=== PATIENT | male | born 1995 | race Caucasian/White ===

== ENCOUNTER 2016-06-16 19:54 | Emergency (ER) | payer SELFPAY ==
[~2016-06-16] VITALS: Wt 90.7 kg
[~2016-06-16 19:54] MED LIST: ADDERALL XR 3030 MG PO; ADDERALL XR25 MG PO; CONCERTA54 MG PO; FLEXERIL5 MG PO; MOTRIN400 MG PO; MOTRIN600 MG PO; MOTRIN800 MG PO; Motrin,Rufen800 MG PO; SEROQUEL100 MG PO; SEROQUEL300 MG PO; ULTRAM50 MG PO; VICODIN 5/500 505 MG PO; VISTARIL50 MG PO; XANAX1 MG PO; ZOFRAN ODT4 MG SL
[2016-06-16 20:51] LABS: BASO % 0.1 % (0.0-1.0); EOS % 0.2 % (1.0-4.0); HEMATOCRIT 38.9 % (42.0-52.0); HEMOGLOBIN 13.5 g/dl (14.0-18.0); LYMPH # 2.3 10*3/uL (1.3-4.4); LYMPH % 17.1 % (27.0-41.0); MEAN CELL VOLUME 87.6 fl (80.0-94.0); MEAN CORPUSCULAR HGB 30.4 pg (27.0-31.0); MEAN CORPUSCULAR HGB CONC 34.7 g/dl (33.0-37.0); MEAN PLATELET VOLUME 9.2 fl (9.6-12.3); MONO # 1.1 10*3/uL (0.1-1.0); MONO % 8.2 % (3.0-9.0); NEUT # 9.9 10*3/uL (2.3-7.9); NEUT % 74.1 % (47.0-73.0); PLATELET COUNT AUTOMATED 177 10*3/uL (130-400); RED BLOOD COUNT 4.44 10*6/uL (4.50-5.90); RED CELL DISTRI WIDTH 12.9 % (0-14.5); WHITE BLOOD COUNT 13.4 10*3/uL (4.8-10.8)
[2016-06-16 21:04] LABS: BUN 12 mg/dl (7-24); CARBON DIOXIDE 26 mmol/L (21-32); CHLORIDE 100 mmol/L (98-107); EST GLOM FILT AFRICAN AMERICAN > 60 ml/min; GLUCOSE 85 mg/dL (65-99); POTASSIUM 3.5 mmol/L (3.5-5.1); SODIUM 134 mmol/L (136-145)
[2016-06-16] MEDS ORDERED: FLAGYL500 MG PO (23:49)
[2016-06-16] MEDS ORDERED: KEFLEX500 M1 PO (23:49)
[2016-06-16] MEDS ORDERED: Motrin,Rufen800 MG PO (23:49)
== END 2016-06-17 01:28 | disposition home or self-care (01) ==
LOC: ED 19:54
PROVIDERS: Emergency Medicine Emergency Medical Services
DX: L03.317 Cellulitis of buttock (principal); F41.9 Anxiety disorder, unspecified; F90.9 Attention-deficit hyperactivity disorder, unspecified type; I99.8 Other disorder of circulatory system; F12.10 Cannabis abuse, uncomplicated; F14.10 Cocaine abuse, uncomplicated; F11.10 Opioid abuse, uncomplicated

== ENCOUNTER 2016-07-25 08:00 | Inpatient (IN) | payer SELFPAY ==
[~2016-07-25] VITALS: Ht 203.2 cm; Wt 102.1 kg
[2016-07-25] VITALS (10 sets, daily range): BP systolic 103–120; BP diastolic 53–69
--- NOTE | ~2016-07-25 | CON ---
[place], [place] REPORT OF CONSULTATION NAME: BRIANNA COELLO UNIT #: [id number] ROOM: [place] [address] DOCTOR: EFREM GRECO MD,BETTINA BIRTHDATE: [birth year] DOS: 07/26/2016 PULMONARY CONSULTATION EVALUATION AND MANAGEMENT The pulmonary critical evaluation was done for this patient. REASON FOR CONSULTATION: The patient with acute respiratory failure. HISTORY OF PRESENT ILLNESS: A 21-year-old -[place] male for this patient who has been [place] to be unresponsive [place] the gas station on the curb. The patient was noted change in mental status, drowsiness, sleepiness. He was noted with a block of marijuana by the police, which was confiscated. The patient was advised either going to the [facility] or to the hospital. The patient agreed to come to the hospital and enroute he pulled out the pouch probably containing narcotic from the rectal area and reinserted again further deeper after that. The patient was brought to the hospital, was not answering questions noted change in mental status and some confusional status as well. Urine drug screen was noted positive for multiple illicit drugs. The patient was asked about removal of the drug pouch of the patient because of possibility of inadvertent rupture resulting in major toxicity of the patient and . The patient was not cooperative with that. Subsequently, the patient was intubated, after sedation of the patient and the pouches were recovered by surgery staff with manual manipulation effectively. The abdomen x-rays which were done prior and after removal of pouches does show complete removal of those foreign bodies noted in the rectal area. Currently, the patient is noted on mechanical ventilator requiring high dose of intravenous sedation, the patient with Diprivan and also receiving the IV Versed p.r.n. use 5 mg q.1 hour. He had not been noted any evidence of hypotension or tachycardia at the present time. The patient also remains afebrile. He has not been noted an excessive secretion production from the endotracheal tube. He had not been reported with any findings of hemoptysis. The remaining review of systems could not be completed from the patient because of the patient's current intubation and mechanical ventilatory status. The remaining history could not be obtained as well since the patient is intubated on mechanical ventilation. All the history essentially was reviewed for the patient and completed for the patient after review of the medical record of the patient by the other physician. PAST MEDICAL HISTORY: 1. The patient was noted with a history of ADHD. 2. Past history of cellulitis of the buttock. 3. History of multiple illicit drug use including cocaine, marijuana, opiates. 4. History of tobacco use. SOCIAL HISTORY: The patient has been noted history of tobacco use for long-term for this patient, quantity was unknown. History of illicit drug use was also described. FAMILY HISTORY: For the patient, both parents were noted alive for the patient [place], [place] REPORT OF CONSULTATION NAME: BRIANNA COELLO UNIT #: [id number] ROOM: [place] [address] DOCTOR: EFREM GRECO MD,BETTINA BIRTHDATE: [birth year] without any known medical illnesses. HOME MEDICATIONS: Essentially noted no known home medications. DRUG ALLERGIES: Reported as no known drug allergies. PHYSICAL EXAMINATION: GENERAL: This is a 21-year-old -[place] male, currently intubated and sedated on mechanical ventilation. Height for the patient recorded by the nursing staff at the time of current admission with height of 6 feet. Weight was noted as 102 kilograms. VITAL SIGNS: The patient showed the temperature was 99 degree Fahrenheit to normal temperature, respiratory rate 14-12, heart rate 75-63, blood pressure 110/60-121/76. Pulse oxygen saturation 30% oxygen 100% saturation recorded. Intake for the patient 3.292 liters, output 2.275 liters. HEENT: Moderate obesity. The patient orally intubated with endotracheal tube #6. Neck was supple. Head was atraumatic. Eyes: Nonicterus. CARDIOVASCULAR SYSTEM: S1, S2 is audible. LUNGS: The patient was noted without any wheeze or crackles at the present time. The breaths are noted mildly decreased bilaterally. ABDOMEN: Soft, obese, nontender. EXTREMITIES: Show no edema, clubbing, cyanosis, visible skin. No lesions or rashes. MUSCULOSKELETAL SYMPTOMS: No gross deformities. CENTRAL NERVOUS SYSTEM: Could not be examined since the patient is intubated. LABORATORY DATA: Lactic acid 07/25/2016 was 1.0 on admission. CBC on 07/25/2016 on admission, WBC count 4.9, hemoglobin 12.3, hematocrit 35.9, platelet count was normal. PT/PTT for the patient was noted as normal. The CMP for this patient that was done for this patient on 07/25/2016 on admission was noted as normal. CMP of the patient noted on 07/25/2016 for this patient, potassium 3.4, remaining electrolytes grossly normal. The liver function tests were normal. CK-MB and troponin normal. Urine drug screen positive for benzodiazepine, THC, cocaine and opiates. Arterial blood gas of the patient, pH of 7.38, pCO2 of 45, pO2 of 132 postintubation 30% oxygen assist control mode of mechanical ventilation. ABG this morning, pH of 7.35, pCO2 of 49, pO2 of 105. CBC 07/26/2016 for the patient essentially remains grossly normal. CK-MB and troponin repeated again this morning were noted as normal. Chest x-ray which was done this morning, endotracheal tube was noted in proper position. No acute abnormalities such as pleural effusion noted. The PT/INR this morning was repeated again and noted as normal. IMPRESSION: 1. The patient who has been noted with current use of illicit drugs, multifactorial change in mental status with acute respiratory failure as a factor and also requiring sedation. 2. Removal of the illicit drugs in the form of pouches from the rectal area for this patient as well. 3. History of chronic dependence on the illicit drugs. There were no signs of any active infection or others. [place], [place] REPORT OF CONSULTATION NAME: BRIANNA COELLO UNIT #: [id number] ROOM: [place] [address] DOCTOR: BETTINA AYALA MD BIRTHDATE: [birth year] 4. History of chronic eqru-fx-qoeazhlu obesity as well. 5. History of tobacco dependence. Several psychiatric problem has been listed in the past history as well. PLAN OF TREATMENT: Discontinue sedation completely. Once the patient noted awake and alert, consider extubation for this patient as the patient does not require to be intubated for any reason. Monitor respiratory status post extubation. Start the patient on oral diet for this patient post-extubation if noted with the normal mental status. Further supportive therapy, plan of management and care and treatment as in progress. Other treatment changes will be done for the patient. Ventilator bundle management continue for the patient in progress for the patient since hospitalization. Further change in treatment done based on progression of the illness. Total time for pulmonary critical care evaluation and management was 33 minutes. BETTINA TOPETE MD CM:CONSTR:REPORT OF CONSULTATION 1206 07/28/16 1538 interface
[~2016-07-25 08:00] MED LIST changes: +FLAGYL500 MG PO; +KEFLEX500 M1 PO
[2016-07-25 09:36] LABS: BASO % 0.4 % (0.0-1.0); EOS # 0.1 10*3/uL (0.0-0.4); EOS % 2.6 % (1.0-4.0); HEMATOCRIT 35.9 % (42.0-52.0); HEMOGLOBIN 12.3 g/dl (14.0-18.0); LYMPH # 1.9 10*3/uL (1.3-4.4); LYMPH % 38.3 % (27.0-41.0); MEAN CELL VOLUME 87.8 fl (80.0-94.0); MEAN CORPUSCULAR HGB 30.1 pg (27.0-31.0); MEAN CORPUSCULAR HGB CONC 34.3 g/dl (33.0-37.0); MONO # 0.7 10*3/uL (0.1-1.0); MONO % 13.4 % (3.0-9.0); NEUT # 2.2 10*3/uL (2.3-7.9); NEUT % 45.1 % (47.0-73.0); PLATELET COUNT AUTOMATED 175 10*3/uL (130-400); RED BLOOD COUNT 4.09 10*6/uL (4.50-5.90); RED CELL DISTRI WIDTH 13.8 % (0-14.5); WHITE BLOOD COUNT 4.9 10*3/uL (4.8-10.8)
[2016-07-25 09:44] LABS: PROTHROMBIN TIME 10.4 SECONDS (9.0-12.4)
[2016-07-25 09:51] LABS: ALBUMIN 3.6 gm/dl (3.1-4.5); ALKALINE PHOSPHATASE 101 U/L (45-117); BILIRUBIN, TOTAL 0.3 mg/dl (0.2-1.0); BUN 15 mg/dl (7-24); CARBON DIOXIDE 28 mmol/L (21-32); CHLORIDE 108 mmol/L (98-107); CKMB 1.1 ng/ml (0.5-3.6); CPK 213 U/L (39-308); EST GLOM FILT AFRICAN AMERICAN > 60 ml/min; GLUCOSE 86 mg/dL (65-99); MAGNESIUM 2.2 mg/dL (1.5-2.1); POTASSIUM 3.4 mmol/L (3.5-5.1); SGOT/AST 22 IU/L (3-35); SGPT/ALT 27 U/L (12-78); SODIUM 143 mmol/L (136-145); TOTAL PROTEIN 8.4 gm/dL (6.4-8.2)
[2016-07-25 09:52] LABS: C-REACTIVE PROTEIN < 0.29 MG/DL (0-0.3); TROPONIN I < 0.015 ng/ml (<0.045)
[2016-07-25 13:59] LABS: BILIRUBIN NEGATIVE (NEGATIVE); BLOOD NEGATIVE (NEGATIVE); CLARITY CLEAR (CLEAR); COLOR YELLOW (YELLOW); GLUCOSE NEGATIVE (NEGATIVE); KETONE NEGATIVE (NEGATIVE); LEUKO ESTERASE NEGATIVE (NEGATIVE); NITRITE NEGATIVE (NEGATIVE); PH 5.5 (5.0-9.0); PROTEIN NEGATIVE (NEGATIVE); UROBILINOGEN 0.2 E.U./dl (0.2-1.0)
[2016-07-25 14:02] LABS: URINE AMPHETAMINES < 1000 (1000ng/ml); URINE BARBITURATES < 200 (200ng/ml); URINE COCAINE > 300 (300ng/ml)
[2016-07-25 14:08] LABS: BACTERIA TRACE; URINE REFLEX COMMENT NO (NO)
[2016-07-25 18:14] LABS: ABG BASE EXCESS 1.3 mmol/L (-2.0-2.0); ABG HCO3 26.6 mmol/l (22-26); ABG TEMPERATURE 97.5 F (98.0-99.0); ARTERIAL BLOOD GAS PH 7.381 (7.35-7.45)
[2016-07-25 18:24] LABS: CPK 200 U/L (39-308)
[2016-07-25 18:28] LABS: TROPONIN I < 0.015 ng/ml (<0.045)
[2016-07-26] VITALS (7 sets, daily range): BP systolic 104–124; BP diastolic 52–80
[2016-07-26 00:38] LABS: CPK 171 U/L (39-308)
[2016-07-26 00:39] LABS: TROPONIN I < 0.015 ng/ml (<0.045)
[2016-07-26 05:46] LABS: ABG BASE EXCESS 1.2 mmol/L (-2.0-2.0); ABG CO2 CONTENT 28.8 mmol/L (23-27); ABG HCO3 27.2 mmol/l (22-26); ABG TEMPERATURE 97.3 F (98.0-99.0); ARTERIAL BLOOD GAS PH 7.358 (7.35-7.45)
[2016-07-26 08:17] LABS: BASO % 0.2 % (0.0-1.0); EOS # 0.3 10*3/uL (0.0-0.4); EOS % 4.3 % (1.0-4.0); HEMATOCRIT 39.6 % (42.0-52.0); HEMOGLOBIN 13.4 g/dl (14.0-18.0); LYMPH # 1.2 10*3/uL (1.3-4.4); LYMPH % 18.2 % (27.0-41.0); MEAN CELL VOLUME 89.4 fl (80.0-94.0); MEAN CORPUSCULAR HGB 30.2 pg (27.0-31.0); MEAN CORPUSCULAR HGB CONC 33.8 g/dl (33.0-37.0); MEAN PLATELET VOLUME 9.7 fl (9.6-12.3); MONO # 0.6 10*3/uL (0.1-1.0); MONO % 9.2 % (3.0-9.0); NEUT # 4.5 10*3/uL (2.3-7.9); NEUT % 67.9 % (47.0-73.0); PLATELET COUNT AUTOMATED 180 10*3/uL (130-400); RED BLOOD COUNT 4.43 10*6/uL (4.50-5.90); RED CELL DISTRI WIDTH 14.2 % (0-14.5); WHITE BLOOD COUNT 6.6 10*3/uL (4.8-10.8)
[2016-07-26 08:17] LABS: CKMB 1.2 ng/ml (0.5-3.6)
[2016-07-26 08:25] LABS: CPK 231 U/L (39-308); TROPONIN I < 0.015 ng/ml (<0.045)
[2016-07-26 08:45] LABS: ALBUMIN 3.3 gm/dl (3.1-4.5); ALKALINE PHOSPHATASE 97 U/L (45-117); BILIRUBIN, TOTAL 0.4 mg/dl (0.2-1.0); BUN 8 mg/dl (7-24); CARBON DIOXIDE 30 mmol/L (21-32); CHLORIDE 111 mmol/L (98-107); CHOLESTEROL 134 mg/dL (<200); EST GLOM FILT AFRICAN AMERICAN > 60 ml/min; FREE T4 1.07 ng/dl (0.76-1.46); GLUCOSE 84 mg/dL (65-99); HDL CHOLESTEROL 44 mg/dl (40-60); LDL CHOLESTEROL 61 mg/dL (9-159); MAGNESIUM 2.3 mg/dL (1.5-2.1); PHOSPHOROUS 3.6 mg/dL (2.5-4.9); POTASSIUM 3.8 mmol/L (3.5-5.1); PROTHROMBIN TIME 10.3 SECONDS (9.0-12.4); SGOT/AST 25 IU/L (3-35); SGPT/ALT 25 U/L (12-78); SODIUM 147 mmol/L (136-145); TOTAL PROTEIN 7.8 gm/dL (6.4-8.2); TRIGLYCERIDES 147 mg/dl (<150); VLDL CHOLESTEROL 29 mg/dL (6-40)
[2016-07-26 09:08] LABS: VITAMIN D, 25-HYDROXY 24.1 ng/mL (30-100)
[2016-07-26 10:17] LABS: FOLIC ACID 20.93 ng/mL (>5.38)
== END 2016-07-26 19:31 | disposition left against medical advice (07) | DRG 393 ==
LOC: ED 08:00 → EDHOLD 13:11 → ICCU 13:44 → 5E 15:14 → ICCU 15:24
PROVIDERS: Emergency Medicine; Internal Medicine; Internal Medicine Critical Care Medicine
PROC: 5A1935Z Respiratory Ventilation, Less than 24 Consecutive Hours (ICD-10-PCS; principal; 2016-07-25)
PROC: 0BH17EZ Insertion of Endotracheal Airway into Trachea, Via Natural or Artificial Opening (ICD-10-PCS; principal; 2016-07-25)
DX: T18.5XXA Foreign body in anus and rectum, initial encounter (principal); G93.41 Metabolic encephalopathy; J96.00 Acute respiratory failure, unspecified whether with hypoxia or hypercapnia; F19.10 Other psychoactive substance abuse, uncomplicated; F90.9 Attention-deficit hyperactivity disorder, unspecified type; F41.9 Anxiety disorder, unspecified; D64.9 Anemia, unspecified; E87.6 Hypokalemia; E83.41 Hypermagnesemia; F11.10 Opioid abuse, uncomplicated; F12.10 Cannabis abuse, uncomplicated; F14.10 Cocaine abuse, uncomplicated; F13.10 Sedative, hypnotic or anxiolytic abuse, uncomplicated; J02.9 Acute pharyngitis, unspecified; L29.9 Pruritus, unspecified; Z53.21 Procedure and treatment not carried out due to patient leaving prior to being seen by health care provider; X58.XXXA Exposure to other specified factors, initial encounter; Y93.89 Activity, other specified; Y92.89 Other specified places as the place of occurrence of the external cause; Y99.8 Other external cause status

== ENCOUNTER → 2016-09-05 | Outpatient (CLI) | payer OTHER ==
[2016-09-05 15:21] LABS: HEMATOCRIT 44.3 % (42.0-52.0); HEMOGLOBIN 15.1 g/dl (14.0-18.0); MEAN CELL VOLUME 87.4 fl (80.0-94.0); MEAN CORPUSCULAR HGB 29.8 pg (27.0-31.0); MEAN CORPUSCULAR HGB CONC 34.1 g/dl (33.0-37.0); MEAN PLATELET VOLUME 9.4 fl (9.6-12.3); RED BLOOD COUNT 5.07 10*6/uL (4.50-5.90); RED CELL DISTRI WIDTH 14.5 % (0-14.5); WHITE BLOOD COUNT 8.2 10*3/uL (4.8-10.8)
[2016-09-05 15:35] LABS: ALBUMIN 3.7 gm/dl (3.1-4.5); ALKALINE PHOSPHATASE 88 U/L (45-117); BILIRUBIN, TOTAL 0.5 mg/dl (0.2-1.0); BUN 8 mg/dl (7-24); CARBON DIOXIDE 27 mmol/L (21-32); CHLORIDE 105 mmol/L (98-107); CHOLESTEROL 114 mg/dL (<200); EST GLOM FILT AFRICAN AMERICAN > 60 ml/min; GLUCOSE 97 mg/dL (65-99); HDL CHOLESTEROL 42 mg/dl (40-60); LDL CHOLESTEROL 48 mg/dL (9-159); SGOT/AST 21 IU/L (3-35); SGPT/ALT 16 U/L (12-78); SODIUM 141 mmol/L (136-145); TOTAL PROTEIN 8.7 gm/dL (6.4-8.2); TRIGLYCERIDES 121 mg/dl (<150); VLDL CHOLESTEROL 24 mg/dL (6-40)
[2016-09-06 07:46] LABS: HEPATITIS C VIRUS ANTIBODY 0.1 s/co (0.0-0.9)
[2016-09-06 16:13] LABS: LOG10 HIV-1 RNA 4.118 (.)
== END | disposition home or self-care (01) ==
LOC: LAB 14:57
PROVIDERS: Family Medicine
DX: Z13.220 Encounter for screening for lipoid disorders (principal); E55.9 Vitamin D deficiency, unspecified; R53.83 Other fatigue; R75 Inconclusive laboratory evidence of human immunodeficiency virus [HIV]

== ENCOUNTER 2016-10-08 14:44 | Emergency (ER) | payer OTHER ==
[~2016-10-08] VITALS: Ht 180.3 cm; Wt 74.8 kg
[2016-10-08 14:59] VITALS: BP 143/88
== END 2016-10-08 17:37 | disposition short-term general hospital (02) ==
LOC: ED 14:44
DX: S02.91XA Unspecified fracture of skull, initial encounter for closed fracture (principal); S06.319A Contusion and laceration of right cerebrum with loss of consciousness of unspecified duration, initial encounter; S06.2X9A Diffuse traumatic brain injury with loss of consciousness of unspecified duration, initial encounter; F12.10 Cannabis abuse, uncomplicated; F17.200 Nicotine dependence, unspecified, uncomplicated; F90.9 Attention-deficit hyperactivity disorder, unspecified type; Y08.89XA Assault by other specified means, initial encounter; Y93.89 Activity, other specified; Y92.413 State road as the place of occurrence of the external cause; Y99.9 Unspecified external cause status

== ENCOUNTER 2016-10-15 18:26 | Emergency (ER) | payer OTHER ==
[~2016-10-15] VITALS: Ht 182.8 cm; Wt 99.8 kg
[2016-10-15 18:40] VITALS: BP 120/76
== END 2016-10-15 18:53 | disposition left against medical advice (07) ==
LOC: ED 18:26
DX: S09.90XA Unspecified injury of head, initial encounter (principal); R51 Headache; F17.200 Nicotine dependence, unspecified, uncomplicated; F12.10 Cannabis abuse, uncomplicated; F90.9 Attention-deficit hyperactivity disorder, unspecified type; F14.10 Cocaine abuse, uncomplicated; Z90.89 Acquired absence of other organs; Z53.21 Procedure and treatment not carried out due to patient leaving prior to being seen by health care provider; W19.XXXA Unspecified fall, initial encounter; Y93.89 Activity, other specified; Y92.89 Other specified places as the place of occurrence of the external cause; Y99.9 Unspecified external cause status

== ENCOUNTER 2016-10-26 02:51 | Emergency (ER) | payer OTHER ==
[~2016-10-26] VITALS: Ht 182.8 cm; Wt 99.8 kg
[2016-10-26 03:35] LABS: BASO % 0.4 % (0.0-1.0); EOS # 0.1 10*3/uL (0.0-0.4); EOS % 1.5 % (1.0-4.0); HEMOGLOBIN 11.7 g/dl (14.0-18.0); LYMPH # 1.4 10*3/uL (1.3-4.4); MEAN CORPUSCULAR HGB 29.3 pg (27.0-31.0); MEAN CORPUSCULAR HGB CONC 34.4 g/dl (33.0-37.0); MEAN PLATELET VOLUME 8.7 fl (9.6-12.3); MONO # 0.4 10*3/uL (0.1-1.0); MONO % 8.8 % (3.0-9.0); NEUT # 2.9 10*3/uL (2.3-7.9); NEUT % 60.1 % (47.0-73.0); PLATELET COUNT AUTOMATED 307 10*3/uL (130-400); RED CELL DISTRI WIDTH 13.4 % (0-14.5); WHITE BLOOD COUNT 4.8 10*3/uL (4.8-10.8)
[2016-10-26 03:49] LABS: ALBUMIN 3.4 gm/dl (3.1-4.5); BILIRUBIN, TOTAL 0.2 mg/dl (0.2-1.0); BUN 13 mg/dl (7-24); C-REACTIVE PROTEIN < 0.29 MG/DL (0-0.3); CARBON DIOXIDE 26 mmol/L (21-32); CHLORIDE 110 mmol/L (98-107); EST GLOM FILT AFRICAN AMERICAN > 60 ml/min; GLUCOSE 91 mg/dL (65-99); POTASSIUM 3.4 mmol/L (3.5-5.1); SGOT/AST 12 IU/L (3-35); SGPT/ALT 14 U/L (12-78); SODIUM 141 mmol/L (136-145); TOTAL PROTEIN 7.8 gm/dL (6.4-8.2)
[2016-10-26 04:00] LABS: BILIRUBIN NEGATIVE (NEGATIVE); BLOOD NEGATIVE (NEGATIVE); CLARITY CLEAR (CLEAR); COLOR YELLOW (YELLOW); GLUCOSE NEGATIVE (NEGATIVE); KETONE NEGATIVE (NEGATIVE); LEUKO ESTERASE NEGATIVE (NEGATIVE); NITRITE NEGATIVE (NEGATIVE); PROTEIN TRACE (NEGATIVE); SPECIFIC GRAVITY >= 1.030 (1.005-1.030); UROBILINOGEN 0.2 E.U./dl (0.2-1.0)
[2016-10-26 04:02] LABS: ALKALINE PHOSPHATASE 77 U/L (45-117)
[2016-10-26 04:06] LABS: URINE AMPHETAMINES < 1000 (1000ng/ml); URINE BARBITURATES < 200 (200ng/ml); URINE COCAINE > 300 (300ng/ml)
[2016-10-26 04:07] LABS: MUCOUS TRACE
[2016-10-26 06:06] VITALS: BP 113/56
[2016-10-26] MEDS ORDERED: KEPPRA500 MG PO (06:56)
== END 2016-10-26 09:05 | disposition home or self-care (01) ==
LOC: ED 02:51
PROVIDERS: Emergency Medicine Emergency Medical Services
DX: G40.909 Epilepsy, unspecified, not intractable, without status epilepticus (principal); S02.19XD Other fracture of base of skull, subsequent encounter for fracture with routine healing; F12.10 Cannabis abuse, uncomplicated; X58.XXXD Exposure to other specified factors, subsequent encounter

== ENCOUNTER 2017-01-09 14:07 | Inpatient (IN) | payer OTHER ==
[~2017-01-09] VITALS: Ht 182.8 cm; Wt 92.6 kg
[~2017-01-09 14:07] MED LIST changes: -ADDERALL XR20 MG PO
[2017-01-09 14:21] VITALS: BP 130/79
[2017-01-09 14:47] LABS: BILIRUBIN NEGATIVE (NEGATIVE); BLOOD NEGATIVE (NEGATIVE); CLARITY CLEAR (CLEAR); COLOR YELLOW (YELLOW); GLUCOSE NEGATIVE (NEGATIVE); KETONE TRACE (NEGATIVE); LEUKO ESTERASE TRACE (NEGATIVE); NITRITE NEGATIVE (NEGATIVE); PH 6.5 (5.0-9.0); UROBILINOGEN 0.2 E.U./dl (0.2-1.0)
[2017-01-09 14:56] LABS: URINE AMPHETAMINES < 1000 (1000ng/ml); URINE BARBITURATES < 200 (200ng/ml); URINE BENZODIAZEPINES < 200 (200ng/ml); URINE CANNABINOIDS (THC) > 50 (50ng/ml); URINE COCAINE > 300 (300ng/ml); URINE METHADONE < 300 (300ng/ml); URINE OPIATES < 300 (300ng/ml)
[2017-01-09 15:01] LABS: BACTERIA TRACE; MUCOUS 1+
[2017-01-09 15:04] LABS: URINE PHENCYCLIDINE < 25 (25ng/ml)
[2017-01-09 16:00] VITALS: BP 115/58
[2017-01-09 17:30] VITALS: BP 118/74
--- NOTE | 2017-01-09 17:30 | NUR ---
Time: 1729 A 21 year old MALE admitted to 5E under services of SUZANNE TEAGUE DO. Pt. arrived via bed from ER. Chief complaint: OPIATE WITHDRAWAL. ALEXANDRE PALAFOX
--- NOTE | 2017-01-09 17:34 | NUR ---
REPORT GIVEN TO GEORGI CLEMONS AT THIS TIME PATIENT TAKEN TO 5TH FLOOR BY DALE PARRA AT THIS TIME.
--- NOTE | 2017-01-09 17:45 | NUR ---
PATIENT RESTING QUIETLY IN BED, NO SXS OF DISTRESS. NO VOICED COMPLAINTS AT THIS TIME.RESPIRATIONS EASY/REGULAR. CALL LIGHT IN REACH. WILL MONITOR.
[2017-01-09] MEDS ORDERED: SEROQUEL XR300 MG PO (17:52)
[2017-01-09] MEDS ORDERED: ADDERALL XR20 MG PO (17:53)
[2017-01-09 18:22] VITALS: BP 142/81
--- NOTE | 2017-01-09 23:31 | NUR ---
Patient reports the following symptoms of withdrawal: body aches, leg pain, nausea and cravings. Patient given scheduled/PRN medication to control withdrawal symptoms. Close observation will be maintained.
[2017-01-10] VITALS: BP 122/66
--- NOTE | 2017-01-10 00:45 | NUR ---
Patient resting. Responding to scheduled medications with fewer complaints of pain and anxiety.
[2017-01-10 05:11] LABS: HEMOGLOBIN 12.9 g/dL (12.6-17.7); RBC 4.27 x10E6/uL (4.14-5.80); WBC 3.9 x10E3/uL (3.4-10.8)
[2017-01-10 08:00] VITALS: BP 100/55
[2017-01-10 11:04] LABS: ABSOLUTE CD 4 HELPER 172 /uL (359-1519); CD 4 POS LYMPH, % 14.3 % (30.8-58.5)
[2017-01-10 12:00] VITALS: BP 133/82
[2017-01-10 16:00] VITALS: BP 121/64
--- NOTE | 2017-01-10 16:16 | NUR ---
D/C PLANNING: PATIENT WANTS TO GO TO [facility] FOR [facility] TREAT[facility] FOR HIS AFTERCARE PLAN. ALEXI LEONARD B.A. [facility]ILDREN'S [employer]
--- NOTE | 2017-01-10 18:11 | NUR ---
NOTIFIED DR MOONEY OF NEW CONSULT FOR LOW CD4 COUNT.
[2017-01-10 20:00] VITALS: BP 121/66
--- NOTE | 2017-01-10 23:00 | NUR ---
Patient resting. Responding to scheduled medications with fewer complaints of pain and anxiety.
[2017-01-11] VITALS: BP 111/46
--- NOTE | 2017-01-11 04:23 | NUR ---
SLEEPING, NO SXS OF DISTRESS. CALL LIGHT IN REACH.
--- NOTE | 2017-01-11 06:23 | NUR ---
SLEPT T/O SHIFT. NO ACUTE EVENTS OVER NIGHT. PATIENT PLEASANT/COOPERATIVE. CURRENTLY SLEEPING, NO SXS OF DISTRESS, CALL LIGHT IS IN REACH.
[2017-01-11 06:49] LABS: BASO % 0.5 % (0.0-1.0); EOS # 0.2 10*3/uL (0.0-0.4); HEMATOCRIT 37.5 % (42.0-52.0); HEMOGLOBIN 13.5 g/dl (14.0-18.0); LYMPH # 1.4 10*3/uL (1.3-4.4); LYMPH % 33.2 % (27.0-41.0); MEAN CELL VOLUME 87.4 fl (80.0-94.0); MEAN CORPUSCULAR HGB 31.5 pg (27.0-31.0); MEAN PLATELET VOLUME 9.7 fl (9.6-12.3); MONO # 0.6 10*3/uL (0.1-1.0); MONO % 13.7 % (3.0-9.0); NEUT % 48.4 % (47.0-73.0); PLATELET COUNT AUTOMATED 193 10*3/uL (130-400); RED BLOOD COUNT 4.29 10*6/uL (4.50-5.90); RED CELL DISTRI WIDTH 13.3 % (0-14.5); WHITE BLOOD COUNT 4.2 10*3/uL (4.8-10.8)
[2017-01-11 07:17] LABS: CREATININE 0.93 mg/dL (0.70-1.30)
[2017-01-11 08:00] VITALS: BP 96/56
--- NOTE | 2017-01-11 08:00 | NUR ---
PT IN BED SLEEPING, EASILY AROUSES. PT DENIES PAIN, N/V/D. LUNGS CLEAR ON AUSCULTATION. NO EDEMA NOTED.
--- NOTE | 2017-01-11 11:19 | NUR ---
PT REQUESTED MEDICATION FOR NICOTINE URGE. NICODERM PATCH APPLIED TO LEFT UPPER ARM.
[2017-01-11 11:40] VITALS: BP 109/65
--- NOTE | 2017-01-11 12:10 | NUR ---
NICOTINE PATCH EFFECTIVE PER PT.
[2017-01-11 16:00] VITALS: BP 135/73
[2017-01-11 20:00] VITALS: BP 127/67
--- NOTE | 2017-01-11 22:53 | NUR ---
PT C/O RESTLESS LEGS, ANXIETY, AND MUSCLE SPASMS. REQUIP, VISTARIL, AND ROBAXIN ADMINISTERED PO. WILL MONITOR FOR EFFECTIVENESS. ALL SAFETY MEASURES IN PLACE. PT IS COOPERATIVE AT THIS TIME. CALL LIGHT IN REACH.
--- NOTE | 2017-01-11 23:30 | NUR ---
REQUIP, VISTARIL, AND ROBAXIN EFFECTIVE. NO FURTHER COMPLAINTS. PT RESTING IN BED AT THIS TIME.
[2017-01-12] VITALS: BP 125/69
--- NOTE | 2017-01-12 03:52 | NUR ---
24 HR chart check completed.
[2017-01-12 08:00] VITALS: BP 109/63
--- NOTE | 2017-01-12 08:00 | NUR ---
PATIENT RESTING IN BED. ADMITS TO SOME CHEST PAIN RATING A 5/10. PATIENT IS REFUSING PAIN MEDICATION AT THIS TIME. STATES THAT THE SUBUTEX GIVEN WILL HELP. VOICES NO OTHER COMPLAINTS. BED IS IN LOW POSITION. CALL LIGHT IS WITHIN REACH.
[2017-01-12] MEDS ORDERED: ATARAX,VISTARIL50 MG PO (10:33)
[2017-01-12] MEDS ORDERED: ZOFRAN 4 MG ED2 TAB PO (10:33)
[2017-01-12] MEDS ORDERED: SEPTDS PO (10:33)
[2017-01-12 11:55] VITALS: BP 125/66
--- NOTE | 2017-01-12 12:55 | NUR ---
Discharge instructions reviewed with patient/family. Patient receptive and verbalizes understanding. Follow-up care arranged. Written instructions given to patient/family. ANGÉLICA YBARRA
== END 2017-01-12 12:55 | disposition home or self-care (01) | DRG 896 ==
LOC: ED 14:07 → 5E 15:08 → EDHOLD 15:08 → 5E 17:27
PROVIDERS: Nurse Practitioner Family; ADMIT Internal Medicine
DX: F11.23 Opioid dependence with withdrawal (principal); B20 Human immunodeficiency virus [HIV] disease; D64.9 Anemia, unspecified; F12.10 Cannabis abuse, uncomplicated; F14.10 Cocaine abuse, uncomplicated; G40.909 Epilepsy, unspecified, not intractable, without status epilepticus; F41.9 Anxiety disorder, unspecified; F90.9 Attention-deficit hyperactivity disorder, unspecified type; G25.81 Restless legs syndrome; F17.210 Nicotine dependence, cigarettes, uncomplicated; Z79.899 Other long term (current) drug therapy; Z71.6 Tobacco abuse counseling

== ENCOUNTER → 2017-01-09 | Outpatient (CLI) | payer OTHER ==
[~2017-01-09] MED LIST changes: +ADDERALL XR20 MG PO; +KEPPRA500 MG PO
[2017-01-09 14:13] LABS: BASO % 0.3 % (0.0-1.0); EOS # 0.1 10*3/uL (0.0-0.4); EOS % 2.5 % (1.0-4.0); HEMATOCRIT 37.2 % (42.0-52.0); HEMOGLOBIN 13.3 g/dl (14.0-18.0); LYMPH # 1.2 10*3/uL (1.3-4.4); LYMPH % 30.3 % (27.0-41.0); MEAN CELL VOLUME 86.5 fl (80.0-94.0); MEAN CORPUSCULAR HGB 30.9 pg (27.0-31.0); MEAN CORPUSCULAR HGB CONC 35.8 g/dl (33.0-37.0); MEAN PLATELET VOLUME 9.4 fl (9.6-12.3); MONO # 0.3 10*3/uL (0.1-1.0); MONO % 7.8 % (3.0-9.0); NEUT # 2.4 10*3/uL (2.3-7.9); NEUT % 59.1 % (47.0-73.0); PLATELET COUNT AUTOMATED 205 10*3/uL (130-400); RED CELL DISTRI WIDTH 13.5 % (0-14.5)
[2017-01-09 14:30] LABS: ALBUMIN 3.8 gm/dl (3.1-4.5); ALKALINE PHOSPHATASE 86 U/L (45-117); BUN 12 mg/dl (7-24); POTASSIUM 3.8 mmol/L (3.5-5.1); SGOT/AST 15 IU/L (3-35); SGPT/ALT 21 U/L (12-78); SODIUM 141 mmol/L (136-145); TOTAL PROTEIN 8.8 gm/dL (6.4-8.2)
[2017-01-09 14:32] LABS: CHLORIDE 110 mmol/L (98-107)
[2017-01-11 19:04] LABS: HIV 1 AB Positive (Negative); HIV 2 AB Negative (Negative)
== END | disposition home or self-care (01) ==
LOC: LAB 12:41
PROVIDERS: Nurse Practitioner Family
DX: B20 Human immunodeficiency virus [HIV] disease (principal); E55.9 Vitamin D deficiency, unspecified; Z79.899 Other long term (current) drug therapy

== ENCOUNTER 2017-01-18 16:10 | Inpatient (IN) | payer OTHER ==
[~2017-01-18] VITALS: Ht 182.8 cm; Wt 93.4 kg
[~2017-01-18 16:10] MED LIST changes: +ADDERALL XR20 MG PO; +ATARAX,VISTARIL50 MG PO; +SEPTDS PO; +SEROQUEL XR300 MG PO; +ZOFRAN 4 MG ED2 TAB PO
[2017-01-18 16:17] VITALS: BP 129/85
[2017-01-18 17:10] LABS: BASO % 0.3 % (0.0-1.0); EOS # 0.1 10*3/uL (0.0-0.4); EOS % 2.4 % (1.0-4.0); HEMATOCRIT 39.5 % (42.0-52.0); HEMOGLOBIN 13.6 g/dl (14.0-18.0); LYMPH # 1.2 10*3/uL (1.3-4.4); LYMPH % 21.6 % (27.0-41.0); MEAN CELL VOLUME 86.2 fl (80.0-94.0); MEAN CORPUSCULAR HGB 29.7 pg (27.0-31.0); MEAN CORPUSCULAR HGB CONC 34.4 g/dl (33.0-37.0); MEAN PLATELET VOLUME 9.8 fl (9.6-12.3); MONO # 0.6 10*3/uL (0.1-1.0); MONO % 9.9 % (3.0-9.0); NEUT # 3.8 10*3/uL (2.3-7.9); NEUT % 65.6 % (47.0-73.0); PLATELET COUNT AUTOMATED 223 10*3/uL (130-400); RED BLOOD COUNT 4.58 10*6/uL (4.50-5.90); WHITE BLOOD COUNT 5.7 10*3/uL (4.8-10.8)
[2017-01-18 17:26] LABS: ALKALINE PHOSPHATASE 94 U/L (45-117); BUN 7 mg/dl (7-24); CHLORIDE 110 mmol/L (98-107); POTASSIUM 4.1 mmol/L (3.5-5.1); SGOT/AST 15 IU/L (3-35); SGPT/ALT 33 U/L (12-78); SODIUM 138 mmol/L (136-145); TOTAL PROTEIN 9.4 gm/dL (6.4-8.2)
--- NOTE | 2017-01-18 17:56 | NUR ---
A MEAL WAS ORDERED FOR THE PATIENT
--- NOTE | 2017-01-18 18:13 | NUR ---
3 OF THE 4 MEDS ON THE MED REC (ALL BUT SEROQUEL) WERE JUST ORDERED ON DISCHARGE 4 DAYS AGO BUT NEVER FILLED.
--- NOTE | 2017-01-18 18:14 | NUR ---
ARRIVED TO FLOOR
--- NOTE | 2017-01-18 18:15 | NUR ---
Time: 1814 A 21 year old MALE admitted to 5E under services of SUZANNE TEAGUE DO. Pt. arrived via wheel chair from ER. Chief complaint: PENILE CELLULITIS. LONNIE LOO
[2017-01-18] MEDS ORDERED: ADDERALL 20 MG20 MG PO (18:17)
--- NOTE | 2017-01-18 18:21 | NUR ---
PER THE PATIENT THIS STARTED TO LOOSE THE SKIN THE DAY HE LEFT HERE. SAID THE DAY BEFORE HE LEFT FELT NEEDLE FEELING BUT DIDN'T SAY ANYTHING. SAYS THIS IS THE 3RD TIME HE LEFT HERE THAT THIS HAPPENED.
[2017-01-18 18:22] VITALS: BP 131/77
--- NOTE | 2017-01-18 18:34 | NUR ---
DENIES BURNING & STINGING WHEN VOIDS. DENIES ITCHING TO AREA JUST HURTS. IV VANCOMYCIN INFUSING FROM ER.
--- NOTE | 2017-01-18 18:50 | NUR ---
DR. MOSELEY TO THE FLOOR TO SEE PATIENT AND STATES HE SPOKE WITH THE CONSULT DR. ARRIOLA REGARDING PENILE CELLULITIS.
[2017-01-18 20:00] VITALS: BP 139/68
--- NOTE | 2017-01-18 20:31 | NUR ---
PT C/O PAIN TO PENIS. RATES IT A 08/27. TYLENOL 650 MG TABLET ADMINSITERED PO. WILL MONITOR FOR EFFECTIVENESS. CALLL LIGHT IN REACH.
--- NOTE | 2017-01-18 21:30 | NUR ---
TYLENOL INEFFECTIVE PER PT. PHYSICIAN NOTIFIED, AWAITING NEW ORDERS.
--- NOTE | 2017-01-18 22:20 | NUR ---
PHYSICIAN ORDERS ONE TIME DOSE OF TORADOL 60 MG. GIVEN AT THIS TIME, TOLERATED WELL BY PT. WILL MONITOR FOR EFFECTIVENESS. CALL LIGHT IN REACH.
--- NOTE | 2017-01-18 23:20 | NUR ---
TORADOL EFFECTIVE. PT RESTING IN BED, NO S/S OF DISTRESS. ALL SAFETY MEASURES IN PLACE, CALL LIGHT IN REACH.
[2017-01-19] VITALS: BP 120/63
--- NOTE | 2017-01-19 04:22 | NUR ---
24 HR chart check completed.
--- NOTE | 2017-01-19 04:48 | NUR ---
PT RESTING PEACEFULLY IN BED AT THIS TIME, NO S/S OF DISTRESS OR PAIN. RESPIRATIONS EASY AND UNLABORED. CALL LIGHT IN REACH.
[2017-01-19 06:51] LABS: BASO % 0.3 % (0.0-1.0); EOS # 0.2 10*3/uL (0.0-0.4); EOS % 4.5 % (1.0-4.0); HEMATOCRIT 36.7 % (42.0-52.0); HEMOGLOBIN 13.3 g/dl (14.0-18.0); LYMPH # 1.3 10*3/uL (1.3-4.4); LYMPH % 32.7 % (27.0-41.0); MEAN CELL VOLUME 87.2 fl (80.0-94.0); MEAN CORPUSCULAR HGB 31.6 pg (27.0-31.0); MEAN CORPUSCULAR HGB CONC 36.2 g/dl (33.0-37.0); MEAN PLATELET VOLUME 9.6 fl (9.6-12.3); MONO # 0.4 10*3/uL (0.1-1.0); MONO % 11.1 % (3.0-9.0); NEUT % 51.4 % (47.0-73.0); PLATELET COUNT AUTOMATED 192 10*3/uL (130-400); RED BLOOD COUNT 4.21 10*6/uL (4.50-5.90)
[2017-01-19 07:34] LABS: BUN 11 mg/dl (7-24); CHLORIDE 109 mmol/L (98-107); PHOSPHOROUS 3.9 mg/dL (2.5-4.9); POTASSIUM 3.8 mmol/L (3.5-5.1); SODIUM 139 mmol/L (136-145)
[2017-01-19 07:41] LABS: THYROID STIM HORMONE (HS) 0.854 uIU/ml (0.358-4.75)
[2017-01-19 08:00] VITALS: BP 98/56
[2017-01-19 08:06] LABS: VITAMIN D, 25-HYDROXY 29.7 ng/mL (30-100)
--- NOTE | 2017-01-19 08:30 | NUR ---
MEDICAL SUPPLY TECHNICIAN VS. PT STATES HE IS ESSENTIALLY HOMELESS. UPON QUESTIONING, STATES HE HAS BEEN STAYING WITH HIS GIRLFRIEND BUT CANNOT LIVE THERE. OFFERED HOMELESS LONG-TERM INFO. STATES HE WILL LIKELY GO BACK TO GIRLFRIEND[place]S [place] BUT WOULD LIKE THE INFORMATION. [place] [facility]ER WILL PROVIDE THIS LATER THIS AM.
--- NOTE | 2017-01-19 09:02 | NUR ---
Patient requested list of homeless shelters. Provided list to patient.
--- NOTE | 2017-01-19 10:45 | NUR ---
BRIANNA COELLO [id number] Please refer to the physician's history and physical for past medical history, comorbid conditions, and allergies. Diagnosis: PENILE CELLULITIS Woo Score: 22,LOW OR NO RISK WOUND DESCRIPTIONS: Location of the wound: penis Thickness: Full Size: 3.5cm x 8.0cm x 0.1cm Tunneling: none Undermining: none Sinus Tract: none Presence of Exudate: Purulent Amount: Light Color: Yellow, red, brown Odor: None Periwound Skin Appearance: Erythema Wound edges: approximated Pain (associated with wound): very tender to touch How does patient state this happened? pt unsure how it happen but stated started about a week ago Surface the patient is resting on: Isoflex SKIN PREVENTION RECOMMENDATION: 1. Pressure redistribution support surface as appropriate 2. Elevate heels 3. Remove boots/TEDS every shift and reapply 4. Head of bed 30 degrees as tolerated 5. Assess nutrition and hydration 6. Manage moisture 7. Avoid the use of containment devices while in bed 8. Use absorptive products on surfaces limit layers of linens on bed 9. Turn and reposition every 1-2 hours in bed and every 1 hour in chair as tolerated 10. Weight shifts every 15 minutes while up in chair 11. Offloading with pillows or device to keep heels elevated off bed 12. Monitor skin at least every shift 13. Inspect under medical devices twice a day WOUND TREATMENT RECOMMENDATIONS: Cleanse area with nss and apply bactroban BID no cover dressing.
[2017-01-19 12:00] VITALS: BP 130/73
[2017-01-19 16:00] VITALS: BP 126/66
[2017-01-19] MEDS ORDERED: ZITHROMAX1 GM PO (16:33)
[2017-01-19] MEDS ORDERED: ACYCLOVIR400 MG PO (16:33)
[2017-01-19] MEDS ORDERED: DOXYCYCLINE100 M3 PO (16:33)
--- NOTE | 2017-01-19 20:10 | NUR ---
PATIENT LEFT [place] AT THIS TIME. SAID HE HAD TO TAKE HIS DAUGHTER TO [place] BECAUSE SHE WAS HAVING SEIZURES. PATIENT LEFT WITHOUT HAVING IV REMOVED.
[2017-01-22 00:03] LABS: HERPES VIRUS CULTURE WO/TYPING Negative (.)
== END 2017-01-19 20:10 | disposition left against medical advice (07) | DRG 977 ==
LOC: ED 16:10 → 5E 18:01
PROVIDERS: Physician Assistant; Student in an Organized Health Care Education/Training Program; ADMIT Internal Medicine
DX: B20 Human immunodeficiency virus [HIV] disease (principal); E87.8 Other disorders of electrolyte and fluid balance, not elsewhere classified; F11.23 Opioid dependence with withdrawal; N48.22 Cellulitis of corpus cavernosum and penis; F07.81 Postconcussional syndrome; G40.909 Epilepsy, unspecified, not intractable, without status epilepticus; F12.10 Cannabis abuse, uncomplicated; F41.9 Anxiety disorder, unspecified; F90.9 Attention-deficit hyperactivity disorder, unspecified type; D64.9 Anemia, unspecified; F14.10 Cocaine abuse, uncomplicated; Z53.21 Procedure and treatment not carried out due to patient leaving prior to being seen by health care provider; Z71.6 Tobacco abuse counseling; Z72.0 Tobacco use; Z82.5 Family history of asthma and other chronic lower respiratory diseases; Z79.899 Other long term (current) drug therapy; Z86.19 Personal history of other infectious and parasitic diseases

== ENCOUNTER 2017-01-28 20:19 | Emergency (ER) | payer OTHER ==
[~2017-01-28] VITALS: Ht 182.8 cm; Wt 93.0 kg
[~2017-01-28 20:19] MED LIST changes: +ACYCLOVIR400 MG PO; +ADDERALL 20 MG20 MG PO; +DOXYCYCLINE100 M3 PO; +ZITHROMAX1 GM PO
[2017-01-28 21:39] LABS: BASO % 0.2 % (0.0-1.0); EOS # 0.1 10*3/uL (0.0-0.4); EOS % 1.8 % (1.0-4.0); HEMATOCRIT 34.9 % (42.0-52.0); HEMOGLOBIN 12.7 g/dl (14.0-18.0); LYMPH # 1.4 10*3/uL (1.3-4.4); LYMPH % 22.2 % (27.0-41.0); MEAN CELL VOLUME 85.5 fl (80.0-94.0); MEAN CORPUSCULAR HGB 31.1 pg (27.0-31.0); MEAN CORPUSCULAR HGB CONC 36.4 g/dl (33.0-37.0); MEAN PLATELET VOLUME 9.6 fl (9.6-12.3); MONO # 0.5 10*3/uL (0.1-1.0); MONO % 7.5 % (3.0-9.0); NEUT # 4.3 10*3/uL (2.3-7.9); PLATELET COUNT AUTOMATED 240 10*3/uL (130-400); RED BLOOD COUNT 4.08 10*6/uL (4.50-5.90); RED CELL DISTRI WIDTH 12.7 % (0-14.5); WHITE BLOOD COUNT 6.3 10*3/uL (4.8-10.8)
[2017-01-28 21:49] VITALS: BP 123/61
[2017-01-28 21:59] LABS: ALBUMIN 3.7 gm/dl (3.1-4.5); ALKALINE PHOSPHATASE 86 U/L (45-117); BUN 12 mg/dl (7-24); CHLORIDE 106 mmol/L (98-107); CREATININE 0.94 mg/dL (0.70-1.30); POTASSIUM 3.6 mmol/L (3.5-5.1); SGOT/AST 24 IU/L (3-35); SGPT/ALT 55 U/L (12-78); SODIUM 138 mmol/L (136-145); TOTAL PROTEIN 8.9 gm/dL (6.4-8.2)
[2017-01-28 22:04] LABS: TROPONIN I < 0.015 ng/ml (<0.045)
[2017-01-28] MEDS ORDERED: VISTARIL25 MG PO (22:25)
[2017-01-31 08:12] LABS: HEPATITIS B SURFACE AG Negative (Negative); HEPATITIS C VIRUS ANTIBODY <0.1 s/co (0.0-0.9)
[2017-01-31 10:03] LABS: HEMATOCRIT 39.9 % (37.5-51.0); HEMOGLOBIN 13.2 g/dL (12.6-17.7); RBC 4.29 x10E6/uL (4.14-5.80); WBC 5.6 x10E3/uL (3.4-10.8)
[2017-01-31 14:05] LABS: ABSOLUTE CD 4 HELPER 190 /uL (359-1519); CD 4 POS LYMPH, % 17.3 % (30.8-58.5)
[2017-02-01 12:10] LABS: CRYPTOCOCCUS ANTIGEN Negative (Negative)
[2017-02-01 14:08] LABS: HIV-1 RNA BY PCR 19410 (.); LOG10 HIV-1 RNA 4.288 (.)
== END 2017-01-28 22:31 | disposition home or self-care (01) ==
LOC: EDSTATUS 20:19 → ED 20:20
PROVIDERS: Nurse Practitioner Family; Specialist
DX: F41.9 Anxiety disorder, unspecified (principal); F17.200 Nicotine dependence, unspecified, uncomplicated

== ENCOUNTER 2017-01-29 05:09 | Inpatient (IN) | payer OTHER ==
[~2017-01-29] VITALS: Ht 208.3 cm; Wt 95.0 kg
--- NOTE | ~2017-01-29 | WRIGHTHP ---
[place], [place] PATIENT HISTORY AND PHYSICAL EXAM [id number] UN[facility] #: [id number] ROOM: 419 DOCTOR: KEMI COBOS MD BIRTHDATE: [birth year] DOS: 01/29/2017 HISTORY OF PRESENT ILLNESS: 1. A 21-year-old gentleman with 2 year history of being HIV positive and now he has AIDS. 2. Previous history of syphilis treated according to the patient. 3. History of attention deficit disorder. 4. History of generalized anxiety disorder. 5. History of cocaine abuse. 6. History of heroin withdrawal. 7. History of herpes simplex type 2. 8. History of seizure after head injury in the past. 9. History of subarachnoid bleed. 10. History of nicotine smoke dependence. The patient presented to Emergency Department with recurrent complaints of chest pains and that he lost consciousness twice. The patient was evaluated in Emergency Department. His CAT scan of the head was normal. The patient was recommended for admission for the management and his second set of cardiac enzymes was normal. Infectious disease specialist and cardiology have been consulted. The patient is symptomatic at present time. He is without chest pain, no nausea, vomiting, no shortness of breath, no GI or urinary symptoms. REVIEW OF SYSTEMS: LUNGS: No increasing shortness of breath or wheezing. GASTROINTESTINAL: No nausea, vomiting, diarrhea, or constipation. CARDIOVASCULAR: Recurrent chest pains, no palpitations. FAMILY HISTORY: Noncontributory. SOCIAL HISTORY: The patient says he has 3 children. Smokes 1 pack of cigarettes a day and takes marijuana. He denies cocaine or any other drug abuse. FAMILY HISTORY: Noncontributory. HOME MEDICATIONS: None. ALLERGIES: No known drug allergies. PHYSICAL EXAMINATION: GENERAL APPEARANCE: The patient is alert and oriented x 3, in no visible distress. VITAL SIGNS: Blood pressure 141/82, heart rate 101 beats per minute, respiratory rate 20 per minute, temperature 98.3 degrees Fahrenheit. HEENT AND NECK: Extraocular movements are intact. Sclerae are anicteric. Oral mucosa is moist and clean. No obvious facial weakness. Neck is supple without any lymphadenopathy. No thyromegaly. No JVD. No carotid arterial bruits. LUNGS: Clear to auscultation. No wheezing. No rhonchi. CARDIOVASCULAR SYSTEM: Heart rate is regular in rate and rhythm. S1 and S2 [place], [place] PATIENT HISTORY AND PHYSICAL EXAM NAME: BRIANNA COELLO UNIT #: [id number] ROOM: [facility] DOCTOR: KEMI COBOS MD BIRTHDATE: [birth year] normally audible. No significant murmur or any other abnormal cardiac sounds. ABDOMEN: Soft, nontender. No obvious organomegaly. Bowel sounds are present. No obvious herniation. EXTREMITIES: Without significant cyanosis or edema. Warm to touch. CENTRAL NERVOUS SYSTEM: Alert and oriented x 3. Cranial nerves II-XII are intact. Speech is normal. The patient is able to move all extremities. Normal muscle strength. Deep tendon reflexes are equal on both sides. Plantars were downgoing. The patient has right facial palsy. LABORATORY DATA: Cardiac enzymes are negative so far. Alcohol level of 109. Tylenol was undetectable. White cell count of 5900, hemoglobin of 13.2. Normal serum electrolytes, RPR nonreactive, herpes simplex virus culture is negative. IMPRESSION: The patient with AIDS with CD4 cell count of less than 200 without treatment, complaining of recurrent chest pains. The patient says he was never suicidal and he does not feel suicidal and patient has been seen by Alissa Torres, psych social work specialist at the hospital. The patient was initially given a pain slip based on information from his mother, which has been discontinued by Emergency Department, Dr. Efrain Gallagher now. The patient is symptomatic. IMPRESSION: 1. The patient with AIDS. I consulted infectious disease specialist who had recommended that the patient should be transferred to a tertiary care center and I am trying to make arrangements so he is sent out. No signs of any toxoplasmosis. CT of the head was normal. 2. Recurrent chest pain with negative cardiac enzymes. So far cardiology had been consulted. 3. History of illegal drug abuse. He is positive for cocaine and marijuana, although he denies using cocaine, salicylates, Tylenol were normal levels. Urine drug screen is positive for marijuana and cocaine. The patient is alert and oriented. 4. Two episodes of loss of consciousness reported at home with elevated alcohol level and cocaine positive. The patient remains in normal sinus rhythm and he has been started on a night monitor. 5. I am contacting tertiary care hospitals to see if he can be transferred out as recommended by infectious disease specialist, so he can get started on treatment. 6. Nicotine smoke dependence. The patient is encouraged to stop smoking cigarettes. He smokes 1 pack of cigarettes a day. [place], [place] PATIENT HISTORY AND PHYSICAL EXAM NAME: BRIANNA COELLO UNIT #: [id number] ROOM: [facility] DOCTOR: KEMI COBOS MD BIRTHDATE: [birth year] KEMI COBOS MD CM:HISPHYS:PATIENT HISTORY AND PHYSICAL EXAMINATION 12 13 KEMI COBOS MD 02/02/17 0829 interface
[~2017-01-29 05:09] MED LIST changes: +VISTARIL25 MG PO
[2017-01-29 05:16] VITALS: BP 141/82
[2017-01-29 05:48] LABS: BASO % 0.3 % (0.0-1.0); EOS # 0.1 10*3/uL (0.0-0.4); HEMATOCRIT 36.6 % (42.0-52.0); HEMOGLOBIN 13.2 g/dl (14.0-18.0); LYMPH # 1.6 10*3/uL (1.3-4.4); LYMPH % 27.6 % (27.0-41.0); MEAN CELL VOLUME 85.3 fl (80.0-94.0); MEAN CORPUSCULAR HGB 30.8 pg (27.0-31.0); MEAN CORPUSCULAR HGB CONC 36.1 g/dl (33.0-37.0); MEAN PLATELET VOLUME 9.2 fl (9.6-12.3); MONO # 0.5 10*3/uL (0.1-1.0); MONO % 7.8 % (3.0-9.0); NEUT # 3.7 10*3/uL (2.3-7.9); PLATELET COUNT AUTOMATED 251 10*3/uL (130-400); RED BLOOD COUNT 4.29 10*6/uL (4.50-5.90); RED CELL DISTRI WIDTH 12.8 % (0-14.5); WHITE BLOOD COUNT 5.9 10*3/uL (4.8-10.8)
[2017-01-29 05:49] LABS: BILIRUBIN NEGATIVE (NEGATIVE); BLOOD NEGATIVE (NEGATIVE); CLARITY CLEAR (CLEAR); COLOR YELLOW (YELLOW); GLUCOSE NEGATIVE (NEGATIVE); KETONE NEGATIVE (NEGATIVE); LEUKO ESTERASE NEGATIVE (NEGATIVE); NITRITE NEGATIVE (NEGATIVE); PH 5.5 (5.0-9.0); SPECIFIC GRAVITY <= 1.005 (1.005-1.030); UROBILINOGEN 0.2 E.U./dl (0.2-1.0)
[2017-01-29 05:57] LABS: BUN 11 mg/dl (7-24); CHLORIDE 107 mmol/L (98-107); CREATININE 1.06 mg/dL (0.70-1.30); POTASSIUM 3.4 mmol/L (3.5-5.1); SODIUM 139 mmol/L (136-145)
[2017-01-29 05:58] LABS: URINE AMPHETAMINES < 1000 (1000ng/ml); URINE BARBITURATES < 200 (200ng/ml); URINE BENZODIAZEPINES < 200 (200ng/ml); URINE CANNABINOIDS (THC) > 50 (50ng/ml); URINE COCAINE > 300 (300ng/ml); URINE METHADONE < 300 (300ng/ml); URINE OPIATES < 300 (300ng/ml)
--- NOTE | 2017-01-29 06:01 | NUR ---
PT TO CT
--- NOTE | 2017-01-29 06:11 | NUR ---
PT REFUSES TO STAY IN HOSPITAL GOWN AND KEEP MONITOR ON PT LEAVES ROOM INSTRUCTED TO STAY IN ROOM
[2017-01-29 06:15] LABS: URINE PHENCYCLIDINE < 25 (25ng/ml)
[2017-01-29 06:17] LABS: ACETAMINOPHEN (TYLENOL) < 2.0 ug/ml (10-30)
--- NOTE | 2017-01-29 06:54 | NUR ---
PT LYING IN ROOM, NO ACUTE DISTRESS AT PRESENT, USING PHONE
[2017-01-29 07:24] VITALS: BP 122/73
--- NOTE | 2017-01-29 07:25 | NUR ---
PT REATING ON CART AMBULATORY TO BATHROOM . GAIT STEADY. PT STATES HE IS FEELING FINE AT THIS TIME. DENNIS NEGRO RN.
--- NOTE | 2017-01-29 07:30 | NUR ---
ASK MD ABOUT DISPOSITION OF PATIENT AND THE MD STATES THE PATIENT WAS SUICIDAL. I DID GO AND ASK HTE PATIENT IF HE FELT LIKE HURTING HIMSELF OR ANY ONE AND HTE PATIENT STATES NO. HE IS HERE BECAUSE HE HAS AIDS AND HE PASSED OUT. I EXPLAINED TO HIM OT WAS TOLD TO THE MD THAT HE POSTED ON FACEBOOK THAT HE WANTED TO KILL HINSELF AND HIS MOTHER WAS CONCERNED FOR HIM. AT THIS TIME THE PATIENT WAS MOVED TO EXAM ROOM 3 . HE BECAME VERY UPSET AND STATES THE HOSPITAL DOES NOTHING FOR HIS PASSING OUT AND HIS DX OF AIDS. STATES HE IS LEAVING. MD MADE AWARE. DENNIS NEGRO RN.
--- NOTE | 2017-01-29 07:46 | NUR ---
REPORT TAKEN FROM PREVIOUS NURSE. PATIENT MOVED TO ROOM 3 FOR SUICIDE PRECAUTIONS. ACCORDING TO PATIENTS MOTHER PATIENT POSTED ON FACEBOOK THAT HE WANTED TO KILL HIMSELF, PATIENT DENIES THESE FEELING AND STATED HE NEVER POSTED ANYTHING OF THE SORT. HE IS VERY FRUSTRATED BECAUSE WE "ARE NOT DOING ANYTHING FOR HIS AIDS AND WHY HE KEEPS PASSING OUT". PATIENT REFUSES TO REMOVE HIS CLOTHING PER POLICY.
--- NOTE | 2017-01-29 08:21 | NUR ---
PATIENT SHOWED THIS RN AND ANOTHER PLUS MD POSTS ON FACEBOOK, WHICH LOOKS LIKE THE SUICIDAL IDEATION AND THOUGHTS WERE A MISUNDERSTANDING.
[2017-01-29 08:28] VITALS: BP 125/69
--- NOTE | 2017-01-29 08:52 | NUR ---
CALLED REPORT TO 4TH FLOOR WAS TOLD SHE WOULD CALL BACK UNABLE TO TAKE REPORT AT THIS TIME
--- NOTE | 2017-01-29 09:20 | NUR ---
A 21, admitted to , under the services of Dr. CHANDRIKA STYLES,KEMI Quan with a diagnosis of SYNCOPY. Chief complaint is PASSED OUT X2 TODAY. Patient arrived via stretcher from ER. Monitor applied. Initial assessment completed. Vital signs taken and recorded. DR. CHANDRIKA STYLES,KEMI Quan notified of admission to the unit. Orders received. See assessment for past medical history, medications and allergies. Patient and/or family oriented to unit. [facility] Clothing/patient valuable form completed. PER THE PATIENT HE ADAMANTLY DENIED EVER THINKING ABOUT SUICIDE. HE SAID THAT THE FACEBOOK POST DOES NOT SAY HE IS TRYING TO KILL HIMSELF AND HE WOULD SHOW ME. SAID HE SHOWED THE ER STAFF & PER THE ER REPORT IT WAS A MISUNDERSTANDING AND THAT HE WAS NOT PINK SLIPPED. LATER A PINK SLIP WAS SENT TO THE FLOOR FROM ER SAYING THAT THE OTHER SAYS HE IS SUICIDAL. THE PATIENT SAID HE DOES NOT WANT TO KILL HIMSELF AND THEN THE NURSE OVER HEARD HIM TELL SOMEONE ON THE PHONE THAT HIS MOTHER IS TELLING PEOPLE THAT HE IS SUICIDAL AND HE LAUGHED SAYING REALLY, LIKE I WOULD EVER DO THAT. WHY WOULD I HAVE COME HERE VOLUNTARILY IF I WAS THINKING ABOUT IT. JOHN MIRANDA
--- NOTE | 2017-01-29 09:45 | NUR ---
DR MANNING CALLED IN AND ASKED ABOUT THE PATIENT BEING TRANSFERRED TO A [facility] LOCATION FOR NEUROLOGY EVALUATION. DISCUSSED ALCOHOL LEVEL & DRUG LEVEL. WILL NOT ARRANGE TRANSFER UNTIL SEEN BY ELISSA TODAY. EQUESTED IT BE DISCUSSED WITH PRIMARY CARE PHYSICIAN.
--- NOTE | 2017-01-29 11:31 | NUR ---
CALL PLACED TO DR GLYNN ABOUT CONSULT.
--- NOTE | 2017-01-29 11:41 | NUR ---
AFTER TALKING WITH DR RENARD MCKEON TO ORDER HOME MEDS REQUESTED BY DR COBOS. HE WILL SEE THE PATIENT IN THE AM.
--- NOTE | 2017-01-29 11:53 | NUR ---
MOVED T O 419 D/T PINK SLIUP IN EFFECT UNTIL SEEN. PATIENT AWARE AND THINKS THIS IS A JOKE BECAUSE HE ONCE AGAIN SAID I NEVER SAID OR THOUGHT I WANTED TO KILL MYSELF OR ANYONE ELSE
--- NOTE | 2017-01-29 13:30 | NUR ---
LONNIE CAZARES HERE, IN TO SEE THE PATIENT.
--- NOTE | 2017-01-29 13:38 | NUR ---
met with client to assess for suicide risk, this client is pleasant, cooperative, alert and oriented x4. he denies to me that he was ever suicidal, he denies that he is presently suicidal, he reports that he does not know who or why someone would say that, he said that his face book actually said "i dont want to " he said referring to having aids now vs HIV, he said he wants to live, we talked about his situation and he said that he baby momma gave him aids and now she does not have it,. he reports that he does not get mental health treatment and does not feel depressed. spoke with client about outpatient options and he said that he thinks that he is ok with that, he said that he uses alcohol and thc, we talked about treatment options and he said he would consider this, gave client resources. this client is not a risk for self harm, i spoke with his nurse, the pink slip that was written in ER should be discontinued, he is not a suicide risk. this client can be dc when he is medically stable.
--- NOTE | 2017-01-29 14:09 | NUR ---
LONNIE CAZARES WAS IN, FEELS PATIENT IS NOT SUICIDAL. PATIENT DOES NOT NEED ANYTHING FROM HER AT THIS TIME.
[2017-01-29 16:00] VITALS: BP 122/80
--- NOTE | 2017-01-29 16:00 | NUR ---
dr dunaway called to report pt having chest pain in epigastric area, constant , nonradiating. see new orders.
--- NOTE | 2017-01-29 16:05 | NUR ---
consult called to dr fan. spoke with dr daniels who is covering . refer to new orders.
--- NOTE | 2017-01-29 17:00 | NUR ---
PRN PRILOSEC AND MAALOX ORDERED AND GIVEN FOR CHEST PAIN/EPIGASTRIC PAIN.
--- NOTE | 2017-01-29 17:54 | NUR ---
DR COBOS HERE TO SEE PATIENT AND SPOKE WITH MARIN HOUSTON SHIFT DIRECTOR AND DR GARCIA REGTANYARDING DISCONTINUING PINK SLIP. PER DR COBOS HE DOES NOT WISH TO GET INTO THE MIDDLE OF THIS ISSUE. SPOKE WITH DR GARCIA WHO REQUEST THAT I DISCONTINUE PINK SLIP ORDER. THIS RN SPOKE WITH MARIN HOUSTON, AND INFORMED HER THAT NO ORDER FOR A PINK SLIP IS FOUND IN [facility]. THIS RN REQUESTED MARIN HOUSTON TO SPEAK WITH DR GARCIA REGUARDING THIS ORDER. MARIN HOUSTON CALLED [facility] AND REQUESTED THAT ACTUAL PINK SLIP BE SENT TO ER.
[2017-01-29 20:00] VITALS: BP 115/65
--- NOTE | 2017-01-29 20:00 | NUR ---
PT ADVISED OF TRANSFER TO [facility]. PT VISITING WITH GRANDMOTHER AT THIS TIME. CONTINUES TO C/O MIDSTERNAL CP 08/27.
--- NOTE | 2017-01-29 21:31 | NUR ---
REPORT CALLED TO NURSE AT [facility].
--- NOTE | 2017-01-29 22:00 | NUR ---
D/C PAPERS REVIEWED AND SIGNED. PT LEAVING FLOOR W/BELONGINS VIA CART W/2 AMBULANCE ATTENDANTS.
== END 2017-01-29 22:00 | disposition short-term general hospital (02) | DRG 313 ==
LOC: ED 05:09 → 4E 08:32 → EDHOLD 08:32 → 4E 08:42
PROVIDERS: Emergency Medicine Emergency Medical Services; Internal Medicine Cardiovascular Disease; ADMIT Internal Medicine
DX: R07.9 Chest pain, unspecified (principal); B20 Human immunodeficiency virus [HIV] disease; F07.81 Postconcussional syndrome; F32.9 Major depressive disorder, single episode, unspecified; F90.9 Attention-deficit hyperactivity disorder, unspecified type; G40.909 Epilepsy, unspecified, not intractable, without status epilepticus; F41.1 Generalized anxiety disorder; F17.210 Nicotine dependence, cigarettes, uncomplicated; F14.10 Cocaine abuse, uncomplicated; F12.10 Cannabis abuse, uncomplicated; F10.10 Alcohol abuse, uncomplicated; Z71.6 Tobacco abuse counseling; Z83.6 Family history of other diseases of the respiratory system; Z90.89 Acquired absence of other organs; Z59.0 Homelessness; Z79.899 Other long term (current) drug therapy

== ENCOUNTER 2017-06-26 13:53 | Emergency (ER) | payer OTHER ==
[~2017-06-26] VITALS: Ht 182.8 cm; Wt 99.8 kg
[~2017-06-26 13:53] MED LIST changes: +COGENTIN0.5 MG PO; +DESCOVY 200-251 EACH PO; +EDURANT PO; +MIXED AMPHETAMI30 M1 PO; +SEROQUEL XR400 MG PO; +TIVICAY50 M1 PO
[2017-06-26 13:59] VITALS: BP 126/73
[2017-06-26 14:32] LABS: BASO % 0.1 % (0.0-1.0); EOS % 0.1 % (1.0-4.0); HEMATOCRIT 33.8 % (42.0-52.0); LYMPH # 1.7 10*3/uL (1.3-4.4); LYMPH % 18.4 % (27.0-41.0); MEAN CELL VOLUME 92.3 fl (80.0-94.0); MEAN CORPUSCULAR HGB 32.8 pg (27.0-31.0); MEAN CORPUSCULAR HGB CONC 35.5 g/dl (33.0-37.0); MEAN PLATELET VOLUME 10.2 fl (9.6-12.3); MONO # 0.7 10*3/uL (0.1-1.0); MONO % 7.3 % (3.0-9.0); NEUT # 6.6 10*3/uL (2.3-7.9); NEUT % 73.4 % (47.0-73.0); PLATELET COUNT AUTOMATED 210 10*3/uL (130-400); RED BLOOD COUNT 3.66 10*6/uL (4.50-5.90); RED CELL DISTRI WIDTH 12.8 % (0-14.5)
[2017-06-26 14:46] LABS: ALBUMIN 3.1 gm/dl (3.1-4.5); ALKALINE PHOSPHATASE 61 U/L (45-117); BUN 12 mg/dl (7-24); CHLORIDE 109 mmol/L (98-107); CREATININE 0.66 mg/dL (0.70-1.30); POTASSIUM 2.9 mmol/L (3.5-5.1); SGOT/AST 33 IU/L (3-35); SGPT/ALT 91 U/L (12-78); SODIUM 143 mmol/L (136-145); TOTAL PROTEIN 7.1 gm/dL (6.4-8.2)
[2017-06-26] MEDS ORDERED: K-TAB20 MEQ PO (14:49)
== END 2017-06-26 15:07 | disposition home or self-care (01) ==
LOC: ED 13:53
PROVIDERS: Nurse Practitioner Family
DX: R10.10 Upper abdominal pain, unspecified (principal); E87.6 Hypokalemia; F17.200 Nicotine dependence, unspecified, uncomplicated; G40.909 Epilepsy, unspecified, not intractable, without status epilepticus; F14.10 Cocaine abuse, uncomplicated; E78.00 Pure hypercholesterolemia, unspecified; F12.10 Cannabis abuse, uncomplicated; F11.10 Opioid abuse, uncomplicated; Z90.89 Acquired absence of other organs; Z79.899 Other long term (current) drug therapy

== ENCOUNTER 2017-06-26 20:48 | Inpatient (IN) | payer OTHER ==
[~2017-06-26] VITALS: Ht 182.8 cm; Wt 99.8 kg
--- NOTE | ~2017-06-26 | WRIGHTHP ---
[place], [place] PATIENT HISTORY AND PHYSICAL EXAM NAME: [id number] UNIT #: [id number] ROOM: 406 DOCTOR: HAZEL SPRING MD BIRTHDATE: [birth year] DOS: HISTORY OF PRESENT ILLNESS: The patient is 22-year-old. The patient has a rather complicated history with multiple hospitalizations. He was last admitted to the hospital just a few days ago for encephalopathy, was agitated, was intubated and was transferred to [facility]. After extubation at [facility], he signed out against medical advice and was admitted. He came back to the emergency room yesterday with complaints of abdominal pain. He was sent home after his first visit. He came back again for the second visit to the ER on the same day with continued abdominal pain. At this time, his LFTs were slightly elevated, so they decided to admit him with the diagnosis of acute cholecystitis. This morning, he is not having any complaints other than some minimal abdominal discomfort. Denies having any fever, any chills, any chest pains or palpitations. PAST MEDICAL HISTORY: 1. HIV positive from IV drug abuse, substance abuse issues with usage of multiple street drugs. 2. History of syphilis. 3. History of herpes simplex. 4. History of seizure disorder. 5. History of subarachnoid bleed. MEDICATIONS: His medications that he is currently on are Seroquel, Cogentin, and Adderall. Also, he takes HIV drugs, he does not know the name of the drugs. PHYSICAL EXAMINATION: GENERAL: He is awake and alert and oriented, slightly sleepy, but does not appear to be in any distress. VITAL SIGNS: Blood pressure is 118/60, pulse of 53, respirations 16, temperature 97.8. LUNGS: Diminished breath sounds, clear. HEART: Regular. ABDOMEN: Soft, nontender. EXTREMITIES: Without any edema. ASSESSMENT AND PLAN: 1. The patient who presents with abdominal pain. CT initially in the emergency room showed possibility of cholecystitis, so the patient has been admitted with IV Flagyl. The patient's LFTs were slightly elevated, so surgical consultation has been obtained as well as a gallbladder ultrasound. 2. Substance abuse issues. The patient has cocaine and pot as well as benzodiazepines in the urine. Slow IV hydration was ordered. 3. Recent hospitalization for encephalopathy following intubation after getting agitated and was placed on multiple medications, which made him quite sedated and resulted in respiratory arrest. The patient seems to be doing well in that regards. If the CT scan of the abdomen and HIDA scan comes back negative, the patient should be able to go home and follow up with his PCP as an outpatient. [place], [place] PATIENT HISTORY AND PHYSICAL EXAM NAME: BRIANNA COELLO UNIT #: [id number] ROOM: 406 DOCTOR: HAZEL SPRING MD BIRTHDATE: [birth year] HAZEL SPRING MD CM:HISPHYS:PATIENT HISTORY AND PHYSICAL EXAMINATION 0908 [id number] HAZEL SPRING MD 06/27/17 1015 interface
[~2017-06-26 20:48] MED LIST changes: +K-TAB20 MEQ PO
[2017-06-26 20:50] VITALS: BP 128/67
[2017-06-26 21:19] LABS: BASO % 0.1 % (0.0-1.0); EOS % 0.4 % (1.0-4.0); HEMATOCRIT 34.3 % (42.0-52.0); HEMOGLOBIN 12.4 g/dl (14.0-18.0); LYMPH % 25.8 % (27.0-41.0); MEAN CORPUSCULAR HGB 33.2 pg (27.0-31.0); MEAN CORPUSCULAR HGB CONC 36.2 g/dl (33.0-37.0); MEAN PLATELET VOLUME 10.3 fl (9.6-12.3); MONO # 0.8 10*3/uL (0.1-1.0); MONO % 10.1 % (3.0-9.0); NEUT % 62.8 % (47.0-73.0); PLATELET COUNT AUTOMATED 238 10*3/uL (130-400); RED BLOOD COUNT 3.73 10*6/uL (4.50-5.90); RED CELL DISTRI WIDTH 12.7 % (0-14.5); WHITE BLOOD COUNT 7.9 10*3/uL (4.8-10.8)
[2017-06-26 21:36] LABS: BILIRUBIN NEGATIVE (NEGATIVE); BLOOD NEGATIVE (NEGATIVE); CLARITY SL CLOUDY (CLEAR); COLOR YELLOW (YELLOW); GLUCOSE NEGATIVE (NEGATIVE); KETONE NEGATIVE (NEGATIVE); LEUKO ESTERASE NEGATIVE (NEGATIVE); NITRITE NEGATIVE (NEGATIVE); PH 7.5 (5.0-9.0); SPECIFIC GRAVITY 1.015 (1.005-1.030)
[2017-06-26 21:44] LABS: URINE AMPHETAMINES < 1000 (1000ng/ml); URINE BARBITURATES > 200 (200ng/ml); URINE BENZODIAZEPINES > 200 (200ng/ml); URINE CANNABINOIDS (THC) > 50 (50ng/ml); URINE COCAINE > 300 (300ng/ml); URINE METHADONE < 300 (300ng/ml); URINE OPIATES < 300 (300ng/ml)
[2017-06-26 21:44] LABS: ALBUMIN 3.2 gm/dl (3.1-4.5); ALKALINE PHOSPHATASE 67 U/L (45-117); BUN 14 mg/dl (7-24); CHLORIDE 109 mmol/L (98-107); CREATININE 0.72 mg/dL (0.70-1.30); LIPASE 149 U/L (73-393); POTASSIUM 3.5 mmol/L (3.5-5.1); SGOT/AST 44 IU/L (3-35); SGPT/ALT 94 U/L (12-78); SODIUM 144 mmol/L (136-145); TOTAL PROTEIN 6.8 gm/dL (6.4-8.2)
[2017-06-26 21:48] LABS: BACTERIA TRACE; WBC 0-2 wbc/hpf (0-5)
[2017-06-26 21:49] LABS: URINE PHENCYCLIDINE < 25 (25ng/ml)
[2017-06-26 23:42] VITALS: BP 114/74
[2017-06-27] VITALS (7 sets, daily range): BP systolic 94–129; BP diastolic 39–84
[2017-06-28] MEDS ORDERED: Motrin,Rufen800 MG PO (20:15)
[2017-06-28] MEDS ORDERED: ZOFRAN ODT4 MG SL (20:15)
== END 2017-06-27 16:25 | disposition home or self-care (01) | DRG 391 ==
LOC: ED 20:48 → EDHOLD 06-27 00:51 → 4E 06-27 01:06
PROVIDERS: Student in an Organized Health Care Education/Training Program
DX: K29.70 Gastritis, unspecified, without bleeding (principal); B20 Human immunodeficiency virus [HIV] disease; F07.81 Postconcussional syndrome; F11.10 Opioid abuse, uncomplicated; F12.10 Cannabis abuse, uncomplicated; F90.9 Attention-deficit hyperactivity disorder, unspecified type; F41.9 Anxiety disorder, unspecified; G40.909 Epilepsy, unspecified, not intractable, without status epilepticus; R94.5 Abnormal results of liver function studies; Z72.0 Tobacco use; Z79.899 Other long term (current) drug therapy; Z87.820 Personal history of traumatic brain injury

== ENCOUNTER 2017-06-27 20:23 | Emergency (ER) | payer OTHER ==
[~2017-06-27] VITALS: Ht 182.8 cm; Wt 95.3 kg
[2017-06-27 20:27] VITALS: BP 131/81
[2017-06-27 21:30] LABS: BASO % 0.3 % (0.0-1.0)
[2017-06-27 21:45] LABS: EOS # 0.1 10*3/uL (0.0-0.4); EOS % 1.8 % (1.0-4.0); HEMATOCRIT 38.7 % (42.0-52.0); HEMOGLOBIN 14.3 g/dl (14.0-18.0); LYMPH # 1.7 10*3/uL (1.3-4.4); LYMPH % 25.7 % (27.0-41.0); MEAN CELL VOLUME 89.6 fl (80.0-94.0); MEAN CORPUSCULAR HGB 33.1 pg (27.0-31.0); MEAN PLATELET VOLUME 10.1 fl (9.6-12.3); MONO # 0.8 10*3/uL (0.1-1.0); MONO % 11.6 % (3.0-9.0); NEUT # 3.8 10*3/uL (2.3-7.9); NEUT % 59.2 % (47.0-73.0); PLATELET COUNT AUTOMATED 241 10*3/uL (130-400); RED BLOOD COUNT 4.32 10*6/uL (4.50-5.90); WHITE BLOOD COUNT 6.5 10*3/uL (4.8-10.8)
[2017-06-27 21:49] LABS: ALBUMIN 3.3 gm/dl (3.1-4.5); ALKALINE PHOSPHATASE 79 U/L (45-117); BUN 10 mg/dl (7-24); CHLORIDE 105 mmol/L (98-107); CREATININE 0.59 mg/dL (0.70-1.30); LIPASE 203 U/L (73-393); POTASSIUM 3.2 mmol/L (3.5-5.1); SGOT/AST 35 IU/L (3-35); SGPT/ALT 95 U/L (12-78); SODIUM 139 mmol/L (136-145); TOTAL PROTEIN 7.4 gm/dL (6.4-8.2)
[2017-06-28] MEDS ORDERED: Motrin,Rufen800 MG PO (20:15)
[2017-06-28] MEDS ORDERED: ZOFRAN ODT4 MG SL (20:15)
== END 2017-06-28 01:24 | disposition left against medical advice (07) ==
LOC: ED 20:23
PROVIDERS: Physician Assistant
DX: R51 Headache (principal); R11.0 Nausea; R42 Dizziness and giddiness; F17.200 Nicotine dependence, unspecified, uncomplicated; Z79.899 Other long term (current) drug therapy

== ENCOUNTER 2017-06-28 17:03 | Emergency (ER) | payer OTHER ==
[~2017-06-28] VITALS: Ht 182.8 cm; Wt 99.8 kg
[2017-06-28 18:56] LABS: ACT PARTIAL THROMBO TIME 26.1 SECONDS (20.8-31.5)
[2017-06-28 18:58] LABS: ALBUMIN 3.2 gm/dl (3.1-4.5); ALKALINE PHOSPHATASE 68 U/L (45-117); BUN 12 mg/dl (7-24); CHLORIDE 107 mmol/L (98-107); CREATININE 0.65 mg/dL (0.70-1.30); LIPASE 143 U/L (73-393); POTASSIUM 3.3 mmol/L (3.5-5.1); SGOT/AST 26 IU/L (3-35); SGPT/ALT 91 U/L (12-78); SODIUM 140 mmol/L (136-145); TOTAL PROTEIN 7.4 gm/dL (6.4-8.2); TROPONIN I < 0.015 ng/ml (<0.045)
[2017-06-28 19:06] LABS: BASO % 0.2 % (0.0-1.0); EOS # 0.1 10*3/uL (0.0-0.4); EOS % 1.2 % (1.0-4.0); HEMATOCRIT 40.9 % (42.0-52.0); HEMOGLOBIN 15.2 g/dl (14.0-18.0); LYMPH # 1.5 10*3/uL (1.3-4.4); LYMPH % 18.3 % (27.0-41.0); MEAN CELL VOLUME 88.3 fl (80.0-94.0); MEAN CORPUSCULAR HGB 32.8 pg (27.0-31.0); MEAN PLATELET VOLUME 10.5 fl (9.6-12.3); MONO # 0.8 10*3/uL (0.1-1.0); MONO % 9.1 % (3.0-9.0); NEUT # 5.7 10*3/uL (2.3-7.9); NEUT % 69.9 % (47.0-73.0); PLATELET COUNT AUTOMATED 231 10*3/uL (130-400); RED BLOOD COUNT 4.63 10*6/uL (4.50-5.90); RED CELL DISTRI WIDTH 12.1 % (0-14.5); WHITE BLOOD COUNT 8.2 10*3/uL (4.8-10.8)
[2017-06-28 19:07] LABS: MEAN CORPUSCULAR HGB CONC 37.2 g/dl (33.0-37.0)
[2017-06-28] MEDS ORDERED: ZOFRAN ODT4 MG SL (20:15)
[2017-06-28] MEDS ORDERED: Motrin,Rufen800 MG PO (20:15)
[2017-06-28 20:38] VITALS: BP 115/89
== END 2017-06-28 20:39 | disposition home or self-care (01) ==
LOC: ED 17:03
PROVIDERS: Emergency Medicine
DX: G43.909 Migraine, unspecified, not intractable, without status migrainosus (principal); F17.200 Nicotine dependence, unspecified, uncomplicated; F12.10 Cannabis abuse, uncomplicated; E78.00 Pure hypercholesterolemia, unspecified; G40.909 Epilepsy, unspecified, not intractable, without status epilepticus; Z79.899 Other long term (current) drug therapy; Z90.49 Acquired absence of other specified parts of digestive tract

== ENCOUNTER 2017-07-21 10:16 | Emergency (ER) | payer OTHER ==
[~2017-07-21] VITALS: Ht 182.8 cm; Wt 95.3 kg
[2017-07-21 10:19] VITALS: BP 127/86
[2017-07-21 12:31] LABS: BASO % 0.1 % (0.0-1.0); EOS # 0.3 10*3/uL (0.0-0.4); EOS % 3.9 % (1.0-4.0); HEMATOCRIT 34.2 % (42.0-52.0); HEMOGLOBIN 12.4 g/dl (14.0-18.0); LYMPH # 1.2 10*3/uL (1.3-4.4); LYMPH % 17.9 % (27.0-41.0); MEAN CELL VOLUME 90.2 fl (80.0-94.0); MEAN CORPUSCULAR HGB 32.7 pg (27.0-31.0); MEAN CORPUSCULAR HGB CONC 36.3 g/dl (33.0-37.0); MEAN PLATELET VOLUME 9.2 fl (9.6-12.3); MONO # 0.8 10*3/uL (0.1-1.0); MONO % 11.1 % (3.0-9.0); NEUT # 4.6 10*3/uL (2.3-7.9); NEUT % 66.7 % (47.0-73.0); PLATELET COUNT AUTOMATED 226 10*3/uL (130-400); RED BLOOD COUNT 3.79 10*6/uL (4.50-5.90); WHITE BLOOD COUNT 6.9 10*3/uL (4.8-10.8)
[2017-07-21 12:34] LABS: BILIRUBIN NEGATIVE (NEGATIVE); BLOOD NEGATIVE (NEGATIVE); CLARITY CLEAR (CLEAR); COLOR YELLOW (YELLOW); GLUCOSE NEGATIVE (NEGATIVE); KETONE NEGATIVE (NEGATIVE); LEUKO ESTERASE NEGATIVE (NEGATIVE); NITRITE NEGATIVE (NEGATIVE); SPECIFIC GRAVITY <= 1.005 (1.005-1.030); UROBILINOGEN 0.2 E.U./dl (0.2-1.0)
[2017-07-21 12:46] LABS: ACT PARTIAL THROMBO TIME 29.2 SECONDS (20.8-31.5)
[2017-07-21 12:51] LABS: ALBUMIN 3.6 gm/dl (3.1-4.5); ALKALINE PHOSPHATASE 75 U/L (45-117); BUN 4 mg/dl (7-24); CHLORIDE 105 mmol/L (98-107); CREATININE 0.87 mg/dL (0.70-1.30); SGOT/AST 46 IU/L (3-35); SGPT/ALT 67 U/L (12-78); SODIUM 140 mmol/L (136-145); TOTAL PROTEIN 7.4 gm/dL (6.4-8.2)
[2017-07-21 12:53] LABS: ETHYL ALCOHOL < 3.0 mg/dl (<3); TROPONIN I < 0.015 ng/ml (<0.045)
[2017-07-21 12:57] LABS: THYROID STIM HORMONE (HS) 0.888 uIU/ml (0.358-4.75)
[2017-07-21 12:58] LABS: ACETAMINOPHEN (TYLENOL) < 2.0 ug/ml (10-30)
[2017-07-21 12:58] LABS: URINE AMPHETAMINES < 1000 (1000ng/ml); URINE BARBITURATES < 200 (200ng/ml); URINE BENZODIAZEPINES < 200 (200ng/ml); URINE CANNABINOIDS (THC) < 50 (50ng/ml); URINE COCAINE > 300 (300ng/ml); URINE METHADONE < 300 (300ng/ml); URINE OPIATES < 300 (300ng/ml); URINE PHENCYCLIDINE < 25 (25ng/ml)
[2017-07-21 13:04] LABS: BACTERIA TRACE; RBC 0-2 rbc/hpf (0-2); WBC 0-2 wbc/hpf (0-5)
== END 2017-07-21 14:13 | disposition home or self-care (01) ==
LOC: ED 10:16
PROVIDERS: Internal Medicine
DX: F32.2 Major depressive disorder, single episode, severe without psychotic features (principal); F14.10 Cocaine abuse, uncomplicated; F17.200 Nicotine dependence, unspecified, uncomplicated; F90.9 Attention-deficit hyperactivity disorder, unspecified type; F41.9 Anxiety disorder, unspecified; F15.10 Other stimulant abuse, uncomplicated; F12.10 Cannabis abuse, uncomplicated; G43.909 Migraine, unspecified, not intractable, without status migrainosus; F11.10 Opioid abuse, uncomplicated; G40.909 Epilepsy, unspecified, not intractable, without status epilepticus; Z90.89 Acquired absence of other organs; Z79.899 Other long term (current) drug therapy

== ENCOUNTER 2017-07-31 15:44 | Inpatient (IN) | payer OTHER ==
[~2017-07-31] VITALS: Ht 182.8 cm; Wt 95.3 kg
[2017-07-31 15:50] VITALS: BP 124/77
[2017-07-31 16:15] LABS: BILIRUBIN NEGATIVE (NEGATIVE); BLOOD NEGATIVE (NEGATIVE); CLARITY CLEAR (CLEAR); COLOR YELLOW (YELLOW); GLUCOSE NEGATIVE (NEGATIVE); KETONE NEGATIVE (NEGATIVE); LEUKO ESTERASE NEGATIVE (NEGATIVE); NITRITE NEGATIVE (NEGATIVE); PH 7.5 (5.0-9.0); UROBILINOGEN 0.2 E.U./dl (0.2-1.0)
[2017-07-31 16:20] LABS: BACTERIA TRACE; EPITHELIAL CELLS 0-2; RBC 0-2 rbc/hpf (0-2); WBC 0-2 wbc/hpf (0-5)
[2017-07-31 16:23] LABS: URINE AMPHETAMINES < 1000 (1000ng/ml); URINE BARBITURATES < 200 (200ng/ml); URINE BENZODIAZEPINES > 200 (200ng/ml); URINE CANNABINOIDS (THC) > 50 (50ng/ml); URINE COCAINE > 300 (300ng/ml); URINE METHADONE < 300 (300ng/ml); URINE OPIATES < 300 (300ng/ml)
[2017-07-31 16:29] LABS: URINE PHENCYCLIDINE < 25 (25ng/ml)
[2017-07-31 16:50] VITALS: BP 127/88
[2017-07-31 18:01] LABS: BASO % 0.6 % (0.0-1.0); EOS # 0.2 10*3/uL (0.0-0.4); EOS % 2.3 % (1.0-4.0); HEMATOCRIT 37.8 % (42.0-52.0); HEMOGLOBIN 13.4 g/dl (14.0-18.0); LYMPH # 1.8 10*3/uL (1.3-4.4); LYMPH % 24.9 % (27.0-41.0); MEAN CORPUSCULAR HGB 32.6 pg (27.0-31.0); MEAN CORPUSCULAR HGB CONC 35.4 g/dl (33.0-37.0); MEAN PLATELET VOLUME 9.2 fl (9.6-12.3); MONO # 0.6 10*3/uL (0.1-1.0); NEUT # 4.5 10*3/uL (2.3-7.9); NEUT % 63.9 % (47.0-73.0); PLATELET COUNT AUTOMATED 311 10*3/uL (130-400); RED BLOOD COUNT 4.11 10*6/uL (4.50-5.90); RED CELL DISTRI WIDTH 12.3 % (0-14.5)
[2017-07-31 18:24] VITALS: BP 121/70
[2017-07-31 18:33] LABS: ALBUMIN 3.6 gm/dl (3.1-4.5); ALKALINE PHOSPHATASE 76 U/L (45-117); BUN 13 mg/dl (7-24); CREATININE 0.78 mg/dL (0.70-1.30); SGOT/AST 44 IU/L (3-35); SGPT/ALT 81 U/L (12-78); TOTAL PROTEIN 7.6 gm/dL (6.4-8.2)
[2017-07-31 18:34] LABS: ACETAMINOPHEN (TYLENOL) < 2.0 ug/ml (10-30); ETHYL ALCOHOL < 3.0 mg/dl (<3)
[2017-07-31 18:36] LABS: CHLORIDE 109 mmol/L (98-107); POTASSIUM 3.7 mmol/L (3.5-5.1); SODIUM 140 mmol/L (136-145)
[2017-07-31 20:00] VITALS: BP 104/62
[2017-08-01] VITALS: BP 109/59
[2017-08-01 08:00] VITALS: BP 116/66
[2017-08-01 12:00] VITALS: BP 103/60
[2017-08-01 16:00] VITALS: BP 114/68
[2017-08-01 20:00] VITALS: BP 118/68
[2017-08-02] VITALS: BP 110/50
[2017-08-02 08:00] VITALS: BP 94/57
[2017-08-02 12:00] VITALS: BP 96/60
[2017-08-02 16:00] VITALS: BP 119/69
[2017-08-02 20:00] VITALS: BP 121/64
[2017-08-03] VITALS: BP 140/89
[2017-08-03 07:08] LABS: CREATININE 0.75 mg/dL (0.70-1.30)
[2017-08-03 07:25] LABS: BASO % 0.8 % (0.0-1.0); EOS # 0.3 10*3/uL (0.0-0.4); EOS % 5.8 % (1.0-4.0); HEMATOCRIT 38.9 % (42.0-52.0); HEMOGLOBIN 13.7 g/dl (14.0-18.0); LYMPH # 1.5 10*3/uL (1.3-4.4); LYMPH % 28.7 % (27.0-41.0); MEAN CELL VOLUME 91.1 fl (80.0-94.0); MEAN CORPUSCULAR HGB 32.1 pg (27.0-31.0); MEAN CORPUSCULAR HGB CONC 35.2 g/dl (33.0-37.0); MEAN PLATELET VOLUME 9.5 fl (9.6-12.3); MONO # 0.6 10*3/uL (0.1-1.0); MONO % 10.6 % (3.0-9.0); NEUT # 2.8 10*3/uL (2.3-7.9); NEUT % 53.1 % (47.0-73.0); PLATELET COUNT AUTOMATED 280 10*3/uL (130-400); RED BLOOD COUNT 4.27 10*6/uL (4.50-5.90); RED CELL DISTRI WIDTH 12.5 % (0-14.5); WHITE BLOOD COUNT 5.2 10*3/uL (4.8-10.8)
[2017-08-03 08:00] VITALS: BP 94/56
== END 2017-08-03 11:13 | disposition home or self-care (01) | DRG 896 ==
LOC: ED 15:44 → EDHOLD 16:11 → 4E 16:11
PROVIDERS: Internal Medicine; Nurse Practitioner Family
DX: F11.23 Opioid dependence with withdrawal (principal); B20 Human immunodeficiency virus [HIV] disease; F12.10 Cannabis abuse, uncomplicated; F14.10 Cocaine abuse, uncomplicated; D64.9 Anemia, unspecified; R74.0 Nonspecific elevation of levels of transaminase and lactic acid dehydrogenase [LDH]; F07.81 Postconcussional syndrome; G40.909 Epilepsy, unspecified, not intractable, without status epilepticus; R73.9 Hyperglycemia, unspecified; F19.10 Other psychoactive substance abuse, uncomplicated; F90.9 Attention-deficit hyperactivity disorder, unspecified type; F41.9 Anxiety disorder, unspecified; F32.9 Major depressive disorder, single episode, unspecified; A74.9 Chlamydial infection, unspecified; Z71.6 Tobacco abuse counseling; Z72.0 Tobacco use; Z87.820 Personal history of traumatic brain injury; Z82.5 Family history of asthma and other chronic lower respiratory diseases; Z79.899 Other long term (current) drug therapy

== ENCOUNTER 2018-09-19 16:31 | Emergency (ER) | payer OTHER ==
[~2018-09-19] VITALS: Ht 180.3 cm; Wt 104.3 kg
[~2018-09-19 16:31] MED LIST changes: +AMOXICILLIN500 M2 PO; +BIKTARVY 50-201 EACH PO; +DICYCLOMINE HCL20 MG PO; +METHOCARBAMOL750 M1 PO; +MOTRIN 600 MG E4 TAB PO
[2018-09-19 17:38] LABS: BASO # 0.1 10*3/uL (0.0-0.1); BASO % 0.5 % (0.0-1.0); EOS # 0.2 10*3/uL (0.0-0.4); EOS % 2.1 % (1.0-4.0); HEMATOCRIT 41.2 % (42.0-52.0); HEMOGLOBIN 14.8 g/dl (14.0-18.0); LYMPH # 1.8 10*3/uL (1.3-4.4); LYMPH % 15.3 % (27.0-41.0); MEAN CELL VOLUME 91.2 fl (80.0-94.0); MEAN CORPUSCULAR HGB 32.7 pg (27.0-31.0); MEAN CORPUSCULAR HGB CONC 35.9 g/dl (33.0-37.0); MEAN PLATELET VOLUME 9.5 fl (9.6-12.3); MONO # 1.1 10*3/uL (0.1-1.0); MONO % 9.4 % (3.0-9.0); NEUT # 8.4 10*3/uL (2.3-7.9); NEUT % 72.5 % (47.0-73.0); PLATELET COUNT AUTOMATED 322 10*3/uL (130-400); RED BLOOD COUNT 4.52 10*6/uL (4.50-5.90); RED CELL DISTRI WIDTH 11.9 % (0-14.5); WHITE BLOOD COUNT 11.5 10*3/uL (4.8-10.8)
[2018-09-19 17:52] LABS: ALBUMIN 4.1 gm/dl (3.1-4.5); ALKALINE PHOSPHATASE 82 U/L (45-117); BUN 24 mg/dl (7-24); CHLORIDE 103 mmol/L (98-107); CREATININE 1.36 mg/dL (0.70-1.30); POTASSIUM 2.8 mmol/L (3.5-5.1); SGOT/AST 34 IU/L (3-35); SGPT/ALT 40 U/L (12-78); SODIUM 140 mmol/L (136-145); TOTAL PROTEIN 8.3 gm/dL (6.4-8.2)
[2018-09-19 17:53] LABS: ETHYL ALCOHOL < 3.0 mg/dl (<3)
[2018-09-20 01:30] LABS: URINE AMPHETAMINES > 1000 (1000ng/ml); URINE BARBITURATES < 200 (200ng/ml); URINE BENZODIAZEPINES < 200 (200ng/ml); URINE CANNABINOIDS (THC) > 50 (50ng/ml); URINE COCAINE > 300 (300ng/ml); URINE METHADONE < 300 (300ng/ml); URINE OPIATES > 300 (300ng/ml)
[2018-09-20 01:32] LABS: URINE PHENCYCLIDINE < 25 (25ng/ml)
[2018-09-20 05:16] VITALS: BP 106/55
== END 2018-09-20 09:26 | disposition home or self-care (01) ==
LOC: ED 16:31
PROVIDERS: Emergency Medicine
DX: E87.6 Hypokalemia (principal); R11.10 Vomiting, unspecified; R06.02 Shortness of breath; F19.10 Other psychoactive substance abuse, uncomplicated; F14.10 Cocaine abuse, uncomplicated; F12.10 Cannabis abuse, uncomplicated; F11.10 Opioid abuse, uncomplicated; F17.200 Nicotine dependence, unspecified, uncomplicated; Z79.899 Other long term (current) drug therapy

== ENCOUNTER 2018-10-17 11:24 | Inpatient (IN) | payer OTHER ==
[~2018-10-17] VITALS: Ht 180.3 cm; Wt 93.4 kg
--- NOTE | ~2018-10-17 | EKG ---
[place], [place] ELECTROCARDIOGRAM REPORT NAME: BRIANNA COELLO UNIT #: [id number] ROOM: 415 DOCTOR: TWYLA DRAFT REPORT BIRTHDATE: [birth year] [facility] Test Date: 2018-10-17 Test Time: 18:06:44 Pat Name: BRIANNA COELLO Department: Room: 415 2 Gender: M Pulp Machine Operator: : 1995 Requested By: JANAK RUSH Order Number: [id number] Reading MD: Cathleen Newberry MD Measurements Intervals Warren Rate: 61 P: 6 SC: 161 QRS: 64 QRSD: 92 T: 46 QT: 422 QTc: 425 Interpretive Statements Sinus rhythm RSR' in V1 or V2, probably normal variant Compared to ECG 09/11/2018 18:08:51 RSR' in V1 or V2 now present Electronically Signed On 10-19-2018 11:25:49 PDT by Cathleen Newberry MD CM:EKGRPT:ELECTROCARDIOGRAM REPORT [id number] JANAK WEEKSANY DRAFT REPORT JANAK RUSH
[2018-10-17] MEDS ORDERED: SEROQUEL XR200 MG PO (11:49)
[2018-10-17 12:00] VITALS: BP 105/57
--- NOTE | 2018-10-17 12:00 | NUR ---
23 year old MALE admitted to room # 415-2 for stabilization. Reports an addiction to IV HEROIN, CRYSTAL METH, COCAIN last used 12 hours prior to admission. Compliant with admission procedure. Patient denies any anxiety, but is unable to sit still, taps toes to floor continuously, looks about room, unable to focus eyes on nurse during interview. See assessment forms for additional information about patient status.
[2018-10-17 13:02] LABS: BASO % 0.5 % (0.0-1.0); EOS # 0.3 10*3/uL (0.0-0.4); EOS % 3.9 % (1.0-4.0); HEMATOCRIT 32.9 % (42.0-52.0); HEMOGLOBIN 11.5 g/dl (14.0-18.0); LYMPH # 2.3 10*3/uL (1.3-4.4); LYMPH % 29.8 % (27.0-41.0); MEAN CELL VOLUME 92.4 fl (80.0-94.0); MEAN CORPUSCULAR HGB 32.3 pg (27.0-31.0); MEAN PLATELET VOLUME 10.2 fl (9.6-12.3); MONO # 0.8 10*3/uL (0.1-1.0); MONO % 10.6 % (3.0-9.0); NEUT # 4.3 10*3/uL (2.3-7.9); NEUT % 54.9 % (47.0-73.0); PLATELET COUNT AUTOMATED 252 10*3/uL (130-400); RED BLOOD COUNT 3.56 10*6/uL (4.50-5.90); RED CELL DISTRI WIDTH 12.8 % (0-14.5); WHITE BLOOD COUNT 7.8 10*3/uL (4.8-10.8)
[2018-10-17 13:20] LABS: ALKALINE PHOSPHATASE 64 U/L (45-117); BUN 11 mg/dl (7-24); CHLORIDE 104 mmol/L (98-107); CREATININE 0.79 mg/dL (0.70-1.30); SGOT/AST 23 IU/L (3-35); SGPT/ALT 30 U/L (12-78); SODIUM 137 mmol/L (136-145); TOTAL PROTEIN 6.4 gm/dL (6.4-8.2)
[2018-10-17 13:24] LABS: ETHYL ALCOHOL < 3.0 mg/dl (<3)
--- NOTE | 2018-10-17 13:36 | NUR ---
Patient meets New Vision Criteria. CINA=17. Patient wants to go to an inpatient after discharge. We are currently looking for somewhere for the patient to go. [facility]
[2018-10-17 16:00] VITALS: BP 110/55
[2018-10-17 16:35] LABS: BILIRUBIN NEGATIVE (NEGATIVE); BLOOD NEGATIVE (NEGATIVE); CLARITY CLEAR (CLEAR); COLOR YELLOW (YELLOW); GLUCOSE NEGATIVE (NEGATIVE); KETONE NEGATIVE (NEGATIVE); LEUKO ESTERASE NEGATIVE (NEGATIVE); NITRITE NEGATIVE (NEGATIVE); SPECIFIC GRAVITY >= 1.030 (1.005-1.030)
[2018-10-17 16:48] LABS: URINE AMPHETAMINES > 1000 (1000ng/ml); URINE BARBITURATES < 200 (200ng/ml); URINE BENZODIAZEPINES < 200 (200ng/ml); URINE CANNABINOIDS (THC) > 50 (50ng/ml); URINE COCAINE > 300 (300ng/ml); URINE METHADONE < 300 (300ng/ml); URINE OPIATES > 300 (300ng/ml); URINE PHENCYCLIDINE < 25 (25ng/ml)
[2018-10-17 17:06] LABS: EPITHELIAL CELLS 0-2; MUCOUS 2+
[2018-10-17 20:00] VITALS: BP 114/58
--- NOTE | 2018-10-17 23:18 | NUR ---
FEMALE VISITOR SEEN GOING INTO PATIENT'S ROOM. SHE STATED SHE HAD TO GIVE HIM HIS MEDS. STOPPED HER ON THE WAY OUT AND TOLD HER HE IS NOT ALLOWED TO HAVE MEDS FROM HOME AND SHE SAID THEY ARE HIS LIFE SUSTAINING MEDS AND WE DON'T HAVE THEM HERE. WENT INTO PATIENT'S ROOM AND TOLD PATIENT I NEEDED THE MEDS SHE JUST GAVE HIM AND HE SAID THEY ARE FOR HIS HIV AND WE DON'T HAVE THEM HERE. I TOLD HIM I HAD TO SEND THEM TO PHARMACY TO BE RELABELED AND THEY WOULD SEND THEM BACK. HE SAID HE WAS GOING TO TAKE ONE OUT FOR IN THE MORNING AND I TOLD HIM THEY WOULD GIVE IT TO HIM AND THE MORNING AND HE HANDED OVER 1 BOTTLE OF PILLS. FEMALE VISITOR SAID SHE GAVE HIM 2 BOTTLES OF SEROQUEL. PILLS HANDED OVER WERE NOT SEROQUEL AND HE SAID IT WAS THE ONLY BOTTLE SHE GAVE HIM. SENDING BOTTLE OF PILLS TO PHARMACY. [facility] WORKERS MARIN NOTIFIED OF INCIDENT.
[2018-10-18] VITALS: BP 94/50
[2018-10-18 08:00] VITALS: BP 110/49
--- NOTE | 2018-10-18 09:30 | NUR ---
PATIENT DROWSY AT THE TIME OF ASSESSMENT.LUNGS CLEAR, DENIES SOB, NO EDEMA NOTED. ABD SOFT & NONTENDER, BSX4. PT ENCOURAGED TO ASK FOR PRN MEDS, DENIES NEEDS AT THIS TIME. HOME MED OBTAINED FROM PHARMACY AND GIVEN. CALL LIGHT IN REACH.
[2018-10-18 12:00] VITALS: BP 98/49
--- NOTE | 2018-10-18 14:56 | NUR ---
[place] STAFF PROVIDED PATIENT WITH REFERRAL OPTIONS. PATIENT IS LOOKING FOR RESIDENTIAL TREATMENT. [facility] HAS AN OPEN BED. [place] STAFF SENT PATIENT'S ASSESSMENT. [place] STAFF WILL FOLLOW BACK UP WITH [facility]. ALEXI LEONARD B.A. RETAIL STOCKER
[2018-10-18 16:00] VITALS: BP 110/61
[2018-10-18 20:00] VITALS: BP 108/49
[2018-10-19] VITALS: BP 108/61
[2018-10-19 08:00] VITALS: BP 126/74
--- NOTE | 2018-10-19 08:30 | NUR ---
medcated with prn motrin for c/o headache.
--- NOTE | 2018-10-19 09:20 | NUR ---
[facility] IN [place] WILL ACCEPT PATIENT. THEY HAVE A OPEN BED FOR HIM ON MONDAY,October. [place] STAFF WILL FOLLOW UP WITH PATIENT CONCERNING TRANSPORTATION. ALEXI LEONARD B.A. INTAKE COORDIANTOR
--- NOTE | 2018-10-19 10:28 | NUR ---
MEDICATED WITH PRN BENTYL PER ORDER.
--- NOTE | 2018-10-19 12:58 | NUR ---
PATIENT HAS BEEN ACCEPTED TO [facility] IN [place]. THEY HAVE A BED AVAILABLE FOR HIM FOR MONDAY, October UPON DISCHARGE. [place] STAFF WILL SET UP TRANSPORTATION FOR HIM THROUGH HIS INSURANCE. PATIENT AGREES AND UNDERSTANDS HIS AFTERCARE PLAN. ALEXI LEONARD B.A. GUEST RELATIONS EXECUTIVE
[2018-10-19 16:00] VITALS: BP 100/53
--- NOTE | 2018-10-19 19:29 | NUR ---
PATIENT RESTING IN BED. DENIES NEEDS OR PRN MEDICATIONS AT THIS TIME. REMINDED TO NOT LEAVE THE FLOOR. VERBALIZED UNDERSTANDING. BED IN LOWEST POSITION, CALL LIGHT IN REACH
[2018-10-19 20:00] VITALS: BP 117/58
--- NOTE | 2018-10-19 22:11 | NUR ---
MEDICATED WITH PRN MOTRIN FOR GENERALIZED PAIN RATED 5/10 ON A 0/10 PAIN SCALE. WILL MONITOR
[2018-10-20] VITALS: BP 123/64
--- NOTE | 2018-10-20 00:17 | NUR ---
PATIENT RESTING IN BED WITH EYES CLOSED. RESPS EASY AND REGULAR. MEDICATION SEEMS EFFECTIVE
--- NOTE | 2018-10-20 01:47 | NUR ---
24 HR chart check completed.
--- NOTE | 2018-10-20 07:30 | NUR ---
PT ASLEEP IN BED AT THIS TIME. HE REQUESTED NOT TO BE AWAKEN FOR BEDSIDE REPORT PER EMS HELICOPTER PILOT RN. RESPIRATIONS EASY AND NONLABORED. NO OBVOIOUS SIGNS OF PAIN OR DISCOMFORT. BED LOCKED AND IN THE LOWEST POSITION, CALL LIGHT WITHIN REACH. WILL CONTINUE TO MONITOR.
[2018-10-20 08:00] VITALS: BP 110/58
--- NOTE | 2018-10-20 14:48 | NUR ---
DR. RUSH NOTIFIED PT WANTS TO LEAVE AMA
--- NOTE | 2018-10-20 15:00 | NUR ---
PT LEAVING AMA AT THIS TIME. DISCUSSED THAT HE WAS LEAVING AGAINST MEDICAL ADVICE. PT STATES "I DON'T CARE, I AM JUST GETTING OUT OF HERE". HE STATES THAT HE STILL PLANS TO GO TO [facility] ON MONDAY PLANNED. HE WAS PROVIDED WITH THE PHONE NUMBER PER HIS REQUEST. PT HAS NO IV ACCESS. HOME MED FROM [facility] RETURNED TO PT. PT AMBULATED OFF FLOOR.
== END 2018-10-20 15:00 | disposition left against medical advice (07) | DRG 894 ==
LOC: 4E 11:24
PROVIDERS: ADMIT Internal Medicine
DX: F11.23 Opioid dependence with withdrawal (principal); K92.0 Hematemesis; E44.0 Moderate protein-calorie malnutrition; B20 Human immunodeficiency virus [HIV] disease; G25.81 Restless legs syndrome; B19.20 Unspecified viral hepatitis C without hepatic coma; E87.6 Hypokalemia; Z53.29 Procedure and treatment not carried out because of patient's decision for other reasons; Z53.21 Procedure and treatment not carried out due to patient leaving prior to being seen by health care provider; F90.9 Attention-deficit hyperactivity disorder, unspecified type; G43.709 Chronic migraine without aura, not intractable, without status migrainosus; D64.9 Anemia, unspecified; F17.210 Nicotine dependence, cigarettes, uncomplicated; F41.9 Anxiety disorder, unspecified; Z79.899 Other long term (current) drug therapy; Z68.28 Body mass index [BMI] 28.0-28.9, adult

== ENCOUNTER 2018-12-15 11:40 | Emergency (ER) | payer OTHER ==
[~2018-12-15] VITALS: Ht 180.3 cm; Wt 88.5 kg
[~2018-12-15 11:40] MED LIST changes: +SEROQUEL XR200 MG PO
[2018-12-15 11:42] VITALS: BP 115/69
[2018-12-15 12:00] LABS: BILIRUBIN NEGATIVE (NEGATIVE); BLOOD NEGATIVE (NEGATIVE); CLARITY SL CLOUDY (CLEAR); COLOR YELLOW (YELLOW); GLUCOSE NEGATIVE (NEGATIVE); KETONE NEGATIVE (NEGATIVE); LEUKO ESTERASE NEGATIVE (NEGATIVE); NITRITE NEGATIVE (NEGATIVE); PH 6.5 (5.0-9.0)
[2018-12-15 12:07] LABS: URINE AMPHETAMINES > 1000 (1000ng/ml); URINE BARBITURATES < 200 (200ng/ml); URINE BENZODIAZEPINES > 200 (200ng/ml); URINE CANNABINOIDS (THC) > 50 (50ng/ml); URINE COCAINE > 300 (300ng/ml); URINE METHADONE < 300 (300ng/ml); URINE OPIATES > 300 (300ng/ml)
[2018-12-15 12:08] LABS: MUCOUS 1+
[2018-12-15 12:08] LABS: URINE PHENCYCLIDINE < 25 (25ng/ml)
== END 2018-12-15 12:32 | disposition left against medical advice (07) ==
LOC: ED 11:40
PROVIDERS: Emergency Medicine
DX: T73.0XXA Starvation, initial encounter (principal); R45.83 Excessive crying of child, adolescent or adult; R63.1 Polydipsia; F17.200 Nicotine dependence, unspecified, uncomplicated; Z59.0 Homelessness; Z79.899 Other long term (current) drug therapy; X58.XXXA Exposure to other specified factors, initial encounter

== ENCOUNTER 2019-03-24 16:21 | Inpatient (IN) | payer OTHER ==
[2019-03-24] VITALS (10 sets, daily range): BP systolic 88–138; BP diastolic 32–99
[~2019-03-24] VITALS: Ht 185.4 cm; Wt 93.9 kg
[2019-03-24 16:44] LABS: BASO % 0.3 % (0.0-1.0); EOS # 0.5 10*3/uL (0.0-0.4); EOS % 3.4 % (1.0-4.0); HEMATOCRIT 41.5 % (42.0-52.0); HEMOGLOBIN 14.6 g/dl (14.0-18.0); LYMPH # 2.6 10*3/uL (1.3-4.4); LYMPH % 19.1 % (27.0-41.0); MEAN CELL VOLUME 89.1 fl (80.0-94.0); MEAN CORPUSCULAR HGB 31.3 pg (27.0-31.0); MEAN CORPUSCULAR HGB CONC 35.2 g/dl (33.0-37.0); MEAN PLATELET VOLUME 9.4 fl (9.6-12.3); MONO # 1.5 10*3/uL (0.1-1.0); PLATELET COUNT AUTOMATED 347 10*3/uL (130-400); RED BLOOD COUNT 4.66 10*6/uL (4.50-5.90); RED CELL DISTRI WIDTH 12.9 % (0-14.5); WHITE BLOOD COUNT 13.7 10*3/uL (4.8-10.8)
[2019-03-24 16:59] LABS: ACT PARTIAL THROMBO TIME 29.2 SECONDS (20.0-32.1)
[2019-03-24 17:19] LABS: ALBUMIN 4.7 gm/dl (3.1-4.5); ALKALINE PHOSPHATASE 98 U/L (45-117); BUN 42 mg/dl (7-24); CHLORIDE 102 mmol/L (98-107); CREATININE 2.76 mg/dL (0.70-1.30); POTASSIUM 3.7 mmol/L (3.5-5.1); SGOT/AST 78 IU/L (3-35); SGPT/ALT 84 U/L (12-78); SODIUM 138 mmol/L (136-145); TOTAL PROTEIN 9.4 gm/dL (6.4-8.2)
[2019-03-24 17:36] LABS: CPK 1566 U/L (39-308); ETHYL ALCOHOL < 3.0 mg/dl (<3)
[2019-03-24 19:10] LABS: ABG BASE EXCESS -1.1 mmol/L (-2.0-2.0); ARTERIAL BLOOD GAS PH 7.332 (7.35-7.45)
[2019-03-24 19:14] LABS: BILIRUBIN 2+ (NEGATIVE); BLOOD 1+ (NEGATIVE); CLARITY SL CLOUDY (CLEAR); COLOR YELLOW (YELLOW); GLUCOSE NEGATIVE (NEGATIVE); KETONE TRACE (NEGATIVE); LEUKO ESTERASE NEGATIVE (NEGATIVE); NITRITE NEGATIVE (NEGATIVE); SPECIFIC GRAVITY >= 1.030 (1.005-1.030); UROBILINOGEN 0.2 E.U./dl (0.2-1.0)
[2019-03-24 19:20] LABS: URINE AMPHETAMINES > 1000 (1000ng/ml); URINE BARBITURATES < 200 (200ng/ml); URINE BENZODIAZEPINES < 200 (200ng/ml); URINE CANNABINOIDS (THC) > 50 (50ng/ml); URINE COCAINE > 300 (300ng/ml); URINE METHADONE < 300 (300ng/ml); URINE OPIATES > 300 (300ng/ml)
[2019-03-24 19:27] LABS: URINE PHENCYCLIDINE < 25 (25ng/ml)
[2019-03-24 19:34] LABS: BACTERIA 1+; RBC 0-2 rbc/hpf (0-2)
[2019-03-25] VITALS (13 sets, daily range): BP systolic 98–117; BP diastolic 44–70
[2019-03-25 05:35] LABS: ALBUMIN 3.2 gm/dl (3.1-4.5); CHLORIDE 111 mmol/L (98-107); CHOLESTEROL 111 mg/dL (<200); CREATININE 1.23 mg/dL (0.70-1.30); PHOSPHOROUS 2.7 mg/dL (2.5-4.9); POTASSIUM 3.9 mmol/L (3.5-5.1); SGOT/AST 60 IU/L (3-35); SGPT/ALT 64 U/L (12-78); SODIUM 139 mmol/L (136-145); TRIGLYCERIDES 62 mg/dl (<150); VLDL CHOLESTEROL 12 mg/dL (6-40)
[2019-03-25 05:45] LABS: ALKALINE PHOSPHATASE 72 U/L (45-117); HDL CHOLESTEROL 60 mg/dl (40-60); LDL CHOLESTEROL 39 mg/dL (9-159); THYROID STIM HORMONE (HS) 0.221 uIU/ml (0.358-4.75); TOTAL PROTEIN 6.8 gm/dL (6.4-8.2)
[2019-03-25 05:47] LABS: BUN 28 mg/dl (7-24)
[2019-03-25 07:13] LABS: BASO % 0.2 % (0.0-1.0); EOS # 0.3 10*3/uL (0.0-0.4); EOS % 5.5 % (1.0-4.0); HEMATOCRIT 33.7 % (42.0-52.0); HEMOGLOBIN 11.6 g/dl (14.0-18.0); LYMPH # 1.4 10*3/uL (1.3-4.4); LYMPH % 25.9 % (27.0-41.0); MEAN CELL VOLUME 90.8 fl (80.0-94.0); MEAN CORPUSCULAR HGB 31.3 pg (27.0-31.0); MEAN CORPUSCULAR HGB CONC 34.4 g/dl (33.0-37.0); MEAN PLATELET VOLUME 9.6 fl (9.6-12.3); MONO # 0.8 10*3/uL (0.1-1.0); MONO % 15.2 % (3.0-9.0); NEUT # 2.9 10*3/uL (2.3-7.9); PLATELET COUNT AUTOMATED 243 10*3/uL (130-400); RED BLOOD COUNT 3.71 10*6/uL (4.50-5.90); RED CELL DISTRI WIDTH 13.1 % (0-14.5); WHITE BLOOD COUNT 5.4 10*3/uL (4.8-10.8)
[2019-03-25 07:34] LABS: ABG BASE EXCESS -1.1 mmol/L (-2.0-2.0); ARTERIAL BLOOD GAS PH 7.366 (7.35-7.45)
[2019-03-25 08:07] LABS: VITAMIN D, 25-HYDROXY 30.1 ng/mL (30-100)
[2019-03-26] VITALS (9 sets, daily range): BP systolic 95–129; BP diastolic 34–68
[2019-03-26 07:07] LABS: HEMATOCRIT 34.2 % (42.0-52.0); HEMOGLOBIN 11.5 g/dl (14.0-18.0); MEAN CELL VOLUME 93.2 fl (80.0-94.0); MEAN CORPUSCULAR HGB 31.3 pg (27.0-31.0); MEAN CORPUSCULAR HGB CONC 33.6 g/dl (33.0-37.0); MEAN PLATELET VOLUME 10.1 fl (9.6-12.3); PLATELET COUNT AUTOMATED 209 10*3/uL (130-400); RED BLOOD COUNT 3.67 10*6/uL (4.50-5.90); RED CELL DISTRI WIDTH 13.2 % (0-14.5); WHITE BLOOD COUNT 19.5 10*3/uL (4.8-10.8)
[2019-03-26 07:21] LABS: ALKALINE PHOSPHATASE 72 U/L (45-117); CHLORIDE 111 mmol/L (98-107); CREATININE 0.62 mg/dL (0.70-1.30); SGOT/AST 54 IU/L (3-35); SGPT/ALT 65 U/L (12-78); SODIUM 142 mmol/L (136-145); TOTAL PROTEIN 6.6 gm/dL (6.4-8.2)
[2019-03-26 07:24] LABS: BUN 15 mg/dl (7-24)
[2019-03-26 07:24] LABS: ABG BASE EXCESS -1.7 mmol/L (-2.0-2.0); ARTERIAL BLOOD GAS PH 7.401 (7.35-7.45)
[2019-03-26 08:32] LABS: BASOPHILS 1 % (0-1); PLATELET SUFFICIENCY NORMAL (NORMAL); TOTAL CELLS COUNTED 100 #CELLS
[2019-03-26 11:29] LABS: ABG BASE EXCESS -1.9 mmol/L (-2.0-2.0); ARTERIAL BLOOD GAS PH 7.387 (7.35-7.45)
[2019-03-27] VITALS: BP 110/60
[2019-03-27 07:15] LABS: BASO % 0.2 % (0.0-1.0); EOS # 0.2 10*3/uL (0.0-0.4); EOS % 1.5 % (1.0-4.0); HEMATOCRIT 33.3 % (42.0-52.0); HEMOGLOBIN 11.3 g/dl (14.0-18.0); LYMPH # 1.7 10*3/uL (1.3-4.4); LYMPH % 13.7 % (27.0-41.0); MEAN CELL VOLUME 92.2 fl (80.0-94.0); MEAN CORPUSCULAR HGB 31.3 pg (27.0-31.0); MEAN CORPUSCULAR HGB CONC 33.9 g/dl (33.0-37.0); MEAN PLATELET VOLUME 10.7 fl (9.6-12.3); MONO # 0.9 10*3/uL (0.1-1.0); MONO % 7.1 % (3.0-9.0); NEUT # 9.3 10*3/uL (2.3-7.9); NEUT % 77.1 % (47.0-73.0); PLATELET COUNT AUTOMATED 227 10*3/uL (130-400); RED BLOOD COUNT 3.61 10*6/uL (4.50-5.90)
[2019-03-27 08:00] VITALS: BP 105/55
[2019-03-27 12:00] VITALS: BP 108/54
[2019-03-27] MEDS ORDERED: CEFDINIR300 MG PO (14:09)
== END 2019-03-27 16:07 | disposition left against medical advice (07) | DRG 890 ==
LOC: ED 16:21 → ICCU 17:42 → EDHOLD 17:42 → ICCU 17:53
PROVIDERS: Emergency Medicine; Internal Medicine; Internal Medicine Critical Care Medicine; ADMIT Family Medicine
PROC: 5A1945Z Respiratory Ventilation, 24-96 Consecutive Hours (ICD-10-PCS; principal; 2019-03-24)
PROC: 0BH17EZ Insertion of Endotracheal Airway into Trachea, Via Natural or Artificial Opening (ICD-10-PCS; 2019-03-24)
PROC: 02HV33Z Insertion of Infusion Device into Superior Vena Cava, Percutaneous Approach (ICD-10-PCS; 2019-03-25)
PROC: B548ZZA Ultrasonography of Superior Vena Cava, Guidance (ICD-10-PCS; 2019-03-25)
DX: A41.9 Sepsis, unspecified organism (principal); T40.5X1A Poisoning by cocaine, accidental (unintentional), initial encounter; J96.00 Acute respiratory failure, unspecified whether with hypoxia or hypercapnia; B20 Human immunodeficiency virus [HIV] disease; J69.0 Pneumonitis due to inhalation of food and vomit; N17.0 Acute kidney failure with tubular necrosis; M62.82 Rhabdomyolysis; F05 Delirium due to known physiological condition; F19.10 Other psychoactive substance abuse, uncomplicated; F14.10 Cocaine abuse, uncomplicated; F15.10 Other stimulant abuse, uncomplicated; F12.10 Cannabis abuse, uncomplicated; F90.9 Attention-deficit hyperactivity disorder, unspecified type; F17.210 Nicotine dependence, cigarettes, uncomplicated; G43.909 Migraine, unspecified, not intractable, without status migrainosus; E87.8 Other disorders of electrolyte and fluid balance, not elsewhere classified; F11.10 Opioid abuse, uncomplicated; F10.239 Alcohol dependence with withdrawal, unspecified; Y90.9 Presence of alcohol in blood, level not specified; F32.9 Major depressive disorder, single episode, unspecified; Z53.29 Procedure and treatment not carried out because of patient's decision for other reasons; Y92.89 Other specified places as the place of occurrence of the external cause; Z79.899 Other long term (current) drug therapy

== ENCOUNTER 2019-03-30 18:16 | Emergency (ER) | payer OTHER ==
[~2019-03-30] VITALS: Ht 172.7 cm; Wt 90.7 kg
[~2019-03-30 18:16] MED LIST changes: +CEFDINIR300 MG PO
[2019-03-30 18:33] VITALS: BP 129/78
[2019-03-30 19:19] LABS: BASO % 0.4 % (0.0-1.0); EOS # 0.4 10*3/uL (0.0-0.4); EOS % 3.6 % (1.0-4.0); HEMATOCRIT 35.9 % (42.0-52.0); HEMOGLOBIN 12.9 g/dl (14.0-18.0); LYMPH # 2.4 10*3/uL (1.3-4.4); LYMPH % 24.6 % (27.0-41.0); MEAN CELL VOLUME 87.8 fl (80.0-94.0); MEAN CORPUSCULAR HGB 31.5 pg (27.0-31.0); MEAN CORPUSCULAR HGB CONC 35.9 g/dl (33.0-37.0); MEAN PLATELET VOLUME 9.5 fl (9.6-12.3); MONO % 10.2 % (3.0-9.0); NEUT # 5.9 10*3/uL (2.3-7.9); NEUT % 60.6 % (47.0-73.0); PLATELET COUNT AUTOMATED 309 10*3/uL (130-400); RED BLOOD COUNT 4.09 10*6/uL (4.50-5.90); RED CELL DISTRI WIDTH 12.1 % (0-14.5); WHITE BLOOD COUNT 9.8 10*3/uL (4.8-10.8)
[2019-03-30 19:41] LABS: ALKALINE PHOSPHATASE 78 U/L (45-117); BUN 30 mg/dl (7-24); CHLORIDE 106 mmol/L (98-107); CREATININE 1.38 mg/dL (0.70-1.30); POTASSIUM 3.4 mmol/L (3.5-5.1); SGOT/AST 34 IU/L (3-35); SGPT/ALT 56 U/L (12-78); SODIUM 140 mmol/L (136-145); TOTAL PROTEIN 8.8 gm/dL (6.4-8.2)
[2019-03-30 19:48] LABS: ETHYL ALCOHOL < 3.0 mg/dl (<3); TROPONIN I < 0.015 ng/ml (<0.045)
== END 2019-03-31 08:56 | disposition home or self-care (01) ==
LOC: ED 18:16
PROVIDERS: Internal Medicine
DX: F19.921 Other psychoactive substance use, unspecified with intoxication with delirium (principal); F90.9 Attention-deficit hyperactivity disorder, unspecified type; F31.9 Bipolar disorder, unspecified; F17.210 Nicotine dependence, cigarettes, uncomplicated; Z79.899 Other long term (current) drug therapy

== ENCOUNTER 2019-04-12 22:08 | Emergency (ER) | payer OTHER ==
[~2019-04-12] VITALS: Ht 180.3 cm; Wt 94.8 kg
[2019-04-12] MEDS ORDERED: ZANAFLEX4 MG PO (22:58)
[2019-04-12] MEDS ORDERED: Motrin,Rufen800 MG PO (22:58)
[2019-04-12] MEDS ORDERED: XANAX0.5 MG PO (23:00)
[2019-04-12 23:02] LABS: BASO # 0.1 10*3/uL (0.0-0.1); BASO % 0.5 % (0.0-1.0); EOS # 0.2 10*3/uL (0.0-0.4); EOS % 1.8 % (1.0-4.0); HEMATOCRIT 35.1 % (42.0-52.0); HEMOGLOBIN 12.1 g/dl (14.0-18.0); LYMPH # 2.5 10*3/uL (1.3-4.4); LYMPH % 24.5 % (27.0-41.0); MEAN CELL VOLUME 91.2 fl (80.0-94.0); MEAN CORPUSCULAR HGB 31.4 pg (27.0-31.0); MEAN CORPUSCULAR HGB CONC 34.5 g/dl (33.0-37.0); MEAN PLATELET VOLUME 9.3 fl (9.6-12.3); MONO % 9.7 % (3.0-9.0); NEUT # 6.4 10*3/uL (2.3-7.9); NEUT % 63.3 % (47.0-73.0); PLATELET COUNT AUTOMATED 281 10*3/uL (130-400); RED BLOOD COUNT 3.85 10*6/uL (4.50-5.90); RED CELL DISTRI WIDTH 13.2 % (0-14.5); WHITE BLOOD COUNT 10.1 10*3/uL (4.8-10.8)
[2019-04-12] MEDS ORDERED: ALBUTEROL2.5 MG/0.5 INH (23:03)
[2019-04-12 23:57] LABS: URINE AMPHETAMINES > 1000 (1000ng/ml); URINE BARBITURATES < 200 (200ng/ml); URINE BENZODIAZEPINES < 200 (200ng/ml); URINE CANNABINOIDS (THC) < 50 (50ng/ml); URINE COCAINE < 300 (300ng/ml); URINE METHADONE < 300 (300ng/ml); URINE OPIATES > 300 (300ng/ml)
[2019-04-13 00:05] LABS: ALBUMIN 3.8 gm/dl (3.1-4.5); ALKALINE PHOSPHATASE 85 U/L (45-117); BUN 24 mg/dl (7-24); CHLORIDE 110 mmol/L (98-107); CREATININE 1.37 mg/dL (0.70-1.30); POTASSIUM 3.6 mmol/L (3.5-5.1); SGOT/AST 44 IU/L (3-35); SGPT/ALT 64 U/L (12-78); SODIUM 138 mmol/L (136-145)
[2019-04-13 00:09] LABS: ACETAMINOPHEN (TYLENOL) < 5.0 ug/ml (10-30); ETHYL ALCOHOL < 3.0 mg/dl (<3)
[2019-04-13 00:09] LABS: URINE PHENCYCLIDINE < 25 (25ng/ml)
[2019-04-13 00:16] LABS: BILIRUBIN NEGATIVE (NEGATIVE); BLOOD NEGATIVE (NEGATIVE); CLARITY SL CLOUDY (CLEAR); COLOR YELLOW (YELLOW); GLUCOSE NEGATIVE (NEGATIVE); KETONE NEGATIVE (NEGATIVE); LEUKO ESTERASE NEGATIVE (NEGATIVE); NITRITE NEGATIVE (NEGATIVE); UROBILINOGEN 0.2 E.U./dl (0.2-1.0)
[2019-04-13 00:21] LABS: HYALINE CAST 30-35; MUCOUS TRACE
[2019-04-13 06:16] VITALS: BP 114/80
== END 2019-04-13 09:54 | disposition home or self-care (01) ==
LOC: ED 22:08
PROVIDERS: Emergency Medicine Emergency Medical Services
DX: F41.8 Other specified anxiety disorders (principal); F19.10 Other psychoactive substance abuse, uncomplicated; G43.909 Migraine, unspecified, not intractable, without status migrainosus; F14.10 Cocaine abuse, uncomplicated; F12.10 Cannabis abuse, uncomplicated; F11.10 Opioid abuse, uncomplicated; F15.90 Other stimulant use, unspecified, uncomplicated; F17.200 Nicotine dependence, unspecified, uncomplicated; Z79.899 Other long term (current) drug therapy

== ENCOUNTER 2019-04-15 14:42 | Emergency (ER) | payer OTHER ==
[~2019-04-15 14:42] MED LIST changes: +ALBUTEROL2.5 MG/0.5 INH; +XANAX0.5 MG PO; +ZANAFLEX4 MG PO
[2019-04-15 15:43] LABS: BASO % 0.3 % (0.0-1.0); EOS # 0.1 10*3/uL (0.0-0.4); EOS % 1.2 % (1.0-4.0); HEMATOCRIT 33.9 % (42.0-52.0); HEMOGLOBIN 11.7 g/dl (14.0-18.0); LYMPH # 1.3 10*3/uL (1.3-4.4); LYMPH % 14.7 % (27.0-41.0); MEAN CELL VOLUME 91.4 fl (80.0-94.0); MEAN CORPUSCULAR HGB 31.5 pg (27.0-31.0); MEAN CORPUSCULAR HGB CONC 34.5 g/dl (33.0-37.0); MEAN PLATELET VOLUME 9.3 fl (9.6-12.3); MONO # 0.8 10*3/uL (0.1-1.0); MONO % 9.1 % (3.0-9.0); NEUT # 6.6 10*3/uL (2.3-7.9); NEUT % 74.5 % (47.0-73.0); PLATELET COUNT AUTOMATED 258 10*3/uL (130-400); RED BLOOD COUNT 3.71 10*6/uL (4.50-5.90); RED CELL DISTRI WIDTH 13.1 % (0-14.5); WHITE BLOOD COUNT 8.8 10*3/uL (4.8-10.8)
[2019-04-15 15:52] LABS: ACT PARTIAL THROMBO TIME 29.6 SECONDS (20.0-32.1)
[2019-04-15 16:01] LABS: ALBUMIN 3.9 gm/dl (3.1-4.5); ALKALINE PHOSPHATASE 81 U/L (45-117); BUN 28 mg/dl (7-24); CHLORIDE 106 mmol/L (98-107); CPK 746 U/L (39-308); SGOT/AST 58 IU/L (3-35); SGPT/ALT 65 U/L (12-78); SODIUM 137 mmol/L (136-145); TOTAL PROTEIN 7.9 gm/dL (6.4-8.2)
[2019-04-15 16:05] LABS: ETHYL ALCOHOL < 3.0 mg/dl (<3); TROPONIN I < 0.015 ng/ml (<0.045)
[2019-04-16 10:50] LABS: URINE AMPHETAMINES > 1000 (1000ng/ml); URINE BARBITURATES < 200 (200ng/ml); URINE BENZODIAZEPINES < 200 (200ng/ml); URINE CANNABINOIDS (THC) < 50 (50ng/ml); URINE COCAINE < 300 (300ng/ml); URINE METHADONE < 300 (300ng/ml); URINE OPIATES < 300 (300ng/ml)
[2019-04-16 10:55] LABS: URINE PHENCYCLIDINE < 25 (25ng/ml)
[2019-04-16 11:01] LABS: BILIRUBIN NEGATIVE (NEGATIVE); CLARITY SL CLOUDY (CLEAR); COLOR YELLOW (YELLOW); GLUCOSE NEGATIVE (NEGATIVE); KETONE NEGATIVE (NEGATIVE)
[2019-04-16 11:02] LABS: BLOOD NEGATIVE (NEGATIVE); LEUKO ESTERASE NEGATIVE (NEGATIVE); NITRITE NEGATIVE (NEGATIVE); PH 5.5 (5.0-9.0); SPECIFIC GRAVITY 1.025 (1.005-1.030); UROBILINOGEN 0.2 E.U./dl (0.2-1.0)
[2019-04-16 11:05] LABS: WBC 21-30 wbc/hpf (0-5)
[2019-04-16 11:06] LABS: BACTERIA 1+
== END 2019-04-16 13:31 | disposition home or self-care (01) ==
LOC: ED 14:42
PROVIDERS: Emergency Medicine
DX: F15.10 Other stimulant abuse, uncomplicated (principal); E87.6 Hypokalemia; R74.8 Abnormal levels of other serum enzymes; F32.9 Major depressive disorder, single episode, unspecified; F41.9 Anxiety disorder, unspecified; G43.909 Migraine, unspecified, not intractable, without status migrainosus; F11.10 Opioid abuse, uncomplicated; F14.10 Cocaine abuse, uncomplicated; F17.200 Nicotine dependence, unspecified, uncomplicated; Z79.899 Other long term (current) drug therapy

== ENCOUNTER 2019-04-22 15:30 | Emergency (ER) | payer OTHER ==
[~2019-04-22] VITALS: Ht 180.3 cm; Wt 86.2 kg
[2019-04-22 16:36] VITALS: BP 154/80
[2019-04-23 07:11] LABS: BASO % 0.3 % (0.0-1.0); EOS # 0.3 10*3/uL (0.0-0.4); EOS % 2.7 % (1.0-4.0); HEMATOCRIT 33.2 % (42.0-52.0); HEMOGLOBIN 11.4 g/dl (14.0-18.0); LYMPH # 2.1 10*3/uL (1.3-4.4); MEAN CELL VOLUME 90.5 fl (80.0-94.0); MEAN CORPUSCULAR HGB 31.1 pg (27.0-31.0); MEAN CORPUSCULAR HGB CONC 34.3 g/dl (33.0-37.0); MEAN PLATELET VOLUME 9.3 fl (9.6-12.3); MONO # 1.2 10*3/uL (0.1-1.0); NEUT # 7.3 10*3/uL (2.3-7.9); NEUT % 66.7 % (47.0-73.0); PLATELET COUNT AUTOMATED 259 10*3/uL (130-400); RED BLOOD COUNT 3.67 10*6/uL (4.50-5.90); RED CELL DISTRI WIDTH 13.3 % (0-14.5)
[2019-04-23 07:22] LABS: ALBUMIN 2.9 gm/dl (3.1-4.5); ALKALINE PHOSPHATASE 74 U/L (45-117); BUN 8 mg/dl (7-24); CHLORIDE 109 mmol/L (98-107); CREATININE 0.78 mg/dL (0.70-1.30); POTASSIUM 3.2 mmol/L (3.5-5.1); SGOT/AST 17 IU/L (3-35); SGPT/ALT 37 U/L (12-78); SODIUM 139 mmol/L (136-145)
== END 2019-04-23 11:14 | disposition short-term general hospital (02) ==
LOC: ED 15:30
PROVIDERS: Emergency Medicine
DX: L08.9 Local infection of the skin and subcutaneous tissue, unspecified (principal); F19.10 Other psychoactive substance abuse, uncomplicated; F31.9 Bipolar disorder, unspecified; F41.9 Anxiety disorder, unspecified; G43.909 Migraine, unspecified, not intractable, without status migrainosus; F14.10 Cocaine abuse, uncomplicated; F12.10 Cannabis abuse, uncomplicated; F11.10 Opioid abuse, uncomplicated; F15.10 Other stimulant abuse, uncomplicated; F17.200 Nicotine dependence, unspecified, uncomplicated; Z79.899 Other long term (current) drug therapy

== ENCOUNTER 2019-04-28 02:08 | Emergency (ER) | payer OTHER ==
[~2019-04-28] VITALS: Ht 180.3 cm; Wt 90.7 kg
[2019-04-28 02:13] VITALS: BP 151/95
[2019-04-28] MEDS ORDERED: DOXYCYCLINE HY100 M3 PO (06:41)
[2019-04-28] MEDS ORDERED: SEPTDS PO (06:41)
== END 2019-04-28 07:00 | disposition home or self-care (01) ==
LOC: ED 02:08
DX: A49.02 Methicillin resistant Staphylococcus aureus infection, unspecified site (principal); F41.9 Anxiety disorder, unspecified; F31.9 Bipolar disorder, unspecified; F17.210 Nicotine dependence, cigarettes, uncomplicated; Z59.0 Homelessness; Z79.899 Other long term (current) drug therapy

== ENCOUNTER 2019-05-03 15:05 | Emergency (ER) | payer OTHER ==
[~2019-05-03] VITALS: Ht 182.8 cm; Wt 63.5 kg
[~2019-05-03 15:05] MED LIST changes: +DOXYCYCLINE HY100 M3 PO
[2019-05-03 15:34] VITALS: BP 148/88
[2019-05-03 16:06] LABS: URINE AMPHETAMINES > 1000 (1000ng/ml); URINE BARBITURATES < 200 (200ng/ml); URINE BENZODIAZEPINES < 200 (200ng/ml); URINE CANNABINOIDS (THC) > 50 (50ng/ml); URINE COCAINE > 300 (300ng/ml); URINE METHADONE < 300 (300ng/ml); URINE OPIATES > 300 (300ng/ml)
[2019-05-03 16:13] LABS: URINE PHENCYCLIDINE < 25 (25ng/ml)
[2019-05-06 18:08] LABS: GONOCOCCUS BY NAA Negative (Negative)
== END 2019-05-03 16:48 | disposition home or self-care (01) ==
LOC: ED 15:05
PROVIDERS: Nurse Practitioner Family
DX: F11.10 Opioid abuse, uncomplicated (principal); F15.10 Other stimulant abuse, uncomplicated; Z20.2 Contact with and (suspected) exposure to infections with a predominantly sexual mode of transmission; Z79.2 Long term (current) use of antibiotics; Z79.899 Other long term (current) drug therapy; Z87.891 Personal history of nicotine dependence

== ENCOUNTER 2019-05-04 03:26 | Emergency (ER) | payer OTHER ==
[~2019-05-04] VITALS: Ht 185.4 cm; Wt 79.4 kg
[2019-05-04 04:00] LABS: BASO % 0.3 % (0.0-1.0); EOS # 0.2 10*3/uL (0.0-0.4); EOS % 1.2 % (1.0-4.0); HEMATOCRIT 34.8 % (42.0-52.0); LYMPH % 14.9 % (27.0-41.0); MEAN CELL VOLUME 89.7 fl (80.0-94.0); MEAN CORPUSCULAR HGB 30.9 pg (27.0-31.0); MEAN CORPUSCULAR HGB CONC 34.5 g/dl (33.0-37.0); MEAN PLATELET VOLUME 8.8 fl (9.6-12.3); MONO # 0.9 10*3/uL (0.1-1.0); MONO % 6.5 % (3.0-9.0); NEUT # 10.5 10*3/uL (2.3-7.9); NEUT % 76.8 % (47.0-73.0); PLATELET COUNT AUTOMATED 369 10*3/uL (130-400); RED BLOOD COUNT 3.88 10*6/uL (4.50-5.90); RED CELL DISTRI WIDTH 12.8 % (0-14.5); WHITE BLOOD COUNT 13.7 10*3/uL (4.8-10.8)
[2019-05-04 04:11] LABS: ACT PARTIAL THROMBO TIME 32.5 SECONDS (20.0-32.1)
[2019-05-04 04:16] LABS: ALBUMIN 3.9 gm/dl (3.1-4.5); ALKALINE PHOSPHATASE 93 U/L (45-117); BUN 24 mg/dl (7-24); CHLORIDE 106 mmol/L (98-107); POTASSIUM 3.5 mmol/L (3.5-5.1); SGOT/AST 37 IU/L (3-35); SGPT/ALT 51 U/L (12-78); SODIUM 140 mmol/L (136-145); TOTAL PROTEIN 8.7 gm/dL (6.4-8.2)
[2019-05-04 04:18] LABS: TROPONIN I < 0.015 ng/ml (<0.045)
[2019-05-04 10:00] VITALS: BP 122/70
== END 2019-05-04 23:33 ==
LOC: ED 03:26
PROVIDERS: Emergency Medicine Emergency Medical Services
DX: F19.10 Other psychoactive substance abuse, uncomplicated (principal); G43.909 Migraine, unspecified, not intractable, without status migrainosus; F31.9 Bipolar disorder, unspecified; F41.9 Anxiety disorder, unspecified; F14.10 Cocaine abuse, uncomplicated; F12.10 Cannabis abuse, uncomplicated; F11.10 Opioid abuse, uncomplicated; F17.200 Nicotine dependence, unspecified, uncomplicated; Z79.2 Long term (current) use of antibiotics; Z79.899 Other long term (current) drug therapy

== ENCOUNTER 2019-05-16 11:09 | Inpatient (IN) | payer OTHER ==
[~2019-05-16] VITALS: Ht 180.3 cm; Wt 41.0 kg
[2019-05-16 11:09] VITALS: BP 111/77
--- NOTE | 2019-05-16 11:30 | NUR ---
Pt currently drinking water and aware of urine sample needed.
--- NOTE | 2019-05-16 11:45 | NUR ---
Went into room to see pt at this time.All ekg wires and pulse ox removed by pt.Currently pt resting and appears calm. All lights turned off per request and call scott and siderails in place.
[2019-05-16 12:13] LABS: BASO # 0.1 10*3/uL (0.0-0.1); BASO % 0.3 % (0.0-1.0); EOS # 0.1 10*3/uL (0.0-0.4); EOS % 0.3 % (1.0-4.0); HEMATOCRIT 35.9 % (42.0-52.0); HEMOGLOBIN 12.3 g/dl (14.0-18.0); LYMPH # 1.1 10*3/uL (1.3-4.4); MEAN CELL VOLUME 91.1 fl (80.0-94.0); MEAN CORPUSCULAR HGB 31.2 pg (27.0-31.0); MEAN CORPUSCULAR HGB CONC 34.3 g/dl (33.0-37.0); MEAN PLATELET VOLUME 9.4 fl (9.6-12.3); MONO # 0.8 10*3/uL (0.1-1.0); MONO % 4.6 % (3.0-9.0); NEUT % 88.4 % (47.0-73.0); PLATELET COUNT AUTOMATED 283 10*3/uL (130-400); RED BLOOD COUNT 3.94 10*6/uL (4.50-5.90); RED CELL DISTRI WIDTH 13.7 % (0-14.5); WHITE BLOOD COUNT 18.1 10*3/uL (4.8-10.8)
[2019-05-16 12:31] LABS: ALBUMIN 3.9 gm/dl (3.1-4.5); ALKALINE PHOSPHATASE 99 U/L (45-117); BUN 35 mg/dl (7-24); CHLORIDE 103 mmol/L (98-107); CREATININE 1.48 mg/dL (0.70-1.30); LIPASE 39 U/L (73-393); POTASSIUM 3.8 mmol/L (3.5-5.1); SGOT/AST 87 IU/L (3-35); SGPT/ALT 69 U/L (12-78); SODIUM 135 mmol/L (136-145); TOTAL PROTEIN 8.8 gm/dL (6.4-8.2)
--- NOTE | 2019-05-16 12:33 | NUR ---
Pt currently sleeping at this time and respirations easily and unlabored.
--- NOTE | 2019-05-16 12:45 | NUR ---
PT HAS URINAL AND KNOWS WE NEED A URINE SPECIMEN AND HAS NOT YET PROVIDED THIS SPECIMEN.
[2019-05-16 13:55] VITALS: BP 124/77
--- NOTE | 2019-05-16 13:55 | NUR ---
No open wounds noted but old scabs noted on right and left arm.
--- NOTE | 2019-05-16 14:00 | NUR ---
Time: 1399 A 23 year old MALE admitted to under services of DR. CHANDRIKA STYLES,KEMI Farfan Pt. arrived via WC from ER. Chief complaint: RHABDOMYLOSIS . RADHA SIMENTAL
[2019-05-16 14:15] VITALS: BP 111/70
[2019-05-16 14:21] LABS: URINE AMPHETAMINES > 1000 (1000ng/ml); URINE BARBITURATES < 200 (200ng/ml); URINE BENZODIAZEPINES < 200 (200ng/ml); URINE CANNABINOIDS (THC) < 50 (50ng/ml); URINE COCAINE < 300 (300ng/ml); URINE METHADONE < 300 (300ng/ml); URINE OPIATES < 300 (300ng/ml); URINE PHENCYCLIDINE < 25 (25ng/ml)
[2019-05-16 14:38] LABS: BILIRUBIN NEGATIVE (NEGATIVE); CLARITY SL CLOUDY (CLEAR); COLOR YELLOW (YELLOW); GLUCOSE NEGATIVE (NEGATIVE)
[2019-05-16 14:39] LABS: BLOOD 2+ (NEGATIVE); KETONE 2+ (NEGATIVE); LEUKO ESTERASE NEGATIVE (NEGATIVE); NITRITE NEGATIVE (NEGATIVE); SPECIFIC GRAVITY 1.025 (1.005-1.030); UROBILINOGEN 0.2 E.U./dl (0.2-1.0)
[2019-05-16] MEDS ORDERED: BIKTARVY 50-201 EACH PO (14:39)
[2019-05-16 14:40] LABS: BACTERIA 2+; WBC 21-30 wbc/hpf (0-5)
[2019-05-16 16:00] VITALS: BP 120/62
[2019-05-16 20:00] VITALS: BP 110/53
[2019-05-17] VITALS: BP 106/42
[2019-05-17 07:16] LABS: CHLORIDE 107 mmol/L (98-107); CREATININE 0.86 mg/dL (0.70-1.30); POTASSIUM 3.7 mmol/L (3.5-5.1); SODIUM 137 mmol/L (136-145)
[2019-05-17 07:17] LABS: BUN 23 mg/dl (7-24)
[2019-05-17 07:20] LABS: CPK 702 U/L (39-308)
[2019-05-17 08:00] VITALS: BP 120/80
--- NOTE | 2019-05-17 08:00 | NUR ---
IN TO ROOM TO SEE PT. HE IS AWAKE, ALERT AND ORIENTED. NO STATED COMPLAINTS AT THIS TIME. PT REQUESETS TO HAVE HOME MEDS CONTINUED. DENIES PAIN. PT REPOSITIONS SELF FOR COMFORT. RESPIRATIONS ARE EASY AND REGULAR, NO SOB NOTED. BED IN LOWEST LOCKED POSITION AND CALL LIGHT WITHIN REACH. WILL CONTINUE TO MONITOR.
[2019-05-17 12:00] VITALS: BP 102/61
--- NOTE | 2019-05-17 12:00 | NUR ---
DR. ROWLAND NOTIFIED OF PT WANTING HOME MEDS CONTINUED. ORDERS OBTAINED AND ENTERED. PT NOTIFIED OF MEDS BEING CONTINUED. RESPIRATIONS ARE EASY AND REGULAR. NO S/S OF DISTRESS OR PAIN. NO STATED COMPLAINTS. BED IN LOWEST LOCKED POSITION AND CALL LIGHT WITHIN REACH.
[2019-05-17] MEDS ORDERED: SEROQUEL XR300 MG PO (12:25)
--- NOTE | 2019-05-17 13:59 | NUR ---
PHYSICAL THERAPY Attempted to see pt for evaluation spoke with nsg pt just got into shower he was up ambulating in the room prior to that. Will follow for eval or just screen pending further assessment. [place] PT
[2019-05-17 16:00] VITALS: BP 123/67
--- NOTE | 2019-05-17 18:05 | NUR ---
PT PROVIDED WITH MASK AT THIS TIME SO HE COULD WALK HALLS. STEADY GAIT OBSERVED. NO SOB NOTED. DENIES PAIN.
[2019-05-18] VITALS: BP 123/62
[2019-05-18 08:00] VITALS: BP 113/63
--- NOTE | 2019-05-18 12:49 | NUR ---
Discharge instructions reviewed with patient/family. Patient receptive and verbalizes understanding. Follow-up care arranged. Written instructions given to patient/family. SANIA SIMMS
== END 2019-05-18 13:12 | disposition home or self-care (01) | DRG 351 ==
LOC: ED 11:09 → EDHOLD 13:08 → 5E 13:08
PROVIDERS: Emergency Medicine; ADMIT Internal Medicine
DX: M62.82 Rhabdomyolysis (principal); N17.0 Acute kidney failure with tubular necrosis; F11.10 Opioid abuse, uncomplicated; F12.10 Cannabis abuse, uncomplicated; F15.10 Other stimulant abuse, uncomplicated; F13.10 Sedative, hypnotic or anxiolytic abuse, uncomplicated; F14.10 Cocaine abuse, uncomplicated; F16.10 Hallucinogen abuse, uncomplicated; F90.9 Attention-deficit hyperactivity disorder, unspecified type; G43.909 Migraine, unspecified, not intractable, without status migrainosus; F17.210 Nicotine dependence, cigarettes, uncomplicated; B20 Human immunodeficiency virus [HIV] disease; F41.8 Other specified anxiety disorders; B19.20 Unspecified viral hepatitis C without hepatic coma; Z87.01 Personal history of pneumonia (recurrent); Z83.6 Family history of other diseases of the respiratory system

== ENCOUNTER 2019-05-20 14:42 | Emergency (ER) | payer OTHER ==
[~2019-05-20] VITALS: Ht 187.9 cm; Wt 68.0 kg
[2019-05-20 14:44] VITALS: BP 140/86
[2019-05-20 15:45] LABS: URINE AMPHETAMINES > 1000 (1000ng/ml); URINE BARBITURATES < 200 (200ng/ml); URINE BENZODIAZEPINES < 200 (200ng/ml); URINE CANNABINOIDS (THC) > 50 (50ng/ml); URINE COCAINE > 300 (300ng/ml); URINE METHADONE < 300 (300ng/ml); URINE OPIATES < 300 (300ng/ml)
[2019-05-20 15:46] LABS: URINE PHENCYCLIDINE < 25 (25ng/ml)
[2019-05-20 15:47] LABS: BILIRUBIN NEGATIVE (NEGATIVE); BLOOD NEGATIVE (NEGATIVE); CLARITY CLEAR (CLEAR); COLOR YELLOW (YELLOW); GLUCOSE NEGATIVE (NEGATIVE); KETONE NEGATIVE (NEGATIVE); LEUKO ESTERASE NEGATIVE (NEGATIVE); NITRITE NEGATIVE (NEGATIVE); PH 6.5 (5.0-9.0); UROBILINOGEN 0.2 E.U./dl (0.2-1.0)
[2019-05-20 15:48] LABS: BACTERIA TRACE
== END 2019-05-20 15:58 | disposition home or self-care (01) ==
LOC: ED 14:42
PROVIDERS: Emergency Medicine
DX: F19.10 Other psychoactive substance abuse, uncomplicated (principal); F11.10 Opioid abuse, uncomplicated; F14.10 Cocaine abuse, uncomplicated; F12.90 Cannabis use, unspecified, uncomplicated; Z79.899 Other long term (current) drug therapy; Z72.0 Tobacco use

== ENCOUNTER 2019-08-13 23:07 | Emergency (ER) | payer OTHER ==
[~2019-08-13] VITALS: Ht 180.3 cm; Wt 111.1 kg
[2019-08-14 00:10] LABS: BASO # 0.1 10*3/uL (0.0-0.1); BASO % 0.4 % (0.0-1.0); EOS # 0.2 10*3/uL (0.0-0.4); EOS % 1.5 % (1.0-4.0); HEMATOCRIT 42.7 % (42.0-52.0); LYMPH # 2.2 10*3/uL (1.3-4.4); LYMPH % 16.6 % (27.0-41.0); MEAN CELL VOLUME 89.1 fl (80.0-94.0); MEAN CORPUSCULAR HGB 32.2 pg (27.0-31.0); MEAN CORPUSCULAR HGB CONC 36.1 g/dl (33.0-37.0); MEAN PLATELET VOLUME 9.5 fl (9.6-12.3); MONO # 1.2 10*3/uL (0.1-1.0); MONO % 9.3 % (3.0-9.0); NEUT # 9.6 10*3/uL (2.3-7.9); NEUT % 71.8 % (47.0-73.0); PLATELET COUNT AUTOMATED 232 10*3/uL (130-400); RED BLOOD COUNT 4.79 10*6/uL (4.50-5.90); WHITE BLOOD COUNT 13.3 10*3/uL (4.8-10.8)
[2019-08-14 00:23] LABS: ALBUMIN 4.3 gm/dl (3.1-4.5); ALKALINE PHOSPHATASE 91 U/L (45-117); BUN 28 mg/dl (7-24); CHLORIDE 107 mmol/L (98-107); CREATININE 2.32 mg/dL (0.70-1.30); SGOT/AST 44 IU/L (3-35); SGPT/ALT 110 U/L (12-78); SODIUM 141 mmol/L (136-145); TOTAL PROTEIN 8.7 gm/dL (6.4-8.2)
[2019-08-14 00:24] LABS: ACETAMINOPHEN (TYLENOL) < 5.0 ug/ml (10-30); ETHYL ALCOHOL < 3.0 mg/dl (<3)
[2019-08-14 01:19] LABS: CLARITY SL CLOUDY (CLEAR); COLOR YELLOW (YELLOW)
[2019-08-14 01:21] LABS: BILIRUBIN 1+ (NEGATIVE); GLUCOSE NEGATIVE (NEGATIVE)
[2019-08-14 01:22] LABS: BLOOD NEGATIVE (NEGATIVE); KETONE NEGATIVE (NEGATIVE); NITRITE NEGATIVE (NEGATIVE); UROBILINOGEN 0.2 E.U./dl (0.2-1.0)
[2019-08-14 01:27] LABS: LEUKO ESTERASE TRACE (NEGATIVE)
[2019-08-14 01:28] LABS: URINE AMPHETAMINES > 1000 (1000ng/ml); URINE BARBITURATES < 200 (200ng/ml); URINE BENZODIAZEPINES < 200 (200ng/ml); URINE CANNABINOIDS (THC) > 50 (50ng/ml); URINE COCAINE > 300 (300ng/ml); URINE METHADONE < 300 (300ng/ml); URINE OPIATES > 300 (300ng/ml)
[2019-08-14 01:29] LABS: BACTERIA 1+; FINE GRANULAR CAST 16-20; HYALINE CAST 41-50; URINE PHENCYCLIDINE < 25 (25ng/ml)
[2019-08-14 06:22] VITALS: BP 131/85
== END 2019-08-14 08:50 | disposition left against medical advice (07) ==
LOC: ED 23:07
PROVIDERS: Emergency Medicine
DX: F31.9 Bipolar disorder, unspecified (principal); F90.9 Attention-deficit hyperactivity disorder, unspecified type; F11.10 Opioid abuse, uncomplicated; F15.10 Other stimulant abuse, uncomplicated; F17.200 Nicotine dependence, unspecified, uncomplicated; Z79.899 Other long term (current) drug therapy

== ENCOUNTER 2019-08-16 17:47 | Emergency (ER) | payer OTHER ==
[2019-08-16 17:47] VITALS: BP 146/90
[2019-08-16 19:33] LABS: BASO % 0.3 % (0.0-1.0); EOS # 0.2 10*3/uL (0.0-0.4); EOS % 1.9 % (1.0-4.0); HEMATOCRIT 37.7 % (42.0-52.0); LYMPH # 1.8 10*3/uL (1.3-4.4); LYMPH % 19.9 % (27.0-41.0); MEAN CELL VOLUME 89.5 fl (80.0-94.0); MEAN CORPUSCULAR HGB 32.1 pg (27.0-31.0); MEAN CORPUSCULAR HGB CONC 35.8 g/dl (33.0-37.0); MEAN PLATELET VOLUME 9.4 fl (9.6-12.3); MONO # 1.1 10*3/uL (0.1-1.0); MONO % 12.8 % (3.0-9.0); NEUT # 5.7 10*3/uL (2.3-7.9); NEUT % 64.9 % (47.0-73.0); PLATELET COUNT AUTOMATED 259 10*3/uL (130-400); RED BLOOD COUNT 4.21 10*6/uL (4.50-5.90); RED CELL DISTRI WIDTH 13.2 % (0-14.5); WHITE BLOOD COUNT 8.8 10*3/uL (4.8-10.8)
[2019-08-16 19:49] LABS: ALBUMIN 3.9 gm/dl (3.1-4.5); ALKALINE PHOSPHATASE 78 U/L (45-117); BUN 17 mg/dl (7-24); CHLORIDE 106 mmol/L (98-107); CREATININE 0.99 mg/dL (0.70-1.30); POTASSIUM 3.3 mmol/L (3.5-5.1); SGOT/AST 46 IU/L (3-35); SGPT/ALT 80 U/L (12-78); SODIUM 138 mmol/L (136-145)
[2019-08-16 19:51] LABS: ACETAMINOPHEN (TYLENOL) < 5.0 ug/ml (10-30); ETHYL ALCOHOL < 3.0 mg/dl (<3)
[2019-08-16 19:53] LABS: URINE AMPHETAMINES > 1000 (1000ng/ml); URINE BARBITURATES < 200 (200ng/ml); URINE BENZODIAZEPINES < 200 (200ng/ml); URINE CANNABINOIDS (THC) > 50 (50ng/ml); URINE COCAINE > 300 (300ng/ml); URINE METHADONE < 300 (300ng/ml); URINE OPIATES > 300 (300ng/ml)
[2019-08-16 19:56] LABS: URINE PHENCYCLIDINE < 25 (25ng/ml)
[2019-08-16 20:13] LABS: BILIRUBIN NEGATIVE (NEGATIVE); BLOOD NEGATIVE (NEGATIVE); CLARITY CLEAR (CLEAR); COLOR YELLOW (YELLOW); GLUCOSE NEGATIVE (NEGATIVE); KETONE TRACE (NEGATIVE); NITRITE NEGATIVE (NEGATIVE); UROBILINOGEN 0.2 E.U./dl (0.2-1.0)
[2019-08-16 20:20] LABS: BACTERIA TRACE; EPITHELIAL CELLS 0-2; LEUKO ESTERASE NEGATIVE (NEGATIVE); MUCOUS 1+; RBC 0-2 rbc/hpf (0-2); WBC 0-2 wbc/hpf (0-5)
== END 2019-08-17 05:00 | disposition home or self-care (01) ==
LOC: ED 17:47
PROVIDERS: Emergency Medicine
DX: T65.91XA Toxic effect of unspecified substance, accidental (unintentional), initial encounter (principal); F19.90 Other psychoactive substance use, unspecified, uncomplicated; Z79.899 Other long term (current) drug therapy; Y92.89 Other specified places as the place of occurrence of the external cause

== ENCOUNTER 2019-09-22 19:07 | Emergency (ER) | payer OTHER ==
[~2019-09-22] VITALS: Ht 180.3 cm; Wt 105.9 kg
[2019-09-22 19:17] VITALS: BP 176/148
[2019-09-22] MEDS ORDERED: DEXILANT60 M1 PO (19:22)
[2019-09-22] MEDS ORDERED: IBU800 MG PO (19:24)
--- NOTE | 2019-09-22 20:01 | NUR ---
PT REMAINS RESTLESS ASKING IF HE CAN TAKE HIS IBUPROFEN. 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 ADVISED NOT TO TAKE. DENNIS NEGRO RN.
[2019-09-22 20:02] VITALS: BP 144/88
--- NOTE | 2019-09-22 20:24 | NUR ---
PT STATES UNABLE TO VOID AT THIS TIME. DENNIS NEGRO RN.
[2019-09-22 20:26] LABS: HEMATOCRIT 46.2 % (42.0-52.0); MEAN CELL VOLUME 89.7 fl (80.0-94.0); MEAN CORPUSCULAR HGB 31.3 pg (27.0-31.0); MEAN CORPUSCULAR HGB CONC 34.8 g/dl (33.0-37.0); MEAN PLATELET VOLUME 9.5 fl (9.6-12.3); PLATELET COUNT AUTOMATED 322 10*3/uL (130-400); RED BLOOD COUNT 5.15 10*6/uL (4.50-5.90); WHITE BLOOD COUNT 18.6 10*3/uL (4.8-10.8)
[2019-09-22 20:42] LABS: ALBUMIN 4.5 gm/dl (3.1-4.5); ALKALINE PHOSPHATASE 98 U/L (45-117); BUN 34 mg/dl (7-24); CHLORIDE 109 mmol/L (98-107); CREATININE 1.85 mg/dL (0.70-1.30); POTASSIUM 3.8 mmol/L (3.5-5.1); SGOT/AST 56 IU/L (3-35); SGPT/ALT 76 U/L (12-78); SODIUM 140 mmol/L (136-145)
[2019-09-22 20:47] LABS: PLATELET SUFFICIENCY NORMAL (NORMAL); TOTAL CELLS COUNTED 100 #CELLS
[2019-09-22 20:50] LABS: ACETAMINOPHEN (TYLENOL) < 3.0 ug/ml (10-30); ETHYL ALCOHOL < 3.0 mg/dl (<3)
[2019-09-22 20:52] LABS: URINE AMPHETAMINES > 1000 (1000ng/ml); URINE BARBITURATES < 200 (200ng/ml); URINE BENZODIAZEPINES < 200 (200ng/ml); URINE CANNABINOIDS (THC) > 50 (50ng/ml); URINE COCAINE < 300 (300ng/ml); URINE METHADONE < 300 (300ng/ml); URINE OPIATES < 300 (300ng/ml)
[2019-09-22 21:00] LABS: BILIRUBIN 1+ (NEGATIVE); BLOOD 2+ (NEGATIVE); CLARITY SL CLOUDY (CLEAR); COLOR YELLOW (YELLOW); GLUCOSE NEGATIVE (NEGATIVE); KETONE TRACE (NEGATIVE); LEUKO ESTERASE NEGATIVE (NEGATIVE); NITRITE NEGATIVE (NEGATIVE); UROBILINOGEN 0.2 E.U./dl (0.2-1.0)
--- NOTE | 2019-09-22 21:00 | NUR ---
PT C/O NAUSEA GAGGING IN ROOM . PT IS VERY RESTLESS. WILL NOT STAY ON THE CART.DENINS NEGRO RN
[2019-09-22 21:01] LABS: BACTERIA 1+; HYALINE CAST TNTC; MUCOUS 1+
[2019-09-22 21:04] LABS: URINE PHENCYCLIDINE < 25 (25ng/ml)
--- NOTE | 2019-09-22 23:00 | NUR ---
PT OUT TO DESK ASKING FOR A BOX LUNCH AND SOMETHING TO DRINK. HE HAS HAD SEVERAL GLASSES OF WATER AND HAS BEEN ABLE TO RETAIN THE FLUIDS. DENNIS PORRAS
--- NOTE | 2019-09-23 02:00 | NUR ---
PT SLEEPING AT THIS TIME RSP EASY WILL CONTINUE TO MONITOR. DENNIS NEGRO RN.
--- NOTE | 2019-09-23 06:33 | NUR ---
PT WAS SLEEPING AROUSES EASILY. EXPLAINED THAT THE PATIENT WAS BEING DISCHARGED AT THIS TIME THE PATIENT ASK FOR THA MILK AND C/O DIZZINESS . DOES NOT WANT TO GO HOME. MADE AWARE. DENNIS NEGRO RN.
--- NOTE | 2019-09-23 06:35 | NUR ---
DR NÚÑEZ IN TO TALK WITH THE PATIENT. PT TELLS HER HE IS FEELING DIZZY AND FEEELS LIKE HE CANT GO HOME. DENNIS NEGRO RN.
[2019-09-23 08:23] VITALS: BP 142/88
--- NOTE | 2019-09-23 08:45 | NUR ---
A 24, admitted to , under the services of ALEAH Washington DO with a diagnosis of UTI. VOMITING. Chief complaint is BACK PAIN. Patient arrived via bed from ER. Monitor applied. Initial assessment completed. Vital signs taken and recorded. ALEAH WASHINGTON DO notified of admission to the unit. Orders received. See assessment for past medical history, medications and allergies. Patient and/or family oriented to unit. [facility] visitation policy reviewed. Clothing/patient valuable form completed. ADRY PIMENTEL
[2019-09-23 09:00] VITALS: BP 100/52
--- NOTE | 2019-09-23 10:36 | NUR ---
DR. MOONEY NOTIFIED OF UP TO DATE MEDS.
--- NOTE | 2019-09-23 11:33 | NUR ---
PT ASLEEP AT THIS TIME. CALL LIGHT IN REACH
[2019-09-23 12:00] VITALS: BP 98/56
--- NOTE | 2019-09-23 13:00 | NUR ---
PT EATING AT THIS TIME. NO S/S OF DISTRESS.
--- NOTE | 2019-09-23 15:25 | NUR ---
CONSULT CALLED TO DR. OCHOA, STATED SHE'D SEE PT SHORTLY.
[2019-09-23 16:00] VITALS: BP 100/59
--- NOTE | 2019-09-23 19:31 | NUR ---
24 HR chart check completed.
[2019-09-23 20:00] VITALS: BP 125/63
--- NOTE | 2019-09-23 21:00 | NUR ---
RESTING IN BED WITH NO ACUTE DISTRESS NOTED. RESPIRATIONS EASY. LUNGS DIMINISHED, CLEAR. PULSE OX 97% RA. DENIES BACK PAIN. IV FLUIDS INFUSING PER ORDER. CALL LIGHT WITHIN REACH. NO VOICED COMPLAINTS
--- NOTE | 2019-09-23 23:11 | NUR ---
MEDICATED WITH TYLENOL PER PRN ORDER FOR COMPLAINTS OF MOUTH PAIN RATING 5. CALL LIGHT WITHIN REACH. WILL MONITOR FOR EFFECTIVENESS
[2019-09-24] VITALS: BP 94/55
--- NOTE | 2019-09-24 | NUR ---
MEDS APPEAR EFFECTIVE. SLEEPING. NO DISTRESS NOTED. RESPIRATIONS EASY. VSS. IV FLUIDS INFUSING PER ORDER. CALL LIGHT WITHIN REACH.
[2019-09-24] MEDS ORDERED: SEROQUEL XR400 MG PO (02:17)
--- NOTE | 2019-09-24 06:00 | NUR ---
SLEPT THROUGHOUT NIGHT WITH NO DISTRESS NOTED. RESPIRATIONS EASY. IV FLUIDS MAINTAINED. CALL LIGHT WITHIN REACH. NO VOICED COMPLAINTS THIS SHIFT
[2019-09-24 07:45] LABS: BASO % 0.6 % (0.0-1.0); EOS # 0.4 10*3/uL (0.0-0.4); EOS % 8.4 % (1.0-4.0); HEMATOCRIT 36.8 % (42.0-52.0); LYMPH # 1.7 10*3/uL (1.3-4.4); LYMPH % 32.4 % (27.0-41.0); MEAN CORPUSCULAR HGB 31.8 pg (27.0-31.0); MEAN CORPUSCULAR HGB CONC 34.5 g/dl (33.0-37.0); MONO # 0.8 10*3/uL (0.1-1.0); MONO % 15.2 % (3.0-9.0); NEUT # 2.3 10*3/uL (2.3-7.9); RED CELL DISTRI WIDTH 13.2 % (0-14.5); WHITE BLOOD COUNT 5.3 10*3/uL (4.8-10.8)
[2019-09-24 07:48] LABS: PLATELET COUNT AUTOMATED 203 10*3/uL (130-400)
[2019-09-24 07:54] LABS: CHLORIDE 114 mmol/L (98-107); CREATININE 0.85 mg/dL (0.70-1.30); POTASSIUM 3.8 mmol/L (3.5-5.1); SGOT/AST 44 IU/L (3-35); SGPT/ALT 51 U/L (12-78); SODIUM 142 mmol/L (136-145)
[2019-09-24 07:57] LABS: ALKALINE PHOSPHATASE 74 U/L (45-117); LDH 216 U/L (87-241); TOTAL PROTEIN 6.9 gm/dL (6.4-8.2)
[2019-09-24 08:00] VITALS: BP 128/80
[2019-09-24 08:00] LABS: BUN 23 mg/dl (7-24); CPK 865 U/L (39-308)
--- NOTE | 2019-09-24 08:30 | NUR ---
Mirror Painter in to talk to patient. Patient states lives at home with his friends. There are 0 steps in the home. Physician: Dr. Matt Estrella Pharmacy: [facility] [place] health services: none Patient's level of ADLs: INDEPENDENT Patient has working utilities: yes DME: none Follow-up physician's appointment after d/c: he prefers to make his own follow up appt after discharge Does patient want to access PORTAL?: no Discharge plan discussed with patient. He is currently staying with friends in [place]. He states he was released from care home on September 18. He states he has been at a detention in [place] previously but was unsure if they would accept him back. Discussed if there were other family members that he could stay with and he denies. He states his mother is in town but lives in [place]. Discussed the possibility of him living with his mother and he states he is unable to because her boyfriend will not let him live with them. home health care social worker notified that patient states he is homeless as he doesn't want to return to his friend's home. Discharge plan at this time is undetermined. He said his mother can provide transportation on discharge. ROBERTA HUFF
--- NOTE | 2019-09-24 11:21 | NUR ---
BEVEL FACE STONER AND POLISHER WAS NOTIFIED BY MEAL PACKER THAT THIS PATIENT IS HOMELESS. BEVEL FACE STONER AND POLISHER REACHED OUT TO THE [facility] AND LEFT A MESSAGE FOR DC WANDA FOR A RETURN CALL. BEVEL FACE STONER AND POLISHER REACHED OUT TO [facility] AT [phone]. SOHAM STATED THE PATIENT WOULD HAVE TO CONTACT HER FOR A SCREENING PROCESS. BEVEL FACE STONER AND POLISHER SPOKE WITH THE PATIENT. PATIENT STATED THAT HE HAS BEEN STAYING WITH A LADY IN THE [place] IN [place]. PATIENT STATED THAT HE HAS PREVIOUSLY STAYED AT THE [facility] IN [place] ([facility]). BEVEL FACE STONER AND POLISHER PROVIDED THE PATIENT WITH THE HOMELESS [facility] LIST. BEVEL FACE STONER AND POLISHER ALSO PROVIDED THE PATIENT WITH A LIST OF FOOD PANTRIES IF NEEDED. BEVEL FACE STONER AND POLISHER NOTIFIED MEAL PACKER ROBERTA OF THIS. BEVEL FACE STONER AND POLISHER TO FOLLOW RESPECTFULLY.
[2019-09-24 12:00] VITALS: BP 116/59
[2019-09-24 20:00] VITALS: BP 118/65
--- NOTE | 2019-09-24 20:46 | NUR ---
NOTIFIED DR. SPRING THAT PATIENT IS REQUESTING IBUPROFEN 800MG AND THAT IT IS CURRENTLY ON HOLD. HIS BUN/CREAT WAS INITIALLY ELEVATED ON ADMISSION BUT IS NORMAL NOW. SHE STATED WE CAN GO AHEAD AND GIVE IT TO HIM
--- NOTE | 2019-09-24 21:48 | NUR ---
PRN MOTRIN GIVEN FOR PT COMPLAINTS OF MOUTH PAIN. RATING IT 7/10. CALL LIGHT WITHIN REACH, WILL MONITOR
--- NOTE | 2019-09-24 22:19 | NUR ---
SPOKE WITH DR. OCHOA AT THIS TIME PERTAINING TO URINES THAT WERE ORDERED. SHE STATED SHE WOULD LIKE ALL OF THE URINES THAT WERE ORDERED, EXCEPT FOR THE 24 HOUR URINE.
--- NOTE | 2019-09-24 22:48 | NUR ---
PRN MOTRIN SOMEWHAT EFFECTIVE PER PT. ALSO EXPLAINED THAT WE WILL NEED URINE SAMPLES FOR THE SOLOIST DANCER, NOTIFIED PATIENT THAT THE URINE CUP IS SITTING IN THE BATHROOM WHENEVER HE NEEDS TO GO. PATIENT VERBALIZED UNDESTANDING, STATED THAT HE JUST USED THE RESTROOM, BUT WILL NOTIFY THIS NURSE WHENEVER HE GOES.
[2019-09-25] VITALS: BP 104/54
[2019-09-25 04:56] LABS: URINE CREATININE RANDOM 30.4 mg/dL
--- NOTE | 2019-09-25 05:11 | NUR ---
24 HR chart check completed.
[2019-09-25 07:49] LABS: CHLORIDE 112 mmol/L (98-107); CREATININE 0.71 mg/dL (0.70-1.30); POTASSIUM 3.7 mmol/L (3.5-5.1); SODIUM 142 mmol/L (136-145)
[2019-09-25 07:50] LABS: BUN 13 mg/dl (7-24)
[2019-09-25 08:00] VITALS: BP 122/50
--- NOTE | 2019-09-25 11:00 | NUR ---
PATIENT REFUSED WOUND ASSESSMENT/DOCUMENTATION.
--- NOTE | 2019-09-25 11:05 | NUR ---
Discharge instructions reviewed with patient. Patient receptive and verbalizes understanding. Follow-up care arranged. Written instructions given to patient. TOSHIA BLANCHARD
== END 2019-09-25 11:05 | disposition home or self-care (01) ==
LOC: ED 19:07 → EDHOLD 09-23 06:42 → 4E 09-23 06:42 → EDHOLD 09-23 06:42 → 4E 09-23 08:22
PROVIDERS: Emergency Medicine; Internal Medicine Nephrology; Student in an Organized Health Care Education/Training Program; ADMIT Internal Medicine
DX: E86.0 Dehydration (principal); N39.0 Urinary tract infection, site not specified; M54.6 Pain in thoracic spine; R11.10 Vomiting, unspecified; F41.9 Anxiety disorder, unspecified; F31.9 Bipolar disorder, unspecified; Z79.899 Other long term (current) drug therapy

== ENCOUNTER 2019-09-27 11:55 | Emergency (ER) | payer OTHER ==
[~2019-09-27 11:55] MED LIST changes: +DEXILANT60 M1 PO; +IBU800 MG PO
[2019-09-27 12:54] VITALS: BP 121/65
[2019-09-27 13:47] LABS: BASO % 0.3 % (0.0-1.0); EOS # 0.1 10*3/uL (0.0-0.4); EOS % 0.7 % (1.0-4.0); HEMATOCRIT 42.4 % (42.0-52.0); LYMPH # 1.4 10*3/uL (1.3-4.4); LYMPH % 10.3 % (27.0-41.0); MEAN CELL VOLUME 89.1 fl (80.0-94.0); MEAN CORPUSCULAR HGB 31.5 pg (27.0-31.0); MEAN CORPUSCULAR HGB CONC 35.4 g/dl (33.0-37.0); MEAN PLATELET VOLUME 9.9 fl (9.6-12.3); MONO # 0.9 10*3/uL (0.1-1.0); MONO % 6.6 % (3.0-9.0); NEUT # 11.3 10*3/uL (2.3-7.9); NEUT % 81.8 % (47.0-73.0); PLATELET COUNT AUTOMATED 270 10*3/uL (130-400); RED BLOOD COUNT 4.76 10*6/uL (4.50-5.90); RED CELL DISTRI WIDTH 12.5 % (0-14.5); WHITE BLOOD COUNT 13.7 10*3/uL (4.8-10.8)
[2019-09-27 14:02] LABS: ALBUMIN 4.3 gm/dl (3.1-4.5); ALKALINE PHOSPHATASE 99 U/L (45-117); BUN 20 mg/dl (7-24); CHLORIDE 102 mmol/L (98-107); CPK 617 U/L (39-308); POTASSIUM 3.3 mmol/L (3.5-5.1); SGOT/AST 54 IU/L (3-35); SGPT/ALT 64 U/L (12-78); SODIUM 137 mmol/L (136-145); TOTAL PROTEIN 9.5 gm/dL (6.4-8.2)
[2019-09-27 14:07] LABS: ETHYL ALCOHOL < 3.0 mg/dl (<3)
== END 2019-09-27 20:12 | disposition home or self-care (01) ==
LOC: ED 11:55
PROVIDERS: Emergency Medicine
DX: N17.9 Acute kidney failure, unspecified (principal); F19.10 Other psychoactive substance abuse, uncomplicated; F41.9 Anxiety disorder, unspecified; F17.200 Nicotine dependence, unspecified, uncomplicated; Z79.899 Other long term (current) drug therapy

== ENCOUNTER 2019-10-06 00:45 | Emergency (ER) | payer OTHER ==
[~2019-10-06] VITALS: Ht 182.8 cm; Wt 90.7 kg
[2019-10-06 04:00] VITALS: BP 144/92
[2019-10-06 11:32] LABS: URINE AMPHETAMINES > 1000 (1000ng/ml); URINE BARBITURATES < 200 (200ng/ml); URINE BENZODIAZEPINES < 200 (200ng/ml); URINE CANNABINOIDS (THC) > 50 (50ng/ml); URINE COCAINE > 300 (300ng/ml); URINE METHADONE < 300 (300ng/ml); URINE OPIATES > 300 (300ng/ml)
[2019-10-06 11:35] LABS: URINE PHENCYCLIDINE < 25 (25ng/ml)
== END 2019-10-06 11:23 | disposition other institution (70) ==
LOC: ED 00:45
PROVIDERS: Emergency Medicine
DX: F29 Unspecified psychosis not due to a substance or known physiological condition (principal); F19.10 Other psychoactive substance abuse, uncomplicated; F11.10 Opioid abuse, uncomplicated; F15.10 Other stimulant abuse, uncomplicated; G43.909 Migraine, unspecified, not intractable, without status migrainosus; F17.200 Nicotine dependence, unspecified, uncomplicated; Z79.899 Other long term (current) drug therapy

== ENCOUNTER 2019-11-23 16:55 | Observation (INO) | payer OTHER ==
[~2019-11-23] VITALS: Ht 180.3 cm; Wt 105.8 kg
[2019-11-23 17:06] VITALS: BP 122/66
[2019-11-23 17:53] LABS: URINE AMPHETAMINES > 1000 (1000ng/ml); URINE BARBITURATES < 200 (200ng/ml); URINE BENZODIAZEPINES < 200 (200ng/ml); URINE CANNABINOIDS (THC) < 50 (50ng/ml); URINE COCAINE > 300 (300ng/ml); URINE METHADONE < 300 (300ng/ml); URINE OPIATES < 300 (300ng/ml)
[2019-11-23 17:59] LABS: URINE PHENCYCLIDINE < 25 (25ng/ml)
[2019-11-23 18:06] LABS: BACTERIA 2+; BILIRUBIN NEGATIVE; BLOOD NEGATIVE (NEGATIVE); CLARITY CLEAR (CLEAR); COLOR YELLOW (YELLOW); EPITHELIAL CELLS 16-20; GLUCOSE NEGATIVE; KETONE NEGATIVE; LEUKO ESTERASE NEGATIVE (NEGATIVE); NITRITE NEGATIVE (NEGATIVE); PH 5.5 (4.5-8.0)
[2019-11-23 18:07] LABS: HYALINE CAST 0-2
[2019-11-23 18:24] LABS: INTERNATIONAL NORM RATIO 0.9 (2.0-3.5)
[2019-11-23 18:26] LABS: BASO % 0.4 % (0.0-1.0); EOS # 0.6 10*3/uL (0.0-0.4); EOS % 5.8 % (1.0-4.0); HEMATOCRIT 37.6 % (42.0-52.0); LYMPH % 18.9 % (27.0-41.0); MEAN CELL VOLUME 86.4 fl (80.0-94.0); MEAN PLATELET VOLUME 10.4 fl (9.6-12.3); MONO # 1.4 10*3/uL (0.1-1.0); MONO % 13.3 % (3.0-9.0); NEUT # 6.4 10*3/uL (2.3-7.9); NEUT % 61.4 % (47.0-73.0); PLATELET COUNT AUTOMATED 302 10*3/uL (130-400); RED BLOOD COUNT 4.35 10*6/uL (4.50-5.90); RED CELL DISTRI WIDTH 12.8 % (0-14.5); WHITE BLOOD COUNT 10.4 10*3/uL (4.8-10.8)
[2019-11-23 18:29] LABS: ALBUMIN 3.2 gm/dl (3.1-4.5); ALKALINE PHOSPHATASE 79 U/L (45-117); BUN 48 mg/dl (7-24); CHLORIDE 98 mmol/L (98-107); CREATININE 1.61 mg/dL (0.70-1.30); LIPASE 110 U/L (73-393); POTASSIUM 2.6 mmol/L (3.5-5.1); SGOT/AST 25 IU/L (3-35); SGPT/ALT 36 U/L (12-78); SODIUM 134 mmol/L (136-145); TOTAL PROTEIN 7.9 gm/dL (6.4-8.2)
[2019-11-23 18:32] LABS: ETHYL ALCOHOL < 3.0 mg/dl (<3)
[2019-11-23 19:50] VITALS: BP 124/65
[2019-11-23 20:40] VITALS: BP 114/58
[2019-11-23] MEDS ORDERED: MIXED AMPHETAMI30 MG PO (20:53)
[2019-11-24 06:55] LABS: BASO % 0.3 % (0.0-1.0); EOS # 0.6 10*3/uL (0.0-0.4); EOS % 8.6 % (1.0-4.0); HEMATOCRIT 35.3 % (42.0-52.0); LYMPH # 1.7 10*3/uL (1.3-4.4); LYMPH % 25.7 % (27.0-41.0); MEAN CELL VOLUME 87.8 fl (80.0-94.0); MEAN CORPUSCULAR HGB 31.3 pg (27.0-31.0); MEAN CORPUSCULAR HGB CONC 35.7 g/dl (33.0-37.0); MEAN PLATELET VOLUME 10.2 fl (9.6-12.3); MONO # 1.1 10*3/uL (0.1-1.0); MONO % 16.4 % (3.0-9.0); NEUT # 3.2 10*3/uL (2.3-7.9); NEUT % 48.7 % (47.0-73.0); PLATELET COUNT AUTOMATED 285 10*3/uL (130-400); RED BLOOD COUNT 4.02 10*6/uL (4.50-5.90); RED CELL DISTRI WIDTH 12.7 % (0-14.5); WHITE BLOOD COUNT 6.5 10*3/uL (4.8-10.8)
[2019-11-24 07:29] LABS: CHLORIDE 104 mmol/L (98-107); CREATININE 0.98 mg/dL (0.70-1.30); SODIUM 138 mmol/L (136-145)
[2019-11-24 07:30] LABS: BUN 24 mg/dl (7-24)
[2019-11-24 08:00] VITALS: BP 110/58
[2019-11-24 12:00] VITALS: BP 119/68
[2019-11-24 16:00] VITALS: BP 132/79
[2019-11-24 20:00] VITALS: BP 130/68
[2019-11-25] VITALS: BP 114/51
[2019-11-25 08:00] VITALS: BP 116/65
[2019-11-25 09:24] LABS: CHLORIDE 110 mmol/L (98-107); CREATININE 0.84 mg/dL (0.70-1.30); SODIUM 142 mmol/L (136-145)
[2019-11-25 09:25] LABS: BUN 11 mg/dl (7-24)
== END 2019-11-25 15:21 | disposition home or self-care (01) ==
LOC: ED 16:55 → 4E 18:53 → EDHOLD 18:53 → 4E 20:02
PROVIDERS: Emergency Medicine; Internal Medicine; ADMIT Internal Medicine; ATTEND Internal Medicine
DX: E87.6 Hypokalemia (principal); N17.0 Acute kidney failure with tubular necrosis; M79.671 Pain in right foot

== ENCOUNTER 2019-12-08 15:04 | Emergency (ER) | payer OTHER ==
[~2019-12-08 15:04] MED LIST changes: +MIXED AMPHETAMI30 MG PO
[2019-12-08 15:06] VITALS: BP 132/81
== END 2019-12-08 17:08 | disposition home or self-care (01) ==
LOC: ED 15:04
DX: F19.10 Other psychoactive substance abuse, uncomplicated (principal); M79.674 Pain in right toe(s); F31.9 Bipolar disorder, unspecified; F41.9 Anxiety disorder, unspecified; F17.200 Nicotine dependence, unspecified, uncomplicated; Z79.899 Other long term (current) drug therapy

== ENCOUNTER 2019-12-18 16:22 | Emergency (ER) | payer OTHER ==
[~2019-12-18] VITALS: Wt 81.6 kg
[2019-12-18 16:26] VITALS: BP 106/57
[2019-12-18 18:47] LABS: BILIRUBIN Negative (Negative); BLOOD Negative (Negative); CLARITY Clear (Clear); COLOR Dark Yellow (Yellow); GLUCOSE Negative (Negative); KETONE Negative (Negative); LEUKO ESTERASE Negative (Negative); NITRITE Negative (Negative)
[2019-12-18 18:49] LABS: URINE AMPHETAMINES > 1000 (1000ng/ml); URINE BARBITURATES < 200 (200ng/ml); URINE BENZODIAZEPINES < 200 (200ng/ml); URINE CANNABINOIDS (THC) > 50 (50ng/ml); URINE COCAINE < 300 (300ng/ml); URINE METHADONE < 300 (300ng/ml); URINE OPIATES > 300 (300ng/ml); URINE PHENCYCLIDINE < 25 (25ng/ml)
[2019-12-18 19:13] LABS: BACTERIA 1+; WBC 21-30 wbc/hpf (0-5)
[2019-12-18 19:14] LABS: CALCIUM OXALATE CRYSTALS TRACE; MUCOUS 2+
[2019-12-18 20:50] LABS: BASO % 0.4 % (0.0-1.0); EOS # 0.1 10*3/uL (0.0-0.4); EOS % 1.5 % (1.0-4.0); HEMATOCRIT 35.5 % (42.0-52.0); LYMPH # 1.7 10*3/uL (1.3-4.4); LYMPH % 20.3 % (27.0-41.0); MEAN CELL VOLUME 87.2 fl (80.0-94.0); MEAN CORPUSCULAR HGB 30.2 pg (27.0-31.0); MEAN CORPUSCULAR HGB CONC 34.6 g/dl (33.0-37.0); MEAN PLATELET VOLUME 9.3 fl (9.6-12.3); MONO # 0.6 10*3/uL (0.1-1.0); MONO % 7.5 % (3.0-9.0); NEUT # 5.7 10*3/uL (2.3-7.9); NEUT % 70.2 % (47.0-73.0); PLATELET COUNT AUTOMATED 353 10*3/uL (130-400); RED BLOOD COUNT 4.07 10*6/uL (4.50-5.90); RED CELL DISTRI WIDTH 12.3 % (0-14.5); WHITE BLOOD COUNT 8.2 10*3/uL (4.8-10.8)
[2019-12-18 21:04] LABS: ACT PARTIAL THROMBO TIME 32.2 SECONDS (20.0-32.1); INTERNATIONAL NORM RATIO 1.1 (2.0-3.5)
[2019-12-18 21:10] LABS: ALBUMIN 3.6 gm/dl (3.1-4.5); ALKALINE PHOSPHATASE 77 U/L (45-117); BUN 10 mg/dl (7-24); CHLORIDE 109 mmol/L (98-107); CREATININE 0.97 mg/dL (0.70-1.30); LIPASE 108 U/L (73-393); POTASSIUM 3.3 mmol/L (3.5-5.1); SGOT/AST 25 IU/L (3-35); SGPT/ALT 29 U/L (12-78); SODIUM 138 mmol/L (136-145); TOTAL PROTEIN 8.8 gm/dL (6.4-8.2)
[2019-12-18 21:24] LABS: ACETAMINOPHEN (TYLENOL) < 5.0 ug/ml (10-30); ETHYL ALCOHOL < 3.0 mg/dl (<3); TROPONIN I < 0.015 ng/ml (<0.045)
== END 2019-12-19 01:41 | disposition home or self-care (01) ==
LOC: ED 16:22
PROVIDERS: Emergency Medicine
DX: F15.121 Other stimulant abuse with intoxication delirium (principal); R79.1 Abnormal coagulation profile

== ENCOUNTER 2020-01-09 01:07 | Emergency (ER) | payer OTHER ==
[~2020-01-09] VITALS: Ht 180.3 cm; Wt 102.1 kg
[2020-01-09 01:30] VITALS: BP 141/82
== END 2020-01-09 02:03 | disposition home or self-care (01) ==
LOC: ED 01:07
DX: B86 Scabies (principal); F32.9 Major depressive disorder, single episode, unspecified; F41.9 Anxiety disorder, unspecified; F17.200 Nicotine dependence, unspecified, uncomplicated; Z79.899 Other long term (current) drug therapy

== ENCOUNTER 2020-02-06 11:06 | Emergency (ER) | payer OTHER ==
[~2020-02-06] VITALS: Ht 180.3 cm; Wt 90.7 kg
[~2020-02-06 11:06] MED LIST changes: +ELIMITE 5%60 GM T
[2020-02-06 11:22] VITALS: BP 112/65
[2020-02-06 11:51] LABS: BASO % 0.4 % (0.0-1.0); EOS # 0.2 10*3/uL (0.0-0.4); EOS % 2.8 % (1.0-4.0); HEMATOCRIT 31.1 % (42.0-52.0); LYMPH # 2.1 10*3/uL (1.3-4.4); LYMPH % 27.8 % (27.0-41.0); MEAN CELL VOLUME 88.9 fl (80.0-94.0); MEAN CORPUSCULAR HGB CONC 33.8 g/dl (33.0-37.0); MEAN PLATELET VOLUME 8.9 fl (9.6-12.3); MONO # 0.7 10*3/uL (0.1-1.0); MONO % 8.9 % (3.0-9.0); NEUT # 4.5 10*3/uL (2.3-7.9); PLATELET COUNT AUTOMATED 256 10*3/uL (130-400); WHITE BLOOD COUNT 7.5 10*3/uL (4.8-10.8)
[2020-02-06 12:00] LABS: ACT PARTIAL THROMBO TIME 33.5 SECONDS (20.0-32.1)
[2020-02-06 12:06] LABS: ALBUMIN 3.5 gm/dl (3.1-4.5); ALKALINE PHOSPHATASE 70 U/L (45-117); BUN 17 mg/dl (7-24); CHLORIDE 108 mmol/L (98-107); CREATININE 0.96 mg/dL (0.70-1.30); LIPASE 80 U/L (73-393); POTASSIUM 3.2 mmol/L (3.5-5.1); SGOT/AST 23 IU/L (3-35); SGPT/ALT 29 U/L (12-78); SODIUM 140 mmol/L (136-145); TOTAL PROTEIN 7.4 gm/dL (6.4-8.2)
[2020-02-06 12:17] LABS: ACETAMINOPHEN (TYLENOL) < 5.0 ug/ml (10-30); ETHYL ALCOHOL < 3.0 mg/dl (<3); TROPONIN I < 0.015 ng/ml (<0.045)
[2020-02-06 17:36] LABS: BILIRUBIN Negative (Negative); BLOOD 2+ (Negative); CLARITY Clear (Clear); COLOR Yellow (Yellow); GLUCOSE Negative (Negative); KETONE Negative (Negative); LEUKO ESTERASE Negative (Negative); NITRITE Negative (Negative)
[2020-02-06 17:44] LABS: BACTERIA TRACE; MUCOUS TRACE; RBC 21-30 rbc/hpf (0-2)
[2020-02-06 17:46] LABS: URINE AMPHETAMINES > 1000 (1000ng/ml); URINE BARBITURATES < 200 (200ng/ml); URINE BENZODIAZEPINES < 200 (200ng/ml); URINE CANNABINOIDS (THC) > 50 (50ng/ml); URINE COCAINE < 300 (300ng/ml); URINE METHADONE < 300 (300ng/ml); URINE OPIATES < 300 (300ng/ml)
[2020-02-06 17:47] LABS: URINE PHENCYCLIDINE < 25 (25ng/ml)
== END 2020-02-06 19:00 | disposition home or self-care (01) ==
LOC: ED 11:06
PROVIDERS: Emergency Medicine
DX: F19.10 Other psychoactive substance abuse, uncomplicated (principal); Z79.899 Other long term (current) drug therapy

== ENCOUNTER 2020-02-07 23:25 | Emergency (ER) | payer OTHER | END 2020-02-07 23:34 | disposition left against medical advice (07) | LOC: ED 23:25 | DX: B83.9 Helminthiasis, unspecified (principal); Z79.899 Other long term (current) drug therapy; Z53.21 Procedure and treatment not carried out due to patient leaving prior to being seen by health care provider ==

== ENCOUNTER 2020-02-08 01:09 | Emergency (ER) | payer OTHER ==
[2020-02-08 01:18] VITALS: BP 119/80
== END 2020-02-08 01:45 | disposition home or self-care (01) ==
LOC: ED 01:09
DX: L98.8 Other specified disorders of the skin and subcutaneous tissue (principal); F29 Unspecified psychosis not due to a substance or known physiological condition; Z79.899 Other long term (current) drug therapy

== ENCOUNTER 2020-03-11 07:41 | Emergency (ER) | payer OTHER ==
[~2020-03-11] VITALS: Ht 175.2 cm; Wt 86.2 kg
[2020-03-11 07:47] VITALS: BP 114/54
== END 2020-03-11 09:58 | disposition left against medical advice (07) ==
LOC: ED 07:41
DX: S10.95XA Superficial foreign body of unspecified part of neck, initial encounter (principal); F90.9 Attention-deficit hyperactivity disorder, unspecified type; F31.9 Bipolar disorder, unspecified; Z79.899 Other long term (current) drug therapy; Z90.89 Acquired absence of other organs; Z87.891 Personal history of nicotine dependence; X58.XXXA Exposure to other specified factors, initial encounter; Y93.89 Activity, other specified; Y92.89 Other specified places as the place of occurrence of the external cause; Y99.8 Other external cause status

== ENCOUNTER 2020-03-13 23:12 | Emergency (ER) | payer OTHER ==
[~2020-03-13] VITALS: Ht 195 cm
[2020-03-14 00:09] LABS: BASO % 0.2 % (0.0-1.0); EOS # 0.1 10*3/uL (0.0-0.4); EOS % 1.2 % (1.0-4.0); HEMATOCRIT 35.7 % (42.0-52.0); LYMPH # 2.3 10*3/uL (1.3-4.4); LYMPH % 26.6 % (27.0-41.0); MEAN CELL VOLUME 88.1 fl (80.0-94.0); MEAN CORPUSCULAR HGB 30.6 pg (27.0-31.0); MEAN CORPUSCULAR HGB CONC 34.7 g/dl (33.0-37.0); MEAN PLATELET VOLUME 9.4 fl (9.6-12.3); MONO # 0.6 10*3/uL (0.1-1.0); MONO % 6.9 % (3.0-9.0); NEUT # 5.6 10*3/uL (2.3-7.9); NEUT % 64.9 % (47.0-73.0); PLATELET COUNT AUTOMATED 272 10*3/uL (130-400); RED BLOOD COUNT 4.05 10*6/uL (4.50-5.90); RED CELL DISTRI WIDTH 13.2 % (0-14.5); WHITE BLOOD COUNT 8.6 10*3/uL (4.8-10.8)
[2020-03-14 00:26] LABS: ALBUMIN 3.7 gm/dl (3.1-4.5); ALKALINE PHOSPHATASE 79 U/L (45-117); BUN 22 mg/dl (7-24); CHLORIDE 108 mmol/L (98-107); CREATININE 1.02 mg/dL (0.70-1.30); POTASSIUM 3.8 mmol/L (3.5-5.1); SGOT/AST 29 IU/L (3-35); SGPT/ALT 30 U/L (12-78); SODIUM 141 mmol/L (136-145); TOTAL PROTEIN 8.1 gm/dL (6.4-8.2)
[2020-03-14 00:27] LABS: ETHYL ALCOHOL < 3.0 mg/dl (<3)
[2020-03-14 13:17] LABS: BILIRUBIN Negative (Negative); BLOOD Negative (Negative); CLARITY Clear (Clear); COLOR Yellow (Yellow); GLUCOSE Negative (Negative); KETONE 2+ (Negative); LEUKO ESTERASE Negative (Negative); NITRITE Negative (Negative); PH 5.5 (4.5-8.0); SPECIFIC GRAVITY >= 1.030 (1.001-1.030)
[2020-03-14 13:23] VITALS: BP 182/72
[2020-03-14 13:24] LABS: URINE AMPHETAMINES > 1000 (1000ng/ml); URINE BARBITURATES < 200 (200ng/ml); URINE BENZODIAZEPINES < 200 (200ng/ml); URINE CANNABINOIDS (THC) > 50 (50ng/ml); URINE COCAINE < 300 (300ng/ml); URINE METHADONE < 300 (300ng/ml); URINE OPIATES < 300 (300ng/ml)
[2020-03-14 13:25] LABS: URINE PHENCYCLIDINE < 25 (25ng/ml)
[2020-03-14 13:30] LABS: BACTERIA TRACE; MUCOUS 1+
== END 2020-03-14 13:24 | disposition home or self-care (01) ==
LOC: ED 23:12
PROVIDERS: Internal Medicine
DX: R45.1 Restlessness and agitation (principal); R05 Cough; Z79.899 Other long term (current) drug therapy; Z72.0 Tobacco use

== ENCOUNTER 2020-03-25 01:09 | Inpatient (IN) | payer OTHER ==
[~2020-03-25] VITALS: Ht 177.8 cm; Wt 86.2 kg
[2020-03-25 01:13] VITALS: BP 152/83
[2020-03-25 03:17] LABS: BASO % 0.3 % (0.0-1.0); EOS # 0.1 10*3/uL (0.0-0.4); EOS % 1.2 % (1.0-4.0); HEMATOCRIT 35.7 % (42.0-52.0); LYMPH # 2.4 10*3/uL (1.3-4.4); LYMPH % 23.7 % (27.0-41.0); MEAN CELL VOLUME 87.1 fl (80.0-94.0); MEAN CORPUSCULAR HGB 29.5 pg (27.0-31.0); MEAN CORPUSCULAR HGB CONC 33.9 g/dl (33.0-37.0); MEAN PLATELET VOLUME 9.3 fl (9.6-12.3); MONO # 0.8 10*3/uL (0.1-1.0); MONO % 7.9 % (3.0-9.0); NEUT # 6.7 10*3/uL (2.3-7.9); NEUT % 66.8 % (47.0-73.0); PLATELET COUNT AUTOMATED 261 10*3/uL (130-400); RED CELL DISTRI WIDTH 12.8 % (0-14.5)
[2020-03-25 03:34] LABS: ALBUMIN 3.5 gm/dl (3.1-4.5); ALKALINE PHOSPHATASE 89 U/L (45-117); BUN 21 mg/dl (7-24); CHLORIDE 110 mmol/L (98-107); CREATININE 1.18 mg/dL (0.70-1.30); POTASSIUM 3.7 mmol/L (3.5-5.1); SGOT/AST 37 IU/L (3-35); SGPT/ALT 40 U/L (12-78); SODIUM 143 mmol/L (136-145); TOTAL PROTEIN 8.2 gm/dL (6.4-8.2)
[2020-03-25 03:35] LABS: ACETAMINOPHEN (TYLENOL) < 5.0 ug/ml (10-30); ETHYL ALCOHOL < 3.0 mg/dl (<3); TROPONIN I < 0.015 ng/ml (<0.045)
[2020-03-25 05:41] VITALS: BP 162/81
[2020-03-25 12:10] VITALS: BP 150/80
[2020-03-25 12:32] VITALS: BP 132/74
[2020-03-25 17:12] LABS: BILIRUBIN Negative (Negative); BLOOD Negative (Negative); CLARITY Clear (Clear); COLOR Yellow (Yellow); GLUCOSE Negative (Negative); KETONE Trace (Negative); LEUKO ESTERASE Negative (Negative); NITRITE Negative (Negative); SPECIFIC GRAVITY 1.025 (1.001-1.030)
[2020-03-25 17:14] LABS: URINE AMPHETAMINES > 1000 (1000ng/ml); URINE BARBITURATES < 200 (200ng/ml); URINE BENZODIAZEPINES < 200 (200ng/ml); URINE CANNABINOIDS (THC) < 50 (50ng/ml); URINE COCAINE < 300 (300ng/ml); URINE METHADONE < 300 (300ng/ml); URINE OPIATES < 300 (300ng/ml); URINE PHENCYCLIDINE < 25 (25ng/ml)
[2020-03-25 17:31] LABS: BACTERIA TRACE
[2020-03-25 22:52] VITALS: BP 114/81
[2020-03-25 23:15] VITALS: BP 102/50
[2020-03-26] VITALS: BP 102/50
[2020-03-26 08:00] VITALS: BP 104/62
[2020-03-26 12:00] VITALS: BP 102/56
[2020-03-26 16:00] VITALS: BP 114/57
[2020-03-26 20:00] VITALS: BP 102/47
[2020-03-27] VITALS: BP 114/60
[2020-03-27 08:00] VITALS: BP 146/69
[2020-03-27 12:00] VITALS: BP 136/67
== END 2020-03-27 15:18 | disposition left against medical advice (07) | DRG 137 ==
LOC: ED 01:09 → 5E 12:07 → EDHOLD 12:07 → 5E 23:06
PROVIDERS: Emergency Medicine; ADMIT Internal Medicine; ATTEND Internal Medicine
DX: U07.1 COVID-19 (principal); F11.23 Opioid dependence with withdrawal; D64.9 Anemia, unspecified; R45.1 Restlessness and agitation; F90.9 Attention-deficit hyperactivity disorder, unspecified type; F32.9 Major depressive disorder, single episode, unspecified; F14.10 Cocaine abuse, uncomplicated; G43.709 Chronic migraine without aura, not intractable, without status migrainosus; B18.2 Chronic viral hepatitis C; F41.9 Anxiety disorder, unspecified; G25.81 Restless legs syndrome; F17.210 Nicotine dependence, cigarettes, uncomplicated; F12.10 Cannabis abuse, uncomplicated; Z53.29 Procedure and treatment not carried out because of patient's decision for other reasons; Z79.899 Other long term (current) drug therapy; Z86.16 Personal history of COVID-19

== ENCOUNTER 2020-03-30 21:17 | Inpatient (IN) | payer OTHER ==
[~2020-03-30] VITALS: Ht 180.3 cm; Wt 90.4 kg
[2020-03-30 21:26] VITALS: BP 113/49
[2020-03-30 21:49] LABS: BASO % 0.2 % (0.0-1.0); EOS # 0.2 10*3/uL (0.0-0.4); LYMPH # 2.2 10*3/uL (1.3-4.4); LYMPH % 22.2 % (27.0-41.0); MEAN CELL VOLUME 87.9 fl (80.0-94.0); MEAN CORPUSCULAR HGB 29.4 pg (27.0-31.0); MEAN CORPUSCULAR HGB CONC 33.4 g/dl (33.0-37.0); MEAN PLATELET VOLUME 9.3 fl (9.6-12.3); MONO # 1.1 10*3/uL (0.1-1.0); MONO % 11.1 % (3.0-9.0); NEUT # 6.4 10*3/uL (2.3-7.9); NEUT % 64.3 % (47.0-73.0); PLATELET COUNT AUTOMATED 312 10*3/uL (130-400); RED BLOOD COUNT 3.64 10*6/uL (4.50-5.90); RED CELL DISTRI WIDTH 12.7 % (0-14.5); WHITE BLOOD COUNT 9.9 10*3/uL (4.8-10.8)
[2020-03-30 22:05] LABS: ALBUMIN 3.3 gm/dl (3.1-4.5); ALKALINE PHOSPHATASE 90 U/L (45-117); BUN 17 mg/dl (7-24); CHLORIDE 107 mmol/L (98-107); CREATININE 0.75 mg/dL (0.70-1.30); POTASSIUM 3.4 mmol/L (3.5-5.1); SGOT/AST 23 IU/L (3-35); SGPT/ALT 36 U/L (12-78); SODIUM 139 mmol/L (136-145)
[2020-03-30] MEDS ORDERED: IBU800 M1 PO (23:50)
[2020-03-30] MEDS ORDERED: BIKTARVY 50-201 EACH PO (23:50)
[2020-03-30] MEDS ORDERED: MIXED AMPHETAMI30 MG PO (23:51)
[2020-03-30] MEDS ORDERED: SEROQUEL XR400 MG PO (23:51)
[2020-03-31] VITALS: BP 113/49
[2020-03-31 07:29] VITALS: BP 115/57
[2020-03-31 08:00] VITALS: BP 106/51
[2020-03-31 13:57] LABS: BASO % 0.2 % (0.0-1.0); EOS # 0.2 10*3/uL (0.0-0.4); EOS % 1.7 % (1.0-4.0); HEMATOCRIT 32.7 % (42.0-52.0); LYMPH # 1.4 10*3/uL (1.3-4.4); LYMPH % 15.2 % (27.0-41.0); MEAN CELL VOLUME 88.4 fl (80.0-94.0); MEAN CORPUSCULAR HGB 29.5 pg (27.0-31.0); MEAN CORPUSCULAR HGB CONC 33.3 g/dl (33.0-37.0); MEAN PLATELET VOLUME 9.3 fl (9.6-12.3); MONO # 0.7 10*3/uL (0.1-1.0); MONO % 8.2 % (3.0-9.0); NEUT # 6.7 10*3/uL (2.3-7.9); NEUT % 74.5 % (47.0-73.0); PLATELET COUNT AUTOMATED 304 10*3/uL (130-400); RED CELL DISTRI WIDTH 12.7 % (0-14.5); WHITE BLOOD COUNT 9.1 10*3/uL (4.8-10.8)
[2020-03-31 14:25] LABS: ALKALINE PHOSPHATASE 78 U/L (45-117); BUN 11 mg/dl (7-24); CHLORIDE 111 mmol/L (98-107); CREATININE 0.74 mg/dL (0.70-1.30); POTASSIUM 3.6 mmol/L (3.5-5.1); SGOT/AST 22 IU/L (3-35); SGPT/ALT 32 U/L (12-78); SODIUM 140 mmol/L (136-145); TOTAL PROTEIN 7.2 gm/dL (6.4-8.2)
[2020-03-31 16:00] VITALS: BP 110/49
[2020-03-31 20:00] VITALS: BP 104/38
[2020-04-01] VITALS: BP 103/57
[2020-04-01 08:00] VITALS: BP 133/80
[2020-04-01 11:51] LABS: BASO % 0.4 % (0.0-1.0); EOS # 0.1 10*3/uL (0.0-0.4); EOS % 2.5 % (1.0-4.0); HEMATOCRIT 34.3 % (42.0-52.0); LYMPH # 1.2 10*3/uL (1.3-4.4); LYMPH % 24.8 % (27.0-41.0); MEAN CELL VOLUME 87.7 fl (80.0-94.0); MEAN CORPUSCULAR HGB 28.9 pg (27.0-31.0); MEAN CORPUSCULAR HGB CONC 32.9 g/dl (33.0-37.0); MEAN PLATELET VOLUME 9.2 fl (9.6-12.3); MONO # 0.5 10*3/uL (0.1-1.0); MONO % 9.8 % (3.0-9.0); NEUT % 62.3 % (47.0-73.0); PLATELET COUNT AUTOMATED 334 10*3/uL (130-400); RED BLOOD COUNT 3.91 10*6/uL (4.50-5.90); RED CELL DISTRI WIDTH 12.8 % (0-14.5); WHITE BLOOD COUNT 4.9 10*3/uL (4.8-10.8)
[2020-04-01 12:00] VITALS: BP 134/65
[2020-04-01 12:15] LABS: ALBUMIN 2.9 gm/dl (3.1-4.5); ALKALINE PHOSPHATASE 79 U/L (45-117); BUN 11 mg/dl (7-24); CHLORIDE 112 mmol/L (98-107); CREATININE 0.76 mg/dL (0.70-1.30); POTASSIUM 4.1 mmol/L (3.5-5.1); SGOT/AST 21 IU/L (3-35); SGPT/ALT 29 U/L (12-78); SODIUM 141 mmol/L (136-145); TOTAL PROTEIN 7.5 gm/dL (6.4-8.2)
[2020-04-01 16:00] VITALS: BP 106/52
[2020-04-01 20:00] VITALS: BP 138/73
[2020-04-02] VITALS: BP 125/49
[2020-04-02 08:00] VITALS: BP 124/70
== END 2020-04-02 13:52 | disposition left against medical advice (07) | DRG 383 ==
LOC: ED 21:17 → 4E 22:06 → EDHOLD 22:06 → 5E 22:18 → 4E 03-31 09:13
PROVIDERS: Social Worker Clinical; Student in an Organized Health Care Education/Training Program; ADMIT Internal Medicine; ATTEND Internal Medicine
PROC: 05HY33Z Insertion of Infusion Device into Upper Vein, Percutaneous Approach (ICD-10-PCS; principal; 2020-04-02)
DX: L02.414 Cutaneous abscess of left upper limb (principal); D64.9 Anemia, unspecified; E44.1 Mild protein-calorie malnutrition; F90.9 Attention-deficit hyperactivity disorder, unspecified type; F19.90 Other psychoactive substance use, unspecified, uncomplicated; G25.81 Restless legs syndrome; U07.1 COVID-19; L98.8 Other specified disorders of the skin and subcutaneous tissue; F32.5 Major depressive disorder, single episode, in full remission; F90.2 Attention-deficit hyperactivity disorder, combined type; E87.6 Hypokalemia; G43.709 Chronic migraine without aura, not intractable, without status migrainosus; F17.210 Nicotine dependence, cigarettes, uncomplicated; Z53.29 Procedure and treatment not carried out because of patient's decision for other reasons; Z71.6 Tobacco abuse counseling; Z68.26 Body mass index [BMI] 26.0-26.9, adult; F41.9 Anxiety disorder, unspecified; Z79.899 Other long term (current) drug therapy; Z79.1 Long term (current) use of non-steroidal anti-inflammatories (NSAID)

== ENCOUNTER 2020-04-19 13:52 | Emergency (ER) | payer OTHER ==
[~2020-04-19] VITALS: Ht 180.3 cm; Wt 88.5 kg
[~2020-04-19 13:52] MED LIST changes: +IBU800 M1 PO
[2020-04-19 13:59] VITALS: BP 121/61
[2020-04-19 14:42] LABS: BASO % 0.2 % (0.0-1.0); EOS % 0.5 % (1.0-4.0); HEMATOCRIT 37.4 % (42.0-52.0); LYMPH # 1.4 10*3/uL (1.3-4.4); LYMPH % 23.6 % (27.0-41.0); MEAN CELL VOLUME 85.4 fl (80.0-94.0); MEAN CORPUSCULAR HGB 29.2 pg (27.0-31.0); MEAN CORPUSCULAR HGB CONC 34.2 g/dl (33.0-37.0); MEAN PLATELET VOLUME 9.2 fl (9.6-12.3); MONO # 0.4 10*3/uL (0.1-1.0); NEUT % 68.5 % (47.0-73.0); PLATELET COUNT AUTOMATED 322 10*3/uL (130-400); RED BLOOD COUNT 4.38 10*6/uL (4.50-5.90); RED CELL DISTRI WIDTH 12.3 % (0-14.5); WHITE BLOOD COUNT 5.9 10*3/uL (4.8-10.8)
[2020-04-19 14:56] LABS: ALBUMIN 3.4 gm/dl (3.1-4.5); ALKALINE PHOSPHATASE 104 U/L (45-117); BUN 18 mg/dl (7-24); CHLORIDE 108 mmol/L (98-107); CREATININE 0.86 mg/dL (0.70-1.30); LIPASE 82 U/L (73-393); POTASSIUM 3.3 mmol/L (3.5-5.1); SGOT/AST 23 IU/L (3-35); SGPT/ALT 34 U/L (12-78); SODIUM 138 mmol/L (136-145); TOTAL PROTEIN 8.6 gm/dL (6.4-8.2)
== END 2020-04-19 19:18 | disposition home or self-care (01) ==
LOC: ED 13:52
PROVIDERS: Emergency Medicine
DX: R07.81 Pleurodynia (principal); F31.9 Bipolar disorder, unspecified; F90.9 Attention-deficit hyperactivity disorder, unspecified type; F17.200 Nicotine dependence, unspecified, uncomplicated; Z79.899 Other long term (current) drug therapy; Z90.89 Acquired absence of other organs

== ENCOUNTER 2020-05-16 22:35 | Emergency (ER) | payer OTHER ==
[~2020-05-16] VITALS: Wt 99.8 kg
[2020-05-16 22:36] VITALS: BP 121/41
[2020-05-16 23:09] LABS: BASO % 0.3 % (0.0-1.0); EOS # 0.1 10*3/uL (0.0-0.4); EOS % 1.9 % (1.0-4.0); HEMATOCRIT 32.9 % (42.0-52.0); LYMPH # 2.5 10*3/uL (1.3-4.4); LYMPH % 38.6 % (27.0-41.0); MEAN CELL VOLUME 86.8 fl (80.0-94.0); MEAN CORPUSCULAR HGB 30.1 pg (27.0-31.0); MEAN CORPUSCULAR HGB CONC 34.7 g/dl (33.0-37.0); MEAN PLATELET VOLUME 9.3 fl (9.6-12.3); MONO # 0.9 10*3/uL (0.1-1.0); NEUT # 2.9 10*3/uL (2.3-7.9); NEUT % 45.2 % (47.0-73.0); PLATELET COUNT AUTOMATED 231 10*3/uL (130-400); RED BLOOD COUNT 3.79 10*6/uL (4.50-5.90); RED CELL DISTRI WIDTH 13.7 % (0-14.5); WHITE BLOOD COUNT 6.4 10*3/uL (4.8-10.8)
[2020-05-16 23:26] LABS: ALBUMIN 3.8 gm/dl (3.1-4.5); ALKALINE PHOSPHATASE 86 U/L (45-117); BUN 23 mg/dl (7-24); CHLORIDE 110 mmol/L (98-107); CREATININE 1.15 mg/dL (0.70-1.30); LIPASE 64 U/L (73-393); POTASSIUM 3.3 mmol/L (3.5-5.1); SGOT/AST 42 IU/L (3-35); SGPT/ALT 50 U/L (12-78); SODIUM 141 mmol/L (136-145); TOTAL PROTEIN 8.5 gm/dL (6.4-8.2)
[2020-05-17 01:06] LABS: BILIRUBIN Negative (Negative); BLOOD Negative (Negative); CLARITY Clear (Clear); COLOR Dark Yellow (Yellow); GLUCOSE Negative (Negative); KETONE Trace (Negative); LEUKO ESTERASE Negative (Negative); NITRITE Negative (Negative); SPECIFIC GRAVITY >= 1.030 (1.001-1.030)
[2020-05-17 01:15] LABS: RBC 0-2 rbc/hpf (0-2); WBC 0-2 wbc/hpf (0-5)
== END 2020-05-17 04:16 | disposition home or self-care (01) ==
LOC: ED 22:35
PROVIDERS: Emergency Medicine
DX: B34.9 Viral infection, unspecified (principal); J06.9 Acute upper respiratory infection, unspecified; F31.9 Bipolar disorder, unspecified; F17.200 Nicotine dependence, unspecified, uncomplicated; Z79.899 Other long term (current) drug therapy; Z98.890 Other specified postprocedural states

== ENCOUNTER 2020-05-17 23:14 | Emergency (ER) | payer OTHER | END 2020-05-18 01:08 | LOC: ED 23:14 | DX: F19.10 Other psychoactive substance abuse, uncomplicated (principal); F31.9 Bipolar disorder, unspecified; F17.200 Nicotine dependence, unspecified, uncomplicated; Z79.899 Other long term (current) drug therapy; Z90.49 Acquired absence of other specified parts of digestive tract; Z98.890 Other specified postprocedural states ==

== ENCOUNTER 2020-08-05 14:26 | Emergency (ER) | payer OTHER ==
[2020-08-05 14:49] VITALS: BP 133/65
[2020-08-05 19:22] LABS: BILIRUBIN Negative (Negative); BLOOD 3+ (Negative); CLARITY Cloudy (Clear); COLOR Dark Yellow (Yellow); GLUCOSE Negative (Negative); KETONE 1+ (Negative); LEUKO ESTERASE Trace (Negative); NITRITE Negative (Negative); SPECIFIC GRAVITY >= 1.030 (1.001-1.030)
[2020-08-05 19:30] LABS: URINE AMPHETAMINES > 1000 (1000ng/ml); URINE BARBITURATES < 200 (200ng/ml); URINE BENZODIAZEPINES < 200 (200ng/ml); URINE CANNABINOIDS (THC) < 50 (50ng/ml); URINE COCAINE < 300 (300ng/ml); URINE METHADONE < 300 (300ng/ml); URINE OPIATES < 300 (300ng/ml); URINE PHENCYCLIDINE < 25 (25ng/ml)
[2020-08-05 19:40] LABS: COARSE GRANULAR CAST 0-2; FINE GRANULAR CAST 0-2; MUCOUS 2+; RBC 31-40 rbc/hpf (0-2)
[2020-08-05 20:44] LABS: HEMATOCRIT 45.8 % (42.0-52.0); MEAN CELL VOLUME 89.6 fl (80.0-94.0); MEAN CORPUSCULAR HGB 30.9 pg (27.0-31.0); MEAN CORPUSCULAR HGB CONC 34.5 g/dl (33.0-37.0); MEAN PLATELET VOLUME 9.9 fl (9.6-12.3); PLATELET COUNT AUTOMATED 263 10*3/uL (130-400); RED BLOOD COUNT 5.11 10*6/uL (4.50-5.90); RED CELL DISTRI WIDTH 13.6 % (0-14.5); WHITE BLOOD COUNT 24.7 10*3/uL (4.8-10.8)
[2020-08-05 20:54] LABS: ACT PARTIAL THROMBO TIME 27.6 SECONDS (20.0-32.1)
[2020-08-05 21:04] LABS: PLATELET SUFFICIENCY NORMAL (NORMAL); TOTAL CELLS COUNTED 100 #CELLS
[2020-08-05 21:09] LABS: ALBUMIN 4.5 gm/dl (3.1-4.5); BUN 31 mg/dl (7-24); CHLORIDE 112 mmol/L (98-107); CREATININE 1.79 mg/dL (0.70-1.30); LIPASE 60 U/L (73-393); POTASSIUM 3.9 mmol/L (3.5-5.1); SGOT/AST 38 IU/L (3-35); SGPT/ALT 77 U/L (12-78); SODIUM 142 mmol/L (136-145); TOTAL PROTEIN 9.9 gm/dL (6.4-8.2)
[2020-08-05 21:10] LABS: ALKALINE PHOSPHATASE 101 U/L (45-117); TROPONIN I < 0.015 ng/ml (<0.045)
[2020-08-05 21:21] LABS: ETHYL ALCOHOL < 3.0 mg/dl (<3)
== END 2020-08-06 10:43 | disposition left against medical advice (07) ==
LOC: ED 14:26
PROVIDERS: Emergency Medicine
DX: F15.90 Other stimulant use, unspecified, uncomplicated (principal); Z79.899 Other long term (current) drug therapy

== ENCOUNTER 2020-08-08 02:02 | Emergency (ER) | payer OTHER | END 2020-08-09 01:33 | disposition home or self-care (01) | LOC: ED 02:02 | DX: F10.129 Alcohol abuse with intoxication, unspecified (principal); F17.200 Nicotine dependence, unspecified, uncomplicated; Z90.89 Acquired absence of other organs; Z79.899 Other long term (current) drug therapy; Y90.9 Presence of alcohol in blood, level not specified ==

== ENCOUNTER 2020-09-06 19:52 | Emergency (ER) | payer OTHER ==
[~2020-09-06] VITALS: Ht 180.3 cm; Wt 98.4 kg
[2020-09-06 19:53] VITALS: BP 122/72
[2020-09-06 20:08] LABS: BASO % 0.2 % (0.0-1.0); EOS # 0.1 10*3/uL (0.0-0.4); EOS % 0.7 % (1.0-4.0); HEMATOCRIT 34.7 % (42.0-52.0); LYMPH # 1.6 10*3/uL (1.3-4.4); LYMPH % 12.6 % (27.0-41.0); MEAN CELL VOLUME 88.7 fl (80.0-94.0); MEAN CORPUSCULAR HGB 31.7 pg (27.0-31.0); MEAN CORPUSCULAR HGB CONC 35.7 g/dl (33.0-37.0); MEAN PLATELET VOLUME 9.2 fl (9.6-12.3); MONO # 1.4 10*3/uL (0.1-1.0); MONO % 10.7 % (3.0-9.0); NEUT # 9.5 10*3/uL (2.3-7.9); NEUT % 75.6 % (47.0-73.0); PLATELET COUNT AUTOMATED 307 10*3/uL (130-400); RED BLOOD COUNT 3.91 10*6/uL (4.50-5.90); RED CELL DISTRI WIDTH 12.5 % (0-14.5); WHITE BLOOD COUNT 12.6 10*3/uL (4.8-10.8)
[2020-09-06 20:21] LABS: BUN 24 mg/dl (7-24); CHLORIDE 102 mmol/L (98-107); CREATININE 1.21 mg/dL (0.70-1.30); ETHYL ALCOHOL < 3.0 mg/dl (<3); POTASSIUM 3.2 mmol/L (3.5-5.1); SODIUM 139 mmol/L (136-145)
[2020-09-06 22:27] LABS: BILIRUBIN 1+ (Negative); BLOOD Negative (Negative); CLARITY Clear (Clear); COLOR Dark Yellow (Yellow); GLUCOSE Negative (Negative); KETONE Trace (Negative); LEUKO ESTERASE Negative (Negative); NITRITE Negative (Negative); PH 5.5 (4.5-8.0); SPECIFIC GRAVITY >= 1.030 (1.001-1.030)
[2020-09-06 22:40] LABS: URINE AMPHETAMINES > 1000 (1000ng/ml); URINE BARBITURATES < 200 (200ng/ml); URINE BENZODIAZEPINES < 200 (200ng/ml); URINE CANNABINOIDS (THC) > 50 (50ng/ml); URINE COCAINE > 300 (300ng/ml); URINE METHADONE < 300 (300ng/ml); URINE OPIATES > 300 (300ng/ml)
[2020-09-06 22:41] LABS: URINE PHENCYCLIDINE < 25 (25ng/ml)
== END 2020-09-07 07:01 | disposition home or self-care (01) ==
LOC: ED 19:52
PROVIDERS: Internal Medicine
DX: E87.6 Hypokalemia (principal); F19.10 Other psychoactive substance abuse, uncomplicated; Z79.899 Other long term (current) drug therapy; Z98.890 Other specified postprocedural states

== ENCOUNTER 2020-09-11 17:13 | Emergency (ER) | payer OTHER ==
[~2020-09-11] VITALS: Ht 180.3 cm; Wt 104.3 kg
[2020-09-11 17:19] VITALS: BP 114/52
[2020-09-11 18:12] LABS: BASO % 0.2 % (0.0-1.0); EOS # 0.1 10*3/uL (0.0-0.4); EOS % 0.7 % (1.0-4.0); HEMATOCRIT 34.3 % (42.0-52.0); LYMPH # 1.4 10*3/uL (1.3-4.4); LYMPH % 17.7 % (27.0-41.0); MEAN CORPUSCULAR HGB 31.8 pg (27.0-31.0); MEAN CORPUSCULAR HGB CONC 35.3 g/dl (33.0-37.0); MEAN PLATELET VOLUME 9.5 fl (9.6-12.3); MONO # 0.5 10*3/uL (0.1-1.0); MONO % 6.4 % (3.0-9.0); NEUT % 74.8 % (47.0-73.0); PLATELET COUNT AUTOMATED 306 10*3/uL (130-400); RED BLOOD COUNT 3.81 10*6/uL (4.50-5.90); RED CELL DISTRI WIDTH 12.7 % (0-14.5)
[2020-09-11 18:28] LABS: ALBUMIN 3.3 gm/dl (3.1-4.5); ALKALINE PHOSPHATASE 68 U/L (45-117); BUN 11 mg/dl (7-24); CHLORIDE 110 mmol/L (98-107); CREATININE 0.93 mg/dL (0.70-1.30); POTASSIUM 4.1 mmol/L (3.5-5.1); SGOT/AST 19 IU/L (3-35); SGPT/ALT 30 U/L (12-78); SODIUM 140 mmol/L (136-145)
[2020-09-11 18:33] LABS: ETHYL ALCOHOL < 3.0 mg/dl (<3)
== END 2020-09-11 18:58 ==
LOC: ED 17:13
PROVIDERS: Student in an Organized Health Care Education/Training Program
DX: F10.129 Alcohol abuse with intoxication, unspecified (principal); F15.90 Other stimulant use, unspecified, uncomplicated; F17.200 Nicotine dependence, unspecified, uncomplicated; Z90.89 Acquired absence of other organs; Z79.899 Other long term (current) drug therapy; Y90.9 Presence of alcohol in blood, level not specified

== ENCOUNTER 2022-02-11 12:46 | Emergency (ER) | payer OTHER ==
[2022-02-11 12:54] VITALS: BP 108/40
[2022-02-11 15:29] LABS: BILIRUBIN Negative (Negative); BLOOD Negative (Negative); CLARITY Clear (Clear); COLOR Yellow (Yellow); GLUCOSE Negative (Negative); KETONE Trace (Negative); LEUKO ESTERASE Negative (Negative); NITRITE Negative (Negative); SPECIFIC GRAVITY >= 1.030 (1.001-1.030)
[2022-02-11 15:32] LABS: URINE AMPHETAMINES > 1000 (1000ng/ml); URINE BARBITURATES < 200 (200ng/ml); URINE BENZODIAZEPINES < 200 (200ng/ml); URINE CANNABINOIDS (THC) < 50 (50ng/ml); URINE COCAINE < 300 (300ng/ml); URINE METHADONE < 300 (300ng/ml); URINE OPIATES > 300 (300ng/ml)
[2022-02-11 15:44] LABS: URINE PHENCYCLIDINE < 25 (25ng/ml)
[2022-02-11 16:24] LABS: BACTERIA TRACE; MUCOUS 1+; RBC 0-2 rbc/hpf (0-2); WBC 0-2 wbc/hpf (0-5)
== END 2022-02-11 16:32 ==
LOC: ED 12:46
PROVIDERS: Student in an Organized Health Care Education/Training Program
DX: F15.10 Other stimulant abuse, uncomplicated (principal); Z79.899 Other long term (current) drug therapy; Z90.89 Acquired absence of other organs; Z87.891 Personal history of nicotine dependence

== ENCOUNTER 2022-03-25 11:48 | Inpatient (IN) | payer OTHER ==
[~2022-03-25] VITALS: Ht 180 cm; Wt 102.0 kg
[2022-03-25 11:49] VITALS: BP 120/92
[2022-03-25 13:08] LABS: BASO % 0.5 % (0.0-1.0); EOS # 0.2 10*3/uL (0.0-0.4); EOS % 3.5 % (1.0-4.0); HEMATOCRIT 33.7 % (42.0-52.0); LYMPH % 31.2 % (27.0-41.0); MEAN CELL VOLUME 88.5 fl (80.0-94.0); MEAN CORPUSCULAR HGB 31.8 pg (27.0-31.0); MEAN CORPUSCULAR HGB CONC 35.9 g/dl (33.0-37.0); MEAN PLATELET VOLUME 9.3 fl (9.6-12.3); MONO # 0.6 10*3/uL (0.1-1.0); MONO % 9.5 % (3.0-9.0); NEUT # 3.6 10*3/uL (2.3-7.9); NEUT % 55.1 % (47.0-73.0); PLATELET COUNT AUTOMATED 294 10*3/uL (130-400); RED BLOOD COUNT 3.81 10*6/uL (4.50-5.90); RED CELL DISTRI WIDTH 12.2 % (0-14.5); WHITE BLOOD COUNT 6.5 10*3/uL (4.8-10.8)
[2022-03-25 13:23] LABS: ALKALINE PHOSPHATASE 64 U/L (46-116); BUN 17 mg/dl (9-23); CHLORIDE 101 mmol/L (98-107); POTASSIUM 2.9 mmol/L (3.4-5.1); SGPT/ALT 29 U/L (10-49); TOTAL PROTEIN 7.7 gm/dL (6.0-8.0)
[2022-03-25 13:26] LABS: ETHYL ALCOHOL < 3.0 mg/dl (<3)
[2022-03-25 13:54] LABS: URINE AMPHETAMINES Positive (1000ng/ml); URINE BARBITURATES Negative (200ng/ml); URINE BENZODIAZEPINES Negative (200ng/ml); URINE CANNABINOIDS (THC) Positive (50ng/ml); URINE COCAINE Negative (300ng/ml); URINE METHADONE Negative (300ng/ml); URINE OPIATES Negative (300ng/ml); URINE PHENCYCLIDINE Negative (25ng/ml)
[2022-03-25 20:00] VITALS: BP 117/71
[2022-03-26 00:04] VITALS: BP 122/75
[2022-03-26 08:00] VITALS: BP 119/69
[2022-03-26 12:00] VITALS: BP 107/57
[2022-03-26 16:00] VITALS: BP 100/53
[2022-03-26 20:00] VITALS: BP 115/60
[2022-03-27] VITALS: BP 111/43
[2022-03-27 08:00] VITALS: BP 98/54
[2022-03-27 12:00] VITALS: BP 107/61
[2022-03-27 16:00] VITALS: BP 121/68; BP 150/88
[2022-03-27 20:00] VITALS: BP 107/65
[2022-03-28] VITALS: BP 106/56
[2022-03-28 08:00] VITALS: BP 105/64
== END 2022-03-28 11:20 | disposition home or self-care (01) | DRG 773 ==
LOC: ED 11:48 → EDHOLD 14:36 → 4E 14:36
PROVIDERS: Internal Medicine; ADMIT Student in an Organized Health Care Education/Training Program; ATTEND Student in an Organized Health Care Education/Training Program
DX: F11.23 Opioid dependence with withdrawal (principal); E87.1 Hypo-osmolality and hyponatremia; K74.60 Unspecified cirrhosis of liver; F41.9 Anxiety disorder, unspecified; F32.A Depression, unspecified; G25.81 Restless legs syndrome; R73.9 Hyperglycemia, unspecified; R74.01 Elevation of levels of liver transaminase levels; F90.9 Attention-deficit hyperactivity disorder, unspecified type; D64.9 Anemia, unspecified; E87.6 Hypokalemia; F15.20 Other stimulant dependence, uncomplicated; Z86.19 Personal history of other infectious and parasitic diseases

== ENCOUNTER 2022-04-03 08:33 | Emergency (ER) | payer OTHER ==
[2022-04-03 08:38] VITALS: BP 156/80
[2022-04-03 09:55] LABS: URINE AMPHETAMINES Positive (1000ng/ml); URINE BARBITURATES Negative (200ng/ml); URINE BENZODIAZEPINES Negative (200ng/ml); URINE CANNABINOIDS (THC) Positive (50ng/ml); URINE COCAINE Negative (300ng/ml); URINE METHADONE Negative (300ng/ml); URINE OPIATES Positive (300ng/ml); URINE PHENCYCLIDINE Negative (25ng/ml)
== END 2022-04-03 13:20 | disposition home or self-care (01) ==
LOC: ED 08:33
PROVIDERS: Emergency Medicine
DX: S93.601A Unspecified sprain of right foot, initial encounter (principal); F20.9 Schizophrenia, unspecified; F19.10 Other psychoactive substance abuse, uncomplicated; Z90.89 Acquired absence of other organs; Z90.49 Acquired absence of other specified parts of digestive tract; Z59.00 Homelessness unspecified; Z79.899 Other long term (current) drug therapy; Z72.0 Tobacco use; X58.XXXA Exposure to other specified factors, initial encounter; Y93.89 Activity, other specified; Y92.89 Other specified places as the place of occurrence of the external cause; Y99.8 Other external cause status

== ENCOUNTER 2022-04-03 14:21 | Emergency (ER) | payer OTHER ==
[2022-04-03 14:36] VITALS: BP 146/78
== END 2022-04-03 15:50 | disposition home or self-care (01) ==
LOC: ED 14:21
DX: F19.10 Other psychoactive substance abuse, uncomplicated (principal); Z90.89 Acquired absence of other organs; Z90.49 Acquired absence of other specified parts of digestive tract; Z72.0 Tobacco use; Z59.00 Homelessness unspecified; F10.90 Alcohol use, unspecified, uncomplicated; F15.10 Other stimulant abuse, uncomplicated

== ENCOUNTER 2023-03-21 16:24 | Emergency (ER) | payer OTHER ==
[2023-03-21] MEDS ORDERED: LEVOFLOXACIN750 M2 PO (16:55)
[2023-03-21] MEDS ORDERED: CEPHALEXIN500 M1 PO (16:55)
[2023-03-21 17:06] VITALS: BP 118/68
== END 2023-03-21 17:12 | disposition home or self-care (01) ==
LOC: ED 16:24
DX: S91.331A Puncture wound without foreign body, right foot, initial encounter (principal); F17.200 Nicotine dependence, unspecified, uncomplicated; Z79.899 Other long term (current) drug therapy; Z90.89 Acquired absence of other organs; Z98.890 Other specified postprocedural states; W22.09XA Striking against other stationary object, initial encounter; Y93.89 Activity, other specified; Y92.89 Other specified places as the place of occurrence of the external cause; Y99.8 Other external cause status

== ENCOUNTER → 2024-10-30 | Outpatient (CLI) | payer OTHER ==
[~2024-10-30] MED LIST changes: +CEPHALEXIN500 M1 PO; +LEVOFLOXACIN750 M2 PO
== END | disposition home or self-care (01) ==
LOC: ORTHO 12:27
PROVIDERS: ATTEND Orthopaedic Surgery
DX: S62.331A Displaced fracture of neck of second metacarpal bone, left hand, initial encounter for closed fracture (principal); M79.89 Other specified soft tissue disorders; X58.XXXA Exposure to other specified factors, initial encounter; Y93.89 Activity, other specified; Y92.89 Other specified places as the place of occurrence of the external cause; Y99.8 Other external cause status